=== PATIENT | female | born 1935 | race Caucasian/White ===

== ENCOUNTER → 2021-04-23 15:33 | Outpatient (BNVA) | payer MEDICARE, SELFPAY | PROVIDERS: Family Provider Family Medicine; PCP Family Medicine; Visit Provider Emergency Medicine | DX: R53.83 Other fatigue (principal); Z86.39 Personal history of other endocrine, nutritional and metabolic disease; I50.9 Heart failure, unspecified | CPT/HCPCS: 80053; 81000; 82652; 83880; 84443; 85025 ==

== ENCOUNTER → 2022-02-04 12:34 | Outpatient (BNVA) | payer MEDICARE, SELFPAY | PROVIDERS: Family Provider Family Medicine; PCP Family Medicine; Visit Provider Emergency Medicine | DX: M81.0 Age-related osteoporosis without current pathological fracture (principal); M54.50 Low back pain, unspecified; Z98.890 Other specified postprocedural states; Z87.81 Personal history of (healed) traumatic fracture | CPT/HCPCS: 72100 ==

== ENCOUNTER 2022-02-18 15:34 | Outpatient (CLI) | payer MEDICARE, SELFPAY ==
--- NOTE | 2022-02-18 16:45 | MR_ITS ---
WS: [id number] MRI LUMBAR SPINE NONCONTRAST HISTORY: M54.50 - Low back pain, unspecified COMPARISON: 05/28/2016 TECHNIQUE: Sagittal and axial multisequence imaging is submitted. Marked increase in thoracic kyphosis and mild increase in cervical lordosis. Multiple thoracic spine compression fractures including T6, T7, T8 and T12. Mild thoracolumbar scoliosis. Prior vertebroplasties at T12, L1, L2 and L4. New marrow edema througho ut the L3 vertebral body with minimal loss of height by approximately 10% is new. No additional acute compression fracture. No retropulsion of the L3 vertebral body. Disc spaces are desiccated and narrowed throughout. Conus terminates normally at L1-2 disc level. T12-L1: Mild asymmetric disc bulge with a shallow LEFT paracentral disc protrusion, mild facet and li gamentum flavum hypertrophy. Very slight retropulsion of the posterior superior endplate of L1 simila r to the prior study. L1-L2: Mild annular disc bulge slight retrolisthesis of the posterior superior endplate of L2. Mild e ncroachment upon the ventral thecal sac and subarticular recesses. No high-grade stenosis. L2-L3: Mild annular disc bulge with a central disc protrusion. Mild facet and ligamentum flavum hyper trophy with mild RIGHT foraminal narrowing. L3-L4: Mild annular disc bulge with marked ligamentum flavum and facet arthritis. Mild encroachment i nto the thecal sac and subarticular recesses. Only mild foraminal narrowing. L4-L5: Mild annular disc bulging with mild ligamentum flavum hypertrophy and facet arthritis. Mild RI GHT foraminal stenosis. L5-S1: Mild annular disc bulge. No stenosis. Bilateral renal cysts. Cholelithiasis. MR/MR lumbar spine wo con* [id number] IMPRESSION: 1. New acute minimal, 10% compression fracture L3. No retropulsion. 2. Multiple prior vertebroplasties including T12, L1, L2 and L4. 3. Minimal retropulsion of the posterior superior endplate of L1 and L2 withou t stenosis. 4. Marked facet joint arthritis and ligamentum flavum hypertrophy with osteope vianney. 5. Shallow LEFT paracentral disc protrusion at T12-L1 contacts the LEFT latera l thecal sac without significant stenosis.
== END 2022-02-18 15:35 | disposition home or self-care (01) ==
PROVIDERS: PCP Family Medicine; Visit Provider Family Medicine
DX: M54.50 Low back pain, unspecified (principal); Z87.81 Personal history of (healed) traumatic fracture; Z98.890 Other specified postprocedural states; M47.819 Spondylosis without myelopathy or radiculopathy, site unspecified; M85.80 Other specified disorders of bone density and structure, unspecified site
CPT/HCPCS: 72148

== ENCOUNTER → 2022-02-24 08:39 | Outpatient (BNVA) | payer MEDICARE, SELFPAY | PROVIDERS: PCP Family Medicine; Visit Provider Anesthesiology Pain Medicine | DX: M47.816 Spondylosis without myelopathy or radiculopathy, lumbar region (principal); M51.16 Intervertebral disc disorders with radiculopathy, lumbar region; Z98.890 Other specified postprocedural states; Z79.891 Long term (current) use of opiate analgesic | CPT/HCPCS: 99205 ==

== ENCOUNTER 2022-03-12 05:18 | Day surgery (SDC) | payer MEDICARE, SELFPAY ==
[2022-03-11 12:06] VITALS: BMI 21.9
[2022-03-12] VITALS (10 sets, daily range): BP systolic 101–160; BP diastolic 57–74; PULSE 72–83; RESP 16–24; TEMP 36.1–36.6; O2SAT 91–100
--- NOTE | 2022-03-12 | SCC_ITS ---
Procedure done: Kyphoplasty L L3 104.7 seconds of fluoroscopic guidance, for a cumulative dose of 57.77 mGy, was provided to Dr. Hooker by the radiology department. C-arm images of the lumbar spine were saved for the patient's permanent record. [facility]
[2022-03-12] MEDS: sodium chloride 0.9% 1,000 ML 30 ML IV (06:18)
--- NOTE | 2022-03-12 06:39 | SC_ITS ---
WS: [id number] C-arm fluoroscopy for kyphoplasty, 03/12/2022 Clinical Data: intra-op Comparison: None. Findings: A lumbar kyphoplasty is performed. SC/C-arm FL for Kyphoplasty Impression: Lumbar kyphoplasty.
--- NOTE | 2022-03-12 06:55 | W.PM.OPSUD ---
Surgery/Procedure H&P Update DATE OF PROCEDURE: March 12, 2022 DATE H&P PERFORMED: 03/12/22 CHANGES TO PREVIOUS DOCUMENTATION: None PREOP DIAGNOSIS: L3 compression fracture PRIMARY INDICATION FOR PROCEDURE: pain, fracture PLANNED PROCEDURE: Operation Date: 03/12/22 07:00 Proposed Procedures p Kyphoplasty [id number],S32.030A(Not Applicable) - Conor Hooker MD ADDITIONAL INFORMATION: Choice, general/mac
[2022-03-12] MEDS: ceFAZolin 1,000 MG in sodium chloride 0.9% (plus) 50 ML 100 MG IV (06:59)
[2022-03-12] MEDS: iohexol 300 mg/mL 100 mL Btl 30 ML IV (07:35)
--- NOTE | 2022-03-12 13:07 | P.OP_ITS ---
Operative Report Date of procedure: March 12, 2022 Pre-op diagnosis: Preop Diagnosis L3 compression fracture Post-op diagnosis: L3 compression fracture Procedure: Pre-op diagnosis: Preop Diagnosis ? compression fracture? Post-op diagnosis: Compression fracture of L3 vertebral body Post-op findings: Compression fracture of L3 vertebral body Procedure done: Kyphoplasty L L3 Pathology: L3 bone biopsy sent Surgeon: Conor Hooker MD Estimated blood loss: 25 IV fluids: Per anesthesia Brief History: History of compression fractures Procedure: PREOPERATIVE DIAGNOSIS:??Compression fracture of L3 vertebral bodies POSTOPERATIVE DIAGNOSIS: Same PROCEDURE: 1 .?Kyphoplasty L3 2.? Fluoroscopic Guidance of the above SURGEON:? Conor Hooker M.D. ANESTHESIA:? Local Anesthesia PROCEDURE IN DETAIL:? Informed consent was obtained, explaining risks, benefits, and alternatives of the procedure to the patient.?? Operative site was marked in the holding area.? The patient was then taken to the procedure room and placed in the prone position on the procedure table.? The back and buttocks were prepped with ? ? ChloraPrep solution and a sterile drape was applied.? A time-out was performed to verify the correct patient, procedure, and location. Using fluoroscopy, the spine was examined.? The ( L3 ) ?level was verified in AP and lateral views.? I planned a bilateral trans pedicular approach.? The right side approach was marked with a skin marker.? A small stab incision was made with a #15 blade.? The introducer cannula was advanced to dock with the right pedicle in an AP view.?? It was advanced through the pedicle using a mallet in both AP and lateral views, taking care not to traverse the medial aspect of the pedicle in the AP view until the tip was into the vertebral body.? ??The cannula was advanced to the posterior third of the body in a lateral view.? Following this a biopsy probe was advanced to the anterior 1/3 of the vertebral body and withdrawn under fluoro guidance. ?The manual drill was used to then create space into which deploy the balloon.? Balloon was then placed and inflated.?? Position in AP and lateral views was optimal. Next the left side approach was identified and marked with a skin marker.? A small stab incision was made with a #15 blade.? The introducer cannula was advanced to dock with the pedicle in an AP view.?? It was advanced through the pedicle using a mallet in both AP and lateral views, taking care not to traverse the medial aspect of the pedicle in the AP view until the tip was into the verte bral body.? ??The cannula was advanced to the posterior third of the body in a lateral view.?? The manual drill was used to then create space into which deploy the balloon.? Balloon was then placed and inflated.?? Position in AP and lateral views was optimal. Balloons were removed and I placed barium impregnated PMMA cement under direct fluoroscopic visualization ruling out extravasation or vascular uptake.? There was good interdigitization and filling of the vertebral? body. The cannulas were removed making sure not to withdraw any cement. 3-0 nylon was used to close the minimal incision and sterile dressing was applied. The patient tolerated the procedure well with no apparent complications. ? IMPRESSION: successful?Kyphoplasty L3
--- NOTE | 2022-03-12 14:42 | ANE.PACU2 ---
Inpatient post-anesthesia follow up: Airway intact: Yes Vital signs: Temperature 97.2 F Pulse Rate 81 Respiratory Rate 18 Blood Pressure 101/57 Pulse Oximetry 95 Oxygen Delivery Me thod Room Air Oxygen Flow Rate 8 Fraction of Inspir ed Oxygen Hydration adequate: Yes Nausea and vomiting: No Pain level: 3 Mental status: Baseline
== END 2022-03-12 10:15 | disposition home or self-care (01) ==
PROVIDERS: PCP Family Medicine; Visit Provider Anesthesiology Pain Medicine
PROC: (CPT 22514; principal; 2022-03-12 07:00)
DX: S32.030A Wedge compression fracture of third lumbar vertebra, initial encounter for closed fracture (principal); X58.XXXA Exposure to other specified factors, initial encounter; K21.9 Gastro-esophageal reflux disease without esophagitis; M19.90 Unspecified osteoarthritis, unspecified site; M81.0 Age-related osteoporosis without current pathological fracture
CPT/HCPCS: 22514; 76000; 88307; 88311; J0690; J1100; J2001; J2370; J2405; J2704; J3010; J3490; J7030; Q9967

== ENCOUNTER → 2022-03-24 09:22 | Outpatient (BNVA) | payer MEDICARE, SELFPAY | PROVIDERS: PCP Family Medicine; Visit Provider Anesthesiology Pain Medicine | DX: M54.41 Lumbago with sciatica, right side (principal); Z79.891 Long term (current) use of opiate analgesic | CPT/HCPCS: 99212 ==

== ENCOUNTER → 2022-04-13 09:52 | Outpatient (BNVA) | payer MEDICARE, SELFPAY | PROVIDERS: PCP Family Medicine; Visit Provider Anesthesiology Pain Medicine | DX: M54.16 Radiculopathy, lumbar region (principal); M54.41 Lumbago with sciatica, right side | CPT/HCPCS: 72110; 99214 ==

== ENCOUNTER → 2022-04-29 09:50 | Outpatient (BNVA) | payer MEDICARE, SELFPAY | PROVIDERS: PCP Family Medicine; Visit Provider Anesthesiology Pain Medicine | DX: M54.41 Lumbago with sciatica, right side (principal) | CPT/HCPCS: 99213; 99214 ==

== ENCOUNTER 2022-06-01 13:45 | Outpatient (CLI) | payer MEDICARE, SELFPAY ==
--- NOTE | 2022-06-01 14:30 | MR_ITS ---
WS: [id number] MRI LUMBAR SPINE NONCONTRAST HISTORY: Osteoporosis. Fractures. Low back pain radiating down LEFT leg. COMPARISON: 02/18/2022 TECHNIQUE: Sagittal and axial multisequence imaging is submitted. Marked increase in thoracic kyphosis centered at T6-7. Mild anterior wedging of T6, T7, T8. Numerous prior kyphoplasty' s are identified beginning at T12-L4. New compression fracture at L5 by 2 5%. There is marrow edema in the L5 vertebral body. The remaining fractures have not changed. Disc spaces are narrowed and desiccated throughout. Conus terminates normally at L1-2 disc level. T12-L1: Mild disc bulging with a LEFT paracentral disc protrusion. L1-L2: Mild disc bulging centrally. No stenosis. L2-L3: Mild disc bulge with a central disc protrusion. Mild bilateral foraminal narrowing. L3-L4: Mild disc bulge. Mild facet arthritis. L4-L5: Mild disc bulging and facet arthritis. L5-S1: Mild disc bulging. No stenosis. LEFT renal cyst 10 mm. MR/MR lumbar spine wo con* [id number] IMPRESSION: 1. New L5 compression fracture, 25% without retropulsion. 2. Multiple prior kyphoplasty' s from T12 through T4. 3. Mild anterior wedging of T6 through T8.
== END 2022-06-01 13:46 | disposition home or self-care (01) ==
LOC: RAD 13:45
PROVIDERS: PCP Family Medicine; Visit Provider Anesthesiology Pain Medicine
DX: Z13.1 Encounter for screening for diabetes mellitus (principal); M81.0 Age-related osteoporosis without current pathological fracture; M54.16 Radiculopathy, lumbar region; S32.059A Unspecified fracture of fifth lumbar vertebra, initial encounter for closed fracture; X58.XXXA Exposure to other specified factors, initial encounter; M89.49 Other hypertrophic osteoarthropathy, multiple sites
CPT/HCPCS: 72148; 80048

== ENCOUNTER → 2022-06-02 08:53 | Outpatient (BNVA) | payer MEDICARE, SELFPAY | PROVIDERS: PCP Family Medicine; Visit Provider Anesthesiology Pain Medicine | DX: M54.41 Lumbago with sciatica, right side (principal); S32.050A Wedge compression fracture of fifth lumbar vertebra, initial encounter for closed fracture; X58.XXXA Exposure to other specified factors, initial encounter | CPT/HCPCS: 99214 ==

== ENCOUNTER → 2022-09-15 10:36 | Outpatient (BNVA) | payer MEDICARE, SELFPAY | PROVIDERS: PCP Family Medicine; Visit Provider Family Medicine | DX: R60.0 Localized edema (principal); I10 Essential (primary) hypertension | CPT/HCPCS: 80053; 83880 ==

== ENCOUNTER 2022-12-24 06:00 | Outpatient (RCR) | payer MEDICARE, SELFPAY | END 2022-12-27 23:59 | disposition home or self-care (01) | LOC: MPT 06:00 | PROVIDERS: PCP Family Medicine; Visit Provider Family Medicine | DX: R26.9 Unspecified abnormalities of gait and mobility (principal); M54.50 Low back pain, unspecified | CPT/HCPCS: 97162 ==

== ENCOUNTER 2022-12-28 06:00 | Outpatient (RCR) | payer MEDICARE, SELFPAY | END 2023-01-27 23:59 | disposition home or self-care (01) | LOC: MPT 06:00 | PROVIDERS: PCP Family Medicine; Visit Provider Family Medicine | DX: M54.50 Low back pain, unspecified (principal); R26.89 Other abnormalities of gait and mobility | CPT/HCPCS: 97110; 97112; 97140 ==

== ENCOUNTER 2023-01-28 06:00 | Outpatient (RCR) | payer MEDICARE, SELFPAY | END 2023-02-26 23:59 | disposition home or self-care (01) | LOC: MPT 06:00 | PROVIDERS: PCP Family Medicine; Visit Provider Family Medicine | DX: M54.59 Other low back pain (principal); R26.81 Unsteadiness on feet | CPT/HCPCS: 97110; 97112; 97140 ==

== ENCOUNTER 2023-02-27 06:00 | Outpatient (RCR) | payer MEDICARE, SELFPAY | END 2023-03-29 23:59 | disposition home or self-care (01) | LOC: MPT 06:00 | PROVIDERS: PCP Family Medicine; Visit Provider Family Medicine | DX: R26.9 Unspecified abnormalities of gait and mobility (principal); M54.50 Low back pain, unspecified | CPT/HCPCS: 97110; 97112 ==

== ENCOUNTER → 2023-03-23 14:54 | Outpatient (BNVA) | payer MEDICARE, SELFPAY | PROVIDERS: PCP Family Medicine; Visit Provider Nurse Practitioner Family | DX: M25.562 Pain in left knee (principal); M25.462 Effusion, left knee | CPT/HCPCS: 73562 ==

== ENCOUNTER → 2023-08-13 08:50 | Outpatient (BNVA) | payer MEDICARE, SELFPAY | PROVIDERS: PCP Family Medicine; Visit Provider Emergency Medicine | DX: M54.6 Pain in thoracic spine (principal) | CPT/HCPCS: 72070 ==

== ENCOUNTER 2023-08-14 11:46 | Emergency (ER) | payer MEDICARE, SELFPAY ==
--- NOTE | 2023-08-14 11:50 | CTR_ITS ---
PROCEDURE INFORMATION: Exam: CT Thoracic Spine Without Contrast Exam date and time: 08/14/2023 12:02 PM Age: 87 years old Clinical indication: Pain in thoracic spine TECHNIQUE: Imaging protocol: Computed tomography of the thoracic spine without contrast. Radiation optimization: All CT scans at this facility use at least one of these dose optimization techniques: automated exposure control; mA and/or kV adjustment per patient size (includes targeted exams where dose is matched to clinical indication); or iterative reconstruction. REPORTING DATA: Count of CT and Cardiac NM exams in prior 12 months: This patient has received 0 known CTs and 0 known cardiac nuclear medicine studies in the 12 months prior to the current study. COMPARISON: CR XR thoracic spine 2V [id number] 08/13/2023 9:00 AM RADIATION DOSE METRICS: Total DLP (mGy-cm): 307.36 FINDINGS: Bones/joints: No acute fracture or subluxation is evident. Anterior wedge compression deformities of the T5 through T8 vertebral bodies are noted with no focal cortical discontinuity identified to suggest acuity. Diffuse osteopenia. T12 compression fracture, and L1 compression fracture partially imaged, status post prior vertebroplasty. Retropulsion of bony material at T12 is noted. Diffuse osteopenia. Soft tissues: There is no paraspinous soft tissue swelling evident. Lungs: Calcified 9 mm nodule in the right upper lobe. Lungs, where imaged demonstrates scattered scarring and/or atelectasis. Additionally, there is a 7 mm ground-glass opacity in the left upper lobe (series 3, image 41). Coronary arteries: Atherosclerosis of major vasculature including coronaries. CT/CT thoracic spin wo con* [id number] IMPRESSION: 1. Left upper lobe 7 mm ground-glass opacity. Per current Fleischner recommendations,Recommend CT Chest at 6-12 months to confirm persistence of the nodule, then CT Chest at 3 years and 5 years. (Reference: Ros) 2. No acute thoracic spine fracture or subluxation identified. Compression fracture deformity of T5 demonstrates chronic features. 3. Osteopenia. 4. Atherosclerosis including coronary. REFERENCES: Ros Harding et al. Guidelines for Management of Incidental Pulmonary Nodules Detected on CT Images: From the Fleischner Society 2017. Radiology. 2017;284(1):228-243.
[2023-08-14 11:51] VITALS: BP 159/67; PULSE 75; RESP 14; TEMP 36.4; O2SAT 97; BMI 20.2
--- NOTE | 2023-08-14 11:51 | ED_ITS ---
HPI - Back Pain/Injury General: Chief Complaint: Back Pain/Injury Stated Complaint: BACK PAIN Time Seen by Provider: 08/14/23 11:47 Source: patient and EMS Mode of arrival: EMS Limitations: no limitations History of Present Illness: 87-year-old female states she been havin g thoracic back pain over the last 3 to 4 days she had an x-ray done yesterday that showed a possible thoracic wedge fracture. States she takes ibuprofen she been having worsening pain today states she actually had less pain since she has been in the ambulance her pain currently is a 2 out of 10 denies difficulty walking denies any urinary incontinence. 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 GERD (gastroesophageal reflux disease) Osteoarthritis Surgical History History of kyphoplasty H/O hemorrhoidectomy H/O cervical spine surgery Family History Mother Diabetes Stroke Brother Cancer Father Heart disease Social History Smoking and tobacco/nicotine status: never used tobacco/nicotine Second hand smoke exposure: No Alcohol intake: never Substance/Drug Use: never Do you think of yourself as: Straight/Heterosexual Current gender identity: Female Female Reproductive History: Spontaneous abortions: No Physical Exam Const: COMMON NORMALS: no acute distress, patient oriented x3 and healthy appearing HENMT: COMMON NORMALS: normocephalic and atraumatic HEAD & SCALP: normocephalic and atraumatic Neck/C-Spine: COMMON NORMALS: full ROM and supple Chest: COMMONS NORMALS: normal inspection of the chest Resp: COMMON NORMALS: normal respiratory effort Cardio: COMMON NORMALS: regular rate, regular rhythm and No murmurs present (Cardio) RATE: regular rate RHYTHM: regular rhythm Back/Pelvis: OTHER: Tenderness over thoracic spine Extremity: COMMON NORMALS: normal to inspection and full ROM Neuro: COMMON NORMALS: patient oriented x3, moves all extremities and no focal motor deficits Psych: COMMON NORMALS: mental status grossly normal, Normal thought process present and cooperative THOUGHT PROCESS: Normal thought process present Skin: COMMON NORMALS: no rashes or lesions noted and no wounds GENERAL SKIN EXAM: no rashes or lesions noted Course Vital Signs: Vital signs: Vital Signs Temperature 97.6 F 08/14/23 11:51 Pulse Rate 75 08/14/23 11:51 Respiratory Rate 14 08/14/23 11:51 Blood Pressure 159/67 08/14/23 11:51 Pulse Oximetry 97 08/14/23 11:51 Oxygen Delivery Me thod Room Air 08/14/23 11:51 MDM - Back Pain/Injury Medical Decision Making Patient presents here with back pain CT of her thoracic spine showed no acute fractures her pain is resolved here she feels much improved I did inform her of the findings concerning in her chest did recommend follow-up with her PCP and likely an outpatient chest CT through her PCP she is return if worsening she understands agrees to plan. Medical Records I reviewed the patient's medical records. Labs I reviewed the patient's lab results. Radiology Impressions Thoracic Spine CT 08/14/23 11:50 IMPRESSION: 1. Left upper lobe 7 mm ground-glass opacity. Per current Fleischner recommendations,Recommend CT Chest at 6-12 months to confirm persistence of the nodule, then CT Chest at 3 years and 5 years. (Reference: Ros) 2. No acute thoracic spine fracture or subluxation identified. Compression fracture deformity of T5 demonstrates chronic features. 3. Osteopenia. 4. Atherosclerosis including coronary. REFERENCES: Ros Harding et al. Guidelines for Management of Incidental Pulmonary Nodules Detected on CT Images: From the Fleischner Society 2017. Radiology. 2017;284(1):228-243. Chest X-Ray 08/14/23 12:41 IMPRESSION: No acute cardiopulmonary abnormality identified. The ground-glass opacity noted by thoracic spine CT will require follow-up by CT as it is not visualized by chest x-ray. Linear/oval densities overlying the left mid lung likely soft tissue calcification or density external to the patient. All radiology interpretation(s) finalized by discharge Discharge Plan Discharge Patient Disposition: Home Clinical Impression: Back pain, thoracic Qualifiers: Chronicity: unspecified Back pain laterality: unspecified Qualified Code(s): M54.6 - Pain in thoracic spine Condition: Stable Prescriptions: No Action loratadine [Allergy Relief (loratadine)] 10 mg tablet 10 mg PO QDAY PRN (Reason: allergies) ibuprofen 200 mg tablet 200 mg PO Q6H PRN (Reason: Pain) tramadol 50 mg tablet 50 mg PO BID PRN (Reason: pain) 7 Days Qty: 14 0RF tizanidine 2 mg tablet 2 mg PO Q8H PRN (Reason: muscle spasticity) Qty: 30 2RF fluticasone propionate [Flonase Allergy Relief] 50 mcg/actuation spray,suspension 2 spray intranasal DAILY Qty: 16 5RF albuterol sulfate [Ventolin HFA] 90 mcg/actuation HFA aerosol inhaler 1 puff INHALATION QID PRN (Reason: shortness of breath or wheezing) Qty: 18 3RF clobetasol 0.05 % ointment 1 applic topical .COMPLEX PRN (Reason: Itching) Rx Instructions: 1 applic topical; apply to lip 3x weekly chlorhexidine gluconate 0.12 % mouthwash See Rx Instructions .ROUTE .COMPLEX Rx Instructions: RINSE WITH ONE CAP FULL FOR THIRTY SECONDS AND SPIT OUT. USE TWICE DAILY Antifungal (clotrimazole) 1 % cream 1 applic topical BID PRN (Reason: FLARES) Discharge Orders: Discharge ED (Routine); Ordered 08/14/23 Ordered By: Salud Tiwari Referrals: Deya Torres MD [Primary Care Provider] - 1-3 days Discharge Diet: Advance as tolerated Discharge Activity: Resume usual activity Patient Instructions: Back Pain (ED) Coding Level of Care Code ED [employer] Analyst for Rohit Browne
--- NOTE | 2023-08-14 12:41 | XRR_ITS ---
PROCEDURE INFORMATION: Exam: XR Chest Exam date and time: 08/14/2023 12:48 PM Age: 87 years old Clinical indication: Mass, lump, or swelling in the chest; Prior surgery; Surgery date: 6+ months; Surgery type: Kyphos TECHNIQUE: Imaging protocol: Radiologic exam of the chest. Views: 1 view. COMPARISON: CT thoracic spin wo con* [id number] 08/14/2023 12:02 PM FINDINGS: Lungs: Calcified nodule again noted in the right upper lobe. There is no acute pneumonia or edema evident. Linear densities overlie the left mid lung, not fully characterized but favored external to the patient. Pleural spaces: No pleural effusion identified. Heart/Mediastinum: The heart is not enlarged. The mediastinum is not enlarged. The heart and mediastinum are not enlarged. Vasculature: Thoracic aorta is mildly tortuous and elongated. Diaphragm: Small posterior diaphragmatic eventration or Bochdalek hernias noted. Bones/joints: Multilevel thoracolumbar kyphoplasties. XR/XR chest 1V portable [id number] IMPRESSION: No acute cardiopulmonary abnormality identified. The ground-glass opacity noted by thoracic spine CT will require follow-up by CT as it is not visualized by chest x-ray. Linear/oval densities overlying the left mid lung likely soft tissue calcification or density external to the patient.
== END 2023-08-14 13:33 | disposition home or self-care (01) ==
PROVIDERS: Emergency Provider Emergency Medicine; PCP Family Medicine
DX: M54.6 Pain in thoracic spine (principal); M85.88 Other specified disorders of bone density and structure, other site; I25.10 Atherosclerotic heart disease of native coronary artery without angina pectoris
CPT/HCPCS: 71045; 72128; 99284

== ENCOUNTER → 2023-10-07 15:39 | Outpatient (BNVA) | payer MEDICARE, SELFPAY | PROVIDERS: PCP Family Medicine; Visit Provider Emergency Medicine | DX: R05.9 Cough, unspecified (principal) | CPT/HCPCS: 71046 ==

== ENCOUNTER 2023-11-24 06:00 | Outpatient (RCR) | payer MEDICARE, SELFPAY | END 2023-11-28 23:59 | disposition home or self-care (01) | LOC: MPT 06:00 | PROVIDERS: PCP Family Medicine; Visit Provider Family Medicine | DX: M54.50 Low back pain, unspecified (principal); G89.29 Other chronic pain | CPT/HCPCS: 97162 ==

== ENCOUNTER 2023-11-29 06:00 | Outpatient (RCR) | payer MEDICARE, SELFPAY | END 2023-12-28 23:59 | disposition home or self-care (01) | LOC: MPT 06:00 | PROVIDERS: PCP Family Medicine; Visit Provider Family Medicine | DX: M54.50 Low back pain, unspecified (principal); G89.29 Other chronic pain | CPT/HCPCS: 97110; G0283 ==

== ENCOUNTER → 2024-04-10 15:36 | Outpatient (BNVA) | payer MEDICARE, SELFPAY | PROVIDERS: PCP Family Medicine; Referring Provider Nurse Practitioner; Visit Provider Nurse Practitioner | DX: M85.89 Other specified disorders of bone density and structure, multiple sites (principal) | CPT/HCPCS: 73523 ==

== ENCOUNTER → 2024-04-20 10:04 | Outpatient (BNVA) | payer MEDICARE, SELFPAY | PROVIDERS: PCP Family Medicine; Visit Provider Family Medicine | DX: R82.90 Unspecified abnormal findings in urine (principal) | CPT/HCPCS: 81000 ==

== ENCOUNTER → 2024-07-26 16:29 | Outpatient (BNVA) | payer MEDICARE, SELFPAY | PROVIDERS: PCP Family Medicine; Visit Provider Emergency Medicine | DX: R30.0 Dysuria (principal); N39.0 Urinary tract infection, site not specified | CPT/HCPCS: 81000; 87086 ==

== ENCOUNTER 2024-12-27 14:21 | Outpatient (CLI) | payer MEDICARE, SELFPAY ==
--- NOTE | 2024-12-27 14:29 | XR_ITS ---
WS: [email or web address] Right foot, 3 views, 12/27/2024 Clinical Data: M79.671 - Pain in right foot Comparison: None. Findings: No fractures or dislocations are seen. No bone destruction or erosion is noted. There is a small bunion over the head of the right first metatarsal. There is a plantar spur. XR/XR foot RT min 3V* [id number] Impression: Small bunion at head of right first metatarsal.
--- NOTE | 2024-12-27 14:29 | XR_ITS ---
WS: [email or web address] Right ankle, 3 views, 12/27/2024 Clinical Data: M79.671 - Pain in right foot Comparison: None. Findings: No fractures or dislocations are seen. The ankle mortise is normal. The talus and calcaneus are unremarkable. There is soft tissue swelling over the medial and lateral malleolus. There is a plantar spur. XR/XR ankle RT min 3V* [id number] Impression: 1. Negative for right ankle fracture. 2. Soft tissue swelling over medial and lateral malleolus.
--- NOTE | 2024-12-27 15:15 | USCV_ITS ---
Abril Sanchez Age: 89 Gender: F : 1935 Exam Date: 12/27/2024 15:01 Ordering Phys: Deya Torres MD Technologist: [employer] [place] [facility] [place]: [place] lower extrmity pain HISTORY: right lower extremity pain PROCEDURES: Venous duplex imaging was performed in only the right lower extremity. The following venous structures were evaluated: common femoral vein, profunda vein, proximal portion of the greater saphenous vein, superficial femoral vein, and the popliteal vein. In addition, the posterior tibial and peroneal trunk were evaluated. FINDINGS: Normal 2-D Doppler and augmentation and compressibility throughout the lower extremity venous structures. Additional imaging through the proximal calf veins also reveals no thrombus. Limited evaluation of the greater saphenous vein is patent with no thrombus. CONCLUSIONS No DVT right lower extremity. Dr. Freya Taalmantes DO (Electronically Signed) Final Date: 27 December 2024 15:46 S
== END 2024-12-27 14:22 | disposition home or self-care (01) ==
LOC: RAD 14:21
PROVIDERS: PCP Family Medicine; Visit Provider Family Medicine
DX: M21.611 Bunion of right foot (principal); M79.661 Pain in right lower leg; M79.89 Other specified soft tissue disorders; M77.8 Other enthesopathies, not elsewhere classified
CPT/HCPCS: 73610; 73630; 93971

== ENCOUNTER → 2025-01-15 11:18 | Outpatient (BNVA) | payer MEDICARE, SELFPAY | PROVIDERS: PCP Family Medicine; Visit Provider Family Medicine | DX: M10.9 Gout, unspecified (principal); M79.89 Other specified soft tissue disorders; M79.604 Pain in right leg; M79.671 Pain in right foot | CPT/HCPCS: 84550 ==

== ENCOUNTER 2025-01-17 09:15 | Outpatient (CLI) | payer MEDICARE, SELFPAY ==
--- NOTE | 2025-01-17 09:21 | XRR_ITS ---
PROCEDURE INFORMATION: Exam: XR Thoracic Spine Exam date and time: 01/17/2025 9:26 AM Age: 89 years old Clinical indication: Pain in thoracic spine; Prior surgery; Surgery date: 6+ months; Surgery type: Kyphoplasty, cervical spine surgery; Pain in upper back and posterior left shoulder x1 months, no specific injury; Additional info: M54.9 - dorsalgia, unspecified TECHNIQUE: Imaging protocol: Radiologic exam of the thoracic spine. Views: 3 views. COMPARISON: CT thoracic spin wo con* [id number] 08/14/2023 12:02 PM FINDINGS: Bones/joints: Post kyphoplasty changes are seen in the T12, L1, L2, L3 and L4 vertebral bodies. Chronic compression deformities involving the T5, T6, T7 and T8 vertebral bodies are seen. No definite acute fracture. Soft tissues: Unremarkable. Vasculature: Calcified atherosclerotic changes are seen in the thoracic aorta. XR/XR thoracic spine 3V* [id number] IMPRESSION: 1. Chronic compression deformities involving the T5, T6, T7 and T8 vertebral bodies. 2. Additional findings as described.
--- NOTE | 2025-01-17 09:21 | XRR_ITS ---
PROCEDURE INFORMATION: Exam: XR Left Shoulder Exam date and time: 01/17/2025 9:26 AM Age: 89 years old Clinical indication: Pain in upper back and posterior left shoulder x1 months, no specific injury; Additional info: M89.8x1 - other specified disorders of bone, shoulder TECHNIQUE: Imaging protocol: Radiologic exam of the left shoulder. Views: 2 or more views. COMPARISON: CR XR chest 2V* [id number] 10/07/2023 3:53 PM FINDINGS: Bones/joints: Diffuse osteopenia. Up to mild AC joint DJD with preservation of the remaining left shoulder joint spaces. No acute fracture or dislocation Soft tissues: Normal. XR/XR shoulder LT min 2V* [id number] IMPRESSION: See above
== END 2025-01-17 09:16 | disposition home or self-care (01) ==
PROVIDERS: PCP Family Medicine; Visit Provider Family Medicine
DX: M89.8X1 Other specified disorders of bone, shoulder (principal); M62.830 Muscle spasm of back; M48.54XD Collapsed vertebra, not elsewhere classified, thoracic region, subsequent encounter for fracture with routine healing; M85.812 Other specified disorders of bone density and structure, left shoulder; Z98.890 Other specified postprocedural states; I70.0 Atherosclerosis of aorta
CPT/HCPCS: 72072; 73030

== ENCOUNTER 2025-01-28 05:00 | Outpatient (RCR) | payer MEDICARE, SELFPAY | END 2025-02-26 23:59 | disposition home or self-care (01) | LOC: MPT 05:00 | PROVIDERS: PCP Family Medicine; Visit Provider Podiatrist Foot & Ankle Surgery | DX: M72.2 Plantar fascial fibromatosis (principal) | CPT/HCPCS: 97110; 97140; 97162 ==

== ENCOUNTER → 2025-02-05 14:55 | Outpatient (BNVA) | payer MEDICARE, SELFPAY | PROVIDERS: PCP Family Medicine; Visit Provider Nurse Practitioner | DX: R60.9 Edema, unspecified (principal); R06.00 Dyspnea, unspecified | CPT/HCPCS: 83880 ==

== ENCOUNTER → 2025-02-27 08:47 | Outpatient (BNVA) | payer MEDICARE, SELFPAY | PROVIDERS: PCP Family Medicine; Visit Provider Family Medicine | DX: R82.90 Unspecified abnormal findings in urine (principal) | CPT/HCPCS: 81000 ==

== ENCOUNTER 2025-04-01 15:53 | Emergency (ER) | payer MEDICARE, SELFPAY ==
[2025-04-01 15:54] VITALS: BP 119/80; PULSE 71; RESP 16; TEMP 36.9; O2SAT 93; BMI 18.1
--- NOTE | 2025-04-01 16:03 | XRR_ITS ---
PROCEDURE INFORMATION: Exam: XR Right Hip Exam date and time: 04/01/2025 4:39 PM Age: 89 years old Clinical indication: Hip pain; Right hip; Additional info: RT hip/pelvic pain after bending injury TECHNIQUE: Imaging protocol: Radiologic exam of the right hip. Views: 1 view hip with pelvis when performed. COMPARISON: CR XR hip BI m 5V wo/w pel* [id number] 04/10/2024 3:46 PM FINDINGS: Limitations: Slight medial rotation of the right femur on the frontal views Bones/joints: Osseous demineralization. Normal alignment. No evidence of acute fracture or dislocation. Soft tissues: The soft tissues are within normal limits. XR/XR hip RT 2-3V wo/w pel* [id number] IMPRESSION: No evidence of acute fracture or dislocation.
--- NOTE | 2025-04-01 16:04 | ED_ITS ---
HPI - Back Pain/Injury General: Chief Complaint: Back Pain/Injury Stated Complaint: BACK PAIN Time Seen by Provider: 04/01/25 15:54 Source: patient Mode of arrival: EMS Limitations: no limitations History of Present Illness: Patient is an 89-year-old female who presents the emergency department by ambulance due to a fall 3 days ago and subsequent right lower back pain. 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 States she has been ambulatory since but pain has steadily worsened. Reporting the pain is currently a 7/, she has applied Voltaren and taken [id number] pain medications. No bowel or bladder incontinence, no saddle anesthesia, no paralysis or weakness distally, no other concerning back symptoms. She does report a history of osteoporosis and has had multiple kyphoplasty procedures. MD elicited complaint: back pain Pertinent past history: recent trauma Onset (ago): day(s) (3) Timing: constant Severity: moderate Pain scale (0-10): 7 Location: right lower back Radiation: none Exacerbating factors: movement and walking Context: trauma Associated symptoms: Deny abdominal pain, difficulty walking, fecal incontinence, fever(s) or syncope Related Data Home Medications ?Medication ?Instructions ?Recorded ?Confirmed naproxen sodium 220 mg tablet 220 mg PO BID PRN Fever Or Pain 04/01/25 04/01/25 Previous Rx's ?Medication ?Instructions ?Recorded fluticasone propionate 50 2 spray intranasal DAILY all ergy 05/27/23 mcg/actuation nasal symptoms #16 grams spray,suspension (Flonase Allergy Relief) furosemide 20 mg tablet See Rx Instructions .Route 0 02/26/25 .COMPLEX #30 tabs Allergies Allergy/AdvReac Type Severity Reaction Status Date / Time amoxicillin (From Augmentin) Allergy ADR-Vomitin Verified 03/26/25 09:33 g clavulanic acid (From Allergy ADR-Vomitin Verified 03/26/25 09:33 Augmentin) g Review of Systems General: Reports: 10 or more systems reviewed and unremarkable except in HPI and below Const: Reports: other (denies trauma); Denies: fever(s), change in weight or night sweats Card: Denies: chest pain, lightheadedness or syncope Resp: Denies: dyspnea GI: Denies: abdominal pain or fecal incontinence : Denies: urinary incontinence Musc: Reports: back pain and joint pain (Right hip); Denies: neck pain or extremity pain Skin/Breast: Denies: rash or skin pain Neuro: Denies: headache(s), numbness in extremities, weakness in extremities, sensory changes, lack of coordination, difficulty walking, frequent falls or involuntary movements PFS ED PFSH: Medical History History of compression fracture of spine History of thyroid nodule Osteoporosis 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 GERD (gastroesophageal reflux disease) Osteoarthritis Surgical History History of kyphoplasty H/O hemorrhoidectomy H/O cervical spine surgery Family History Mother Diabetes Stroke Brother Cancer Father Heart disease Social History Smoking and tobacco/nicotine status: never used tobacco/nicotine Second hand smoke exposure: No Alcohol intake: never Substance/Drug Use: never Do you think of yourself as: Straight/Heterosexual Current gender identity: Female Female Reproductive History: Spontaneous abortions: No Physical Exam Const: COMMON NORMALS: no acute distress, patient oriented x3, no limitations and alert NUTRITIONAL APPEARANCE: thin Resp: COMMON NORMALS: normal respiratory effort, No retractions, No use of accessory muscles and clear to auscultation bilaterally AUSCULTATION: clear to auscultation bilaterally Cardio: COMMON NORMALS: regular rate, regular rhythm, S1 normal heart sound present and S2 normal heart sound present RATE: regular rate RHYTHM: regular rhythm HEART SOUNDS: S1 normal heart sound present and S2 normal heart sound present Back/Pelvis: COMMON NORMALS: straight leg raise negative bilaterally OTHER: Normal visual examination. Tender to palpation right lower back. No spinous process tenderness. Full active range of motion. Extremity: COMMON NORMALS: normal to inspection and full ROM NARRATIVE EXTREMITY EXAM: Negative tenderness to palpation to the right hip. No shortening or internal/external rotation. Negative logroll. Distal neurovascular exam is normal. Normal knee and ankle examination. Neuro: COMMON NORMALS: patient oriented x3, moves all extremities, no focal motor deficits, no sensory deficits noted, deep tendon reflexes 2+ bilaterally and gait normal SENSORIUM/ORIENTATION: Yes alert OTHER: L3, L4, L5, and S1 nerve sensations intact. Normal knee jerk and ankle jerk reflexes. Skin: COMMON NORMALS: no rashes or lesions noted GENERAL SKIN EXAM: no rashes or lesions noted Course Vital Signs: Vital signs: Vital Signs Temperature 98.4 F 04/01/25 15:54 Pulse Rate 76 04/01/25 18:45 Respiratory Rate 16 04/01/25 15:54 Blood Pressure 164/70 04/01/25 18:45 Pulse Oximetry 96 04/01/25 18:45 Oxygen Delivery Me thod Room Air 04/01/25 17:08 MDM - Back Pain/Injury Medical Decision Making This patient presented after a fall couple days ago, steadily worsening right lower back pain. Tender to palpation on exam to the right lower back, no obvious signs of trauma or deformity. Normal hip and pelvis examination. No red flag symptoms here. X-ray was negative for any acute findings. Initially denied pain meds, but later asked for something so she was given [place] which did improve her pain a bit. On recheck states she is feeling better well enough to go home, she was noted to be ambulatory here in the ED. Will send a couple of [place] pill for her to break in half and take prior to bed only for breakthrough pain, and she will follow-up with regular provider next week for general reevaluation of her condition. Return precautions given. Labs Radiology Impressions Hip/Pelvis X-Ray 04/01/25 16:03 IMPRESSION: No evidence of acute fracture or dislocation. All radiology interpretation(s) finalized by discharge Discharge Plan Discharge Patient Disposition: Home Clinical Impression: Fall Qualifiers: Encounter type: initial encounter Qualified Code(s): W19.XXXA - Unspecified fall, initial encounter Acute right-sided low back pain Qualifiers: Sciatica presence: without sciatica Qualified Code(s): M54.50 - Low back pain, unspecified Condition: Stable Prescriptions: No Action fluticasone propionate [Flonase Allergy Relief] 50 mcg/actuation spray,suspension 2 spray intranasal DAILY Qty: 16 5RF furosemide 20 mg tablet See Rx Instructions .ROUTE .COMPLEX Qty: 30 1RF Dose Instruction: TAKE 1 TABLET BY MOUTH ONCE DAILY EVERY MORNING NEEDED FOR swelling Rx Instructions: TAKE 1 TABLET BY MOUTH ONCE DAILY EVERY MORNING NEEDED FOR swelling naproxen sodium 220 mg Tablet 220 mg PO BID PRN (Reason: Fever Or Pain) Discharge Orders: Discharge ED (Routine); Ordered 04/01/25 Ordered By: Patric Rico Referrals: Deya Torres MD [Primary Care Provider, [facility]] Patient Instructions: Opioid Safety, Pain Management, Patient Portal & Valente In structions Activity Restrictions/Additional Instructions: Low Back Pain Discharge Diagnosis: Acute right lower back pain after a fall; X-ray negative for fracture. Discharge Instructions: - Activity and Mobility: - Encourage ambulation and resumption of normal activities as tolerated. Strict bed rest should be avoided, as it is associated with worse outcomes, especially in older adults. - Assess and address fall risk at home. Consider referral to physical therapy for gait and balance assessment if mobility is impaired or if there is concern for recurrent falls. - Pain Management: - Nonpharmacologic measures are first-line. Recommend use of a heating pad to the lower back as tolerated (limited but supportive evidence). - Acetaminophen may be considered for mild pain, but NSAIDs should be used with caution in the elderly due to increased risk of gastrointestinal bleeding and renal impairment. - [place] (hydrocodone/acetaminophen) was prescribed for breakthrough pain, with instructions to cut tablets in half and take only before bed. Opioids should be used at the lowest effective dose for the shortest possible duration, given the increased risk of sedation, falls, and other adverse effects in geriatric patients. Monitor for side effects such as constipation, confusion, or excessive sedation. - Avoid muscle relaxants and benzodiazepines, as these are associated with increased risk of adverse events in older adults. - Red Flag Symptoms: - Instruct to seek immediate medical attention for any of the following: new or worsening weakness, numbness, loss of bowel or bladder control, saddle anesthesia, fever, or inability to ambulate. - Fall Prevention and Home Safety: - Review home environment for hazards (loose rugs, poor lighting, lack of grab bars). Consider home health evaluation if indicated. - Assess ability to perform activities of daily living (ADLs). If deficits are present, arrange for additional support or therapy services. - Follow-Up: - Schedule follow-up with primary care provider within 2?3 days for reassessment of pain, function, and medication needs. If pain persists beyond 2 months or there is concern for chronicity, consider referral for supervised exercise or behavioral therapy. - Patient Education: - Reassure regarding the favorable prognosis of acute nonspecific low back pain in the absence of red flags or imaging abnormalities. - Educate on the importance of remaining active and the expected natural course of recovery. Medication Instructions: - [place] (hydrocodone/acetaminophen): Take ? tablet by mouth before bed as needed for pain. Do not exceed prescribed amount. Monitor for side effects. - Acetaminophen: May take as needed for pain, not to exceed 3,000 mg per 24 hours (adjust for hepatic impairment or low body weight). - Avoid NSAIDs unless specifically instructed, due to increased risk in elderly. Additional Notes: - Provide written instructions to patient and caregivers. - Ensure understanding of medication regimen and fall precautions. - Document functional status and any need for durable medical equipment or home health services. References: - The [place] [employer], The [place] [employer], The [place] [employer], and recent reviews in The [place] [employer] and [employer] [employer]. Print Language: Armenian Coding Level of Care Code ED Graduating Machine Operator for Rohit Browne
--- OUTSIDE RECORDS SUMMARY | 2025-04-01 16:21 | XMS_ITS | Encounter Summary ---
Author Organization [facility] Address [address] [place] [address] Care Team Providers Care Laboratory Director Name Role Phone Yumi Alexander DO Primary Care Provider +1- [phone] Encounter Details Date Type Department Care Team (Latest Contact Info) Description 11/04/2006 Outpatient Historical [facility] Breast [place] [facility] [address] [place] [address] [place] [phone] Yaneli Flores MD [address] [place] [phone] Other Screening Mammogram (Primary Dx) Social History Tobacco Use Types Packs/Day Years Used Date Smoking Tobacco: Never Assessed Comments Unknown Sex and Gender Information Value Date Recorded Sex Assigned at Not on file 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
--- OUTSIDE RECORDS SUMMARY | 2025-04-01 16:21 | XMS_ITS | Encounter Summary ---
Author Organization [facility] Address [address] [place] [address] Care Team Providers Care Production Control Scheduler Name Role Phone Yumi Alexander DO Primary Care Provider +1- [phone] Encounter Details Date Type Department Care Team (Latest Contact Info) Description 12/24/2006 Outpatient Historical [facility] Medicine [address] [phone] Yaneli Flores MD [address] [place] [phone] Unspecified Osteoporosis (Primary Dx); Pathologic Fracture of Vertebrae Social History Tobacco Use Types Packs/Day Years Used Date Smoking Tobacco: Never Assessed Comments Unknown Sex and Gender Information Value Date Recorded Sex Assigned at Not on file 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
--- OUTSIDE RECORDS SUMMARY | 2025-04-01 16:21 | XMS_ITS | Encounter Summary ---
Author Organization [facility] Address [address] [place] [address] Care Team Providers Care Coil Tester Name Role Phone Yumi Alexander DO Primary Care Provider +1- [phone] Encounter Details Date Type Department Care Team (Latest Contact Info) Description 11/04/2005 Outpatient Historical [facility] Breast [place] [facility] [place] [address] [place] [phone] Yaenli Flores MD [address] [place] [phone] Other Screening Mammogram (Primary Dx) Social History Tobacco Use Types Packs/Day Years Used Date Smoking Tobacco: Never Assessed Comments Unknown Sex and Gender Information Value Date Recorded Sex Assigned at Not on file 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
--- OUTSIDE RECORDS SUMMARY | 2025-04-01 16:21 | XMS_ITS | Encounter Summary ---
Author Organization [facility] Address [address] [place] [address] Care Team Providers Care Degreasing Solution Reclaimer Name Role Phone Yumi Alexander DO Primary Care Provider +1- [phone] Encounter Details Date Type Department Care Team (Latest Contact Info) Description 09/03/2006 Outpatient Historical [facility] Medicine [address] [phone] Yaneli Flores MD [address] [place] [phone] Dermatophytosis of Nail (Primary Dx) Social History Tobacco Use Types Packs/Day Years Used Date Smoking Tobacco: Never Assessed Comments Unknown Sex and Gender Information Value Date Recorded Sex Assigned at Not on file 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
--- OUTSIDE RECORDS SUMMARY | 2025-04-01 16:21 | XMS_ITS | Encounter Summary ---
Author Organization [facility] Address [address] [place] [address] Care Team Providers Care Medical Receptionist Name Role Phone Yumi Alexander DO Primary Care Provider +1- [phone] Encounter Details Date Type Department Care Team (Latest Contact Info) Description 08/03/2007 Outpatient Historical [address] [phone] Yaneli Flores MD [address] [place] [phone] Routine Gynecological Examination Social History Tobacco Use Types Packs/Day Years Used Date Smoking Tobacco: Never Assessed Comments Unknown Sex and Gender Information Value Date Recorded Sex Assigned at Not on file 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
--- OUTSIDE RECORDS SUMMARY | 2025-04-01 16:21 | XMS_ITS | Encounter Summary ---
Author Organization [facility] Address [address] Attn: Epic Prelude ADT [place] [address] Care Team Providers Care Ehr Trainer Name Role Phone Yumi Alexander Primary Care Provider +1- [phone] Encounter Details Date Type Department Care Team (Late st Contact Info) Description 09/21/2006 Outpatient Historical Leif Abraham MD NO ADDRESS ON FILE Social History Tobacco Use Types Packs/Day Years Used Date Smoking Tobacco: Never Assessed Comments Unknown Sex and Gender Information Value Date Recorded Sex Assigned at Not on file 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 Gender Identity Not on file Sexual Orientation Not on file documented as of this encounter Plan of Treatment Not on file documented as of this encounter Procedures Procedure Name Priority Date/Time Associated Diagnosis Comments LIPID PANEL Routine 09/21/2006 9:15 AM ADULT NURSE 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 documented in this encounter Results * (ABNORMAL) LIPID PANEL (09/21/2006 9:15 AM ADULT NURSE 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) CALCULATED TOTAL CHOLESTEROL TO HDL RATIO 2.76(L) 3.27 - 4.44 INTERFACE SYSTEM CHOLESTEROL 199 75 - 200 mg/dL INTERFACE SYSTEM GLUCOSE 68(L) 70 - 110 mg/dL INTERFACE SYSTEM HDL 72(H) 40 - 60 mg/dL INTERFACE SYSTEM CALCULATED LDL CHOLESTEROL 106 0 - 130 mg/dL INTERFACE SYSTEM TRIGLYCERIDE 107 0 - 200 mg/dL INTERFACE SYSTEM 09/21/2006 9:15 AM ADULT NURSE 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 Leif Abraham MD CHEMISTRY ORDERABLES Edited INTERFACE SYSTEM Refer to clinic/hospital department documented in this encounter Visit Diagnoses Not on filedocumented in this encounter Care Teams Ehr Trainer Relationship Specialty Start Date End Date Yumi Alexander DO PCP - General Family Practice 10/05/17 documented as of this encounter
--- OUTSIDE RECORDS SUMMARY | 2025-04-01 16:21 | XMS_ITS | Encounter Summary ---
Author Organization [facility] Address [address] [place] [address] Care Team Providers Care Figure Refinisher And Repairer Name Role Phone Yumi Alexander DO Primary Care Provider +1- [phone] Encounter Details Date Type Department Care Team (Latest Contact Info) Description 11/04/2005 Outpatient Historical [facility] Breast [place] [facility] [place] [address] [place] [phone] Nicole Watt MD NO ADDRESS ON FILE Other Screening Mammogram (Primary Dx) Social History Tobacco Use Types Packs/Day Years Used Date Smoking Tobacco: Never Assessed Comments Unknown Sex and Gender Information Value Date Recorded Sex Assigned at Not on file 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
--- OUTSIDE RECORDS SUMMARY | 2025-04-01 16:21 | XMS_ITS | Encounter Summary ---
Author Organization [facility] Address [address] [place] [address] Care Team Providers Care Public Address System Mechanic Name Role Phone Yumi Alexander DO Primary Care Provider +1- [phone] Encounter Details Date Type Department Care Team (Late st Contact Info) Description 11/23/2007 Outpatient Historical [facility] [place] [address] 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
--- OUTSIDE RECORDS SUMMARY | 2025-04-01 16:21 | XMS_ITS | Encounter Summary ---
Author Organization [facility] Address [address] [place] [address] Care Team Providers Care Respiratory Care Program Director Name Role Phone Yumi Alexander Primary Care Provider +1- [phone] Encounter Details Date Type Department Care Team (Latest Contact Info) Description 02/16/2008 Outpatient Historical [facility] Imaging Services-Reg[facility] Crow [place] [address] [place] [phone] Sd Constantino MD [address] [place] [phone] Abn Find-Body Struct NEC Social History Tobacco Use Types Packs/Day Years Used Date Smoking Tobacco: Never Assessed Comments Unknown Sex and Gender Information Value Date Recorded Sex Assigned at Not on file 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 There is no adenopathy in the axilla. There is a lymph node anterior to the miguel angel noted on image 41 with a short axis measurement of 1.4 cm but there is a small amount fat in the center of this lymph node. There is a right hilar lymph node on image 38 with a short axis measurement 1.1 cm. There is no pleural effusion and no pericardial effusion. The adrenal glands are unremarkable. The upper poles of the kidneys and spleen are appropriate in appearance. The liver is homogeneous in density. In the right upper lobe on image 47, there is a lobulated soft tissue density pulmonary nodule measuring 1.0 x 0.7 cm. There is some adjacent groundglass density. Just lateral to this nodule is a 4 mm soft tissue nodule. A subtle groundglass density nodule in the left upper lobe on image 46 is identified measuring 0.9 cm in diameter. A subtle nodule in the medial aspect of the right lung image 43 measures 6 mm in size. A 3 mm nodule right lung image 41 is also identified. Degenerative changes are noted in the spine. No bony destructive lesion is identified. There is abundant colonic stool in the upper abdomen. Impression: 1. Several soft tissue density pulmonary nodules are noted. 2. Abnormal lymph nodes are also noted in the mediastinum. In the absence of surgical consultation of biopsy, a follow-up CT in 3 months time is recommended to confirm stability of the nodules. Dictated By: Taryn Escamilla M.D. Electronically Signed By: Taryn Escamilla M.D. Date Signed: 02/23/08 [facility] Procedure Note Taryn Escamilla - 03/24/2008 CT of the chest was performed after injection of 75 mL Optiray-240contrast. There is no adenopathy in the axilla. There is a lymph node anterior tothe miguel angel noted on image 41 with a short axis measurement of 1.4 cm but there is a small amount fat in thecenter of this lymph node. There is a right hilar lymph node on image 38 with a short axismeasurement 1.1 cm. There is no pleural effusion and no pericardial effusion. The adrenal glands are unremarkable.The upper poles of the kidneys and spleen are appropriate in appearance. The liver is homogeneous indensity. In the right upper lobe on image 47, there is a lobulated soft tissuedensity pulmonary nodule measuring 1.0 x 0.7 cm. There is some adjacent groundglass density. Just lateral tothis nodule is a 4 mm soft tissue nodule. A subtle groundglass density nodule in the left upper lobeon image 46 is identified measuring 0.9 cm in diameter. A subtle nodule in the medial aspect of theright lung image 43 measures 6 mm in size. A 3 mm nodule right lung image 41 is also identified. Degenerative changes are noted in the spine. No bony destructive lesion isidentified. There is abundant colonic stool in the upper abdomen. Impression: 1. Several soft tissue density pulmonary nodules are noted. 2. Abnormal lymph nodes are also noted in the mediastinum. In the absenceof surgical consultation of biopsy, a follow-up CT in 3 months time is recommended to confirmstability of the nodules. Dictated By: Taryn Escamilla M.D. Electronically Signed By: Taryn Escamilla M.D. Date Signed: 02/23/08 [facility] Sd Constantino MD CT ORDERABLES Final Result * POC CREATININE (02/23/2008 12:30 PM CDT) CREATININE POC 0.8 0.7 - 1.2 mg/dL [facility] Capillary blood specimen (specimen) 02/23/2008 12:30 PM CDT 02/23/2008 7:49 PM CDT Sd Constantino MD POINT OF CARE TESTING Final Result [facility] CLIA# [id number] [address] [place] [id number] documented in this encounter Visit Diagnoses Diagnosis Other nonspecific (abnormal) findings on radiological and other examinations of body structure documented in this encounter Care Teams Respiratory Care Program Director Relationship Specialty Start Date End Date Yumi Alexander DO PCP - General Family Practice 10/05/17 documented as of this encounter
--- OUTSIDE RECORDS SUMMARY | 2025-04-01 16:21 | XMS_ITS | Encounter Summary ---
Author Organization [facility] Address [address] [place] [address] Care Team Providers Care Hogshead Mat Inspector Name Role Phone Yumi Alexander DO Primary Care Provider +1- [phone] Encounter Details Date Type Department Care Team (Latest Contact Info) Description 11/06/2005 Outpatient Historical [facility] Medicine [place] [address] [phone] Chantal Ahmadi, 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
--- OUTSIDE RECORDS SUMMARY | 2025-04-01 16:21 | XMS_ITS | Encounter Summary ---
Author Organization [facility] Address [address] [place] [address] Care Team Providers Care Expressive Art Therapist Name Role Phone Yumi Alexander DO Primary Care Provider +1- [phone] Encounter Details Date Type Department Care Team (Latest Contact Info) Description 11/04/2006 Outpatient Historical [facility] Breast [place] Reg[facility] [place] [address] [place] [phone] Nicole Watt MD NO ADDRESS ON FILE Other Screening Mammogram (Primary Dx) Social History Tobacco Use Types Packs/Day Years Used Date Smoking Tobacco: Never Assessed Comments Unknown Sex and Gender Information Value Date Recorded Sex Assigned at Not on file 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
--- OUTSIDE RECORDS SUMMARY | 2025-04-01 16:21 | XMS_ITS | Encounter Summary ---
Author Organization [facility] Address [address] [place] [address] Care Team Providers Care Attendance Clerk Name Role Phone Yumi Alexander DO Primary Care Provider +1- [phone] Encounter Details Date Type Department Care Team (Late st Contact Info) Description 11/30/2007 Outpatient Historical [facility] Regis Crow [place] [address] [place] [phone] Social History Tobacco Use Types Packs/Day Years Used Date Smoking Tobacco: Never Assessed Comments Unknown Sex and Gender Information Value Date Recorded Sex Assigned at Not on file 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
--- OUTSIDE RECORDS SUMMARY | 2025-04-01 16:22 | XMS_ITS | Encounter Summary ---
Author Organization [facility] Address [address] [place] [address] Care Team Providers Care Political Consultant Name Role Phone Yumi Alexander DO Primary Care Provider +1- [phone] Encounter Details Date Type Department Care Team (Latest Contact Info) Description 04/17/2004 Outpatient Historical [facility] Ear, Nose and Throat [address] [place] 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
--- OUTSIDE RECORDS SUMMARY | 2025-04-01 16:22 | XMS_ITS | Encounter Summary ---
Author Organization [facility] Address [address] [place] [address] Care Team Providers Care Transitional Kindergarten Teacher Name Role Phone Yumi Alexander DO Primary Care Provider +1- [phone] Encounter Details Date Type Department Care Team (Latest Contact Info) Description 12/15/2002 Outpatient Historical [address] [phone] Shanda Duong MD [address] [place] [address] SKIN DISORDER NOS (Primary Dx); PALPITATIONS Social History Tobacco Use Types Packs/Day Years Used Date Smoking Tobacco: Never Assessed Comments Unknown Sex and Gender Information Value Date Recorded Sex Assigned at Not on file 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
--- OUTSIDE RECORDS SUMMARY | 2025-04-01 16:22 | XMS_ITS | Encounter Summary ---
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
--- OUTSIDE RECORDS SUMMARY | 2025-04-01 16:22 | XMS_ITS | Encounter Summary ---
Author Organization [facility] Address [address] [place] [address] Care Team Providers Care Metal Shaping Machine Operator Name Role Phone Yumi Alexander DO Primary Care Provider +1- [phone] Encounter Details Date Type Department Care Team (Latest Contact Info) Description 04/14/2004 Outpatient Historical [address] [phone] Yaneli Flores MD [address] [place] [phone] OTALGIA NOS (Primary Dx); HEARING LOSS NOS Social History Tobacco Use Types Packs/Day Years Used Date Smoking Tobacco: Never Assessed Comments Unknown Sex and Gender Information Value Date Recorded Sex Assigned at Not on file 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
--- OUTSIDE RECORDS SUMMARY | 2025-04-01 16:22 | XMS_ITS | Encounter Summary ---
Author Organization [facility] Address [address] [place] [address] Care Team Providers Care Project Geophysicist Name Role Phone Yumi Alexander Primary Care Provider +1- [phone] Encounter Details Date Type Department Care Team (Late st Contact Info) Description 12/04/2009 Ancillary Orders [address] [phone] Yaneli Flores MD [address] [place] [phone] Other Screening Mammogram Social History Tobacco Use Types Packs/Day Years Used Date Smoking Tobacco: Never Alcohol Use Standard Drinks/Week Comments No 0 (1 standard drink = 0.6 oz pur e alcohol) Comments No Sex and Gender Information Value Date Recorded Sex Assigned at Not on file 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 This examination was reviewed with the aid of a computer-aided detection system(CAD). The breast tissue density is average. Scattered benign type nodularity. A few scattered benign type calcifications bilaterally. No significant new findings since the prior mammogram(s). Procedure Note Jovani Pollock MD - 01/15/2010 Bilateral Mammogram Reason for Exam: Screening Comparison: Comparison is made with the prior exam(s) dated 2005+4.30. Findings: Bilateral CC and MLO views were obtained. This examination was reviewed with the aid of a computer-aided detectionsystem(CAD). The breast tissue density is average. Scattered benign type nodularity. A few scattered benign typecalcifications bilaterally. No significant new findings since the prior mammogram(s). us Yaneli Flores MD MAMMO ORDERABLES Final Result documented in this encounter Visit Diagnoses Diagnosis Other screening mammogram Other screening mammogram documented in this encounter Care Teams Project Geophysicist Relationship Specialty Start Date End Date Yumi Alexander DO PCP - General Family Practice 10/05/17 documented as of this encounter
--- OUTSIDE RECORDS SUMMARY | 2025-04-01 16:22 | XMS_ITS | Encounter Summary ---
Author Organization [facility] Address [address] [place] [address] Care Team Providers Care Cook Helper Dessert Name Role Phone Yumi Alexander DO Primary Care Provider +1- [phone] Encounter Details Date Type Department Care Team (Latest Contact Info) Description 01/11/1998 Outpatient Historical [facility] Int [facility] [address] [place] [phone] Maria Qiu MD [address] [place] [address] Routine medical exam (Primary Dx) Social History Tobacco Use Types Packs/Day Years Used Date Smoking Tobacco: Never Assessed Comments Unknown Sex and Gender Information Value Date Recorded Sex Assigned at Not on file 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
--- OUTSIDE RECORDS SUMMARY | 2025-04-01 16:22 | XMS_ITS | Encounter Summary ---
Author Organization [facility] Address [address] [facility] Attn: Epic Prelude ADT [place] [address] Care Team Providers Care Cement Gun Operator Name Role Phone Yumi Alexander DO Primary Care Provider +1- [phone] Encounter Details Date Type Department Care Team (Late st Contact Info) Description 09/20/2001 Outpatient Historical Yaneli Flores MD [address] [place] [address] Social History Tobacco Use Types Packs/Day Years Used Date Smoking Tobacco: Never Assessed Comments Unknown Sex and Gender Information Value Date Recorded Sex Assigned at Not on file 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
--- OUTSIDE RECORDS SUMMARY | 2025-04-01 16:22 | XMS_ITS | Encounter Summary ---
Author Organization [facility] Address [address] [place] [address] Care Team Providers Care Correctional Nurse Name Role Phone Yumi Alexander DO Primary Care Provider +1- [phone] Encounter Details Date Type Department Care Team (Latest Contact Info) Description 01/07/2004 Outpatient Historical [address] [phone] Shanda Duong MD [address] [place] [address] OPEN WOUND OF FINGER (Primary Dx) Social History Tobacco Use Types Packs/Day Years Used Date Smoking Tobacco: Never Assessed Comments Unknown Sex and Gender Information Value Date Recorded Sex Assigned at Not on file 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
--- OUTSIDE RECORDS SUMMARY | 2025-04-01 16:22 | XMS_ITS | Encounter Summary ---
Author Organization [facility] Address [address] [place] [address] Care Team Providers Care Loan Examiner Name Role Phone Yumi Alexander DO Primary Care Provider +1- [phone] Encounter Details Date Type Department Care Team (Latest Contact Info) Description 09/19/2001 Outpatient Historical [facility] Medicine [address] [phone] Yaneli Flores MD [address] [place] [phone] PROLAPSE OF VAGINAL WALL (Primary Dx) Social History Tobacco Use Types Packs/Day Years Used Date Smoking Tobacco: Never Assessed Comments Unknown Sex and Gender Information Value Date Recorded Sex Assigned at Not on file 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
--- OUTSIDE RECORDS SUMMARY | 2025-04-01 16:22 | XMS_ITS | Encounter Summary ---
Author Organization [facility] Address [address] [place] [address] Care Team Providers Care Frame Builder Name Role Phone Yumi Alexander DO Primary Care Provider +1- [phone] Encounter Details Date Type Department Care Team (Latest Contact Info) Description 04/04/2004 Outpatient Historical [address] [phone] Yaneli Flores MD [address] [place] [phone] OTITIS MEDIA NOS (Primary Dx); ACUTE FRONTAL SINUSITIS Social History Tobacco Use Types Packs/Day Years Used Date Smoking Tobacco: Never Assessed Comments Unknown Sex and Gender Information Value Date Recorded Sex Assigned at Not on file 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
--- OUTSIDE RECORDS SUMMARY | 2025-04-01 16:22 | XMS_ITS | Encounter Summary ---
Author Organization [facility] Address [address] [place] [address] Care Team Providers Care Psychological Assistant Name Role Phone Yumi Alexander DO Primary Care Provider +1- [phone] Encounter Details Date Type Department Care Team (Latest Contact Info) Description 12/23/1999 Outpatient Historical [address] [phone] Yaneli Flores MD [address] [place] [phone] Osteoarthrosis, unspecified whether generalized or localized, other specified sites (Primary Dx); Gynecologic examination Social History Tobacco Use Types Packs/Day Years Used Date Smoking Tobacco: Never Assessed Comments Unknown Sex and Gender Information Value Date Recorded Sex Assigned at Not on file 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
--- OUTSIDE RECORDS SUMMARY | 2025-04-01 16:22 | XMS_ITS | Encounter Summary ---
Author Organization [facility] Address [address] [place] [address] Care Team Providers Care Film Sorter Name Role Phone Yumi Alexander DO Primary Care Provider +1- [phone] Encounter Details Date Type Department Care Team (Latest Contact Info) Description 11/05/2004 Outpatient Historical [address] [phone] Sd Constantino MD [address] [place] [phone] SPRAIN NOS (Primary Dx) Social History Tobacco Use Types Packs/Day Years Used Date Smoking Tobacco: Never Assessed Comments Unknown Sex and Gender Information Value Date Recorded Sex Assigned at Not on file 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
--- OUTSIDE RECORDS SUMMARY | 2025-04-01 16:22 | XMS_ITS | Encounter Summary ---
Author Organization [facility] Address [address] [facility] Attn: [place] [address] Care Team Providers Care Thermal Surfacing Machine Operator Name Role Phone Yumi Alexander DO Primary Care Provider +1- [phone] Encounter Details Date Type Department Care Team (Late st Contact Info) Description 04/20/2002 Outpatient Historical Tyler Rey MD [address] [place] [phone] Social History Tobacco Use Types Packs/Day Years Used Date Smoking Tobacco: Never Assessed Comments Unknown Sex and Gender Information Value Date Recorded Sex Assigned at Not on file 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
--- OUTSIDE RECORDS SUMMARY | 2025-04-01 16:22 | XMS_ITS | Encounter Summary ---
Author Organization [facility] Address [address] [place] [address] Care Team Providers Care Director Of Volunteer Services Name Role Phone Yumi Alexander DO Primary Care Provider +1- [phone] Encounter Details Date Type Department Care Team (Latest Contact Info) Description 07/12/2001 Outpatient Historical [facility] Breast [place] [address] [place] [address] [place] [phone] Nicole Watt MD NO ADDRESS ON FILE SCREENING MAMM-MAILG NEOPL-OTHER (Primary Dx) Social History Tobacco Use Types Packs/Day Years Used Date Smoking Tobacco: Never Assessed Comments Unknown Sex and Gender Information Value Date Recorded Sex Assigned at Not on file 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
--- OUTSIDE RECORDS SUMMARY | 2025-04-01 16:22 | XMS_ITS | Encounter Summary ---
Author Organization [facility] Address [address] [place] [address] Care Team Providers Care Base Loader Name Role Phone Yumi Alexander Primary Care Provider +1- [phone] Encounter Details Date Type Department Care Team (Late st Contact Info) Description 11/07/2008 Ancillary Orders [facility] [address] [facility] [address] [address] [place] [phone] Yaneli Flores MD [address] [place] [phone] Screening Mammogram Social History Tobacco Use Types Packs/Day Years Used Date Smoking Tobacco: Never Alcohol Use Standard Drinks/Week Comments No 0 (1 standard drink = 0.6 oz pur e alcohol) Comments No Sex and Gender Information Value Date Recorded Sex Assigned at Not on file 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 Findings: Bilateral CC and MLO views were obtained. This examination was reviewed with the aid of a computer-aided detection system(CAD). The breast tissue density is average. No significant new findings since the prior mammogram(s). Procedure Note Nicole Watt MD - 12/28/2008 Bilateral Mammogram Reason for Exam: Screening Comparison: Comparison is made with the prior exam(s) dated 11.04.06,11.04.05. Findings: Bilateral CC and MLO views were obtained. This examination was reviewed with the aid of a computer-aided detectionsystem(CAD). The breast tissue density is average. No significant new findings since the prior mammogram(s). us Yaneli Flores MD MAMMO ORDERABLES Final Result documented in this encounter Visit Diagnoses Diagnosis Screening mammogram Other screening mammogram Screening mammogram Other screening mammogram documented in this encounter Care Teams Base Loader Relationship Specialty Start Date End Date Yumi Alexander DO PCP - General Family Practice 10/05/17 documented as of this encounter
--- OUTSIDE RECORDS SUMMARY | 2025-04-01 16:22 | XMS_ITS | Encounter Summary ---
Author Organization [facility] Address [address] [place] [address] Care Team Providers Care Tape Librarian Name Role Phone Yumi Alexander DO Primary Care Provider +1- [phone] Encounter Details Date Type Department Care Team (Late st Contact Info) Description 02/09/2001 Outpatient Historical [facility] OvensMaria MD [address] [place] [address] Unspecified urinary incontinence (Primary Dx) Social History Tobacco Use Types Packs/Day Years Used Date Smoking Tobacco: Never Assessed Comments Unknown Sex and Gender Information Value Date Recorded Sex Assigned at Not on file 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
--- OUTSIDE RECORDS SUMMARY | 2025-04-01 16:22 | XMS_ITS | Encounter Summary ---
Author Organization [facility] Address [address] [place] [address] Care Team Providers Care Hair Spinner Name Role Phone Yumi Alexander DO Primary Care Provider +1- [phone] Encounter Details Date Type Department Care Team (Latest Contact Info) Description 04/06/2002 Outpatient Historical [address] [phone] Yaneli Flores MD [address] [place] [phone] HEMORRHOIDS NOS (Primary Dx); PROLAPSE OF VAGINAL WALL Social History Tobacco Use Types Packs/Day Years Used Date Smoking Tobacco: Never Assessed Comments Unknown Sex and Gender Information Value Date Recorded Sex Assigned at Not on file 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
--- OUTSIDE RECORDS SUMMARY | 2025-04-01 16:22 | XMS_ITS | Encounter Summary ---
Author Organization [facility] Address [address] [place] [address] Care Team Providers Care Stippler Name Role Phone Yumi Alexander Primary Care Provider +1- [phone] Encounter Details Date Type Department Care Team (Latest Contact Info) Description 06/29/2008 Outpatient Historical [facility] [address] [place] [phone] Toni Morris, DPM [address] [phone] Pain in Soft Tissues of Limb Social History Tobacco Use Types Packs/Day Years Used Date Smoking Tobacco: Never Alcohol Use Standard Drinks/Week Comments No 0 (1 standard drink = 0.6 oz pur e alcohol) Comments No Sex and Gender Information Value Date Recorded Sex Assigned at Not on file 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:37 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 Gender Identity Not on file Sexual Orientation Not on file documented as of this encounter Plan of Treatment Not on file documented as of this encounter Procedures Procedure Name Priority Date/Time Associated Diagnosis Comments NM BONE SCAN LIMITED AREA Routine 06/29/2008 2:00 PM CDT documented in this encounter Results * NM BONE SCAN LIMITED AREA (06/29/2008 2:00 PM CDT) Anatomical Region Laterality Modality Other 06/29/2008 2:00 PM CDT Narrative 06/29/2008 3:06 PM CDT Radionuclide Bone Imaging, Limited Examination: Radiopharmaceutical: Tc-99m HDP ([id number]) Dose: 19.8 mCi Reason for Consultation: Right heel and midfoot pain: Possible right heel stress fracture High-resolution osseous phase imaging over the distal lower extremities demonstrates focal accumulation of tracer in the right calcaneus tuberosity medial process. There is mild bilateral first metatarsophalangeal joint increased. No focal abnormality is observed in the right midfoot. Impression: Abnormal examination demonstrating findings consistent with plantar fasciitis of the right heel. There are no findings highly suggestive of an occult/stress fracture. Mild arthritic changes are present in both first metatarsal-phalangeal joints. These findings were verbally conveyed to the attending physician. - Dictated By: Lexx Gary M.D. Electronically Signed By: Lexx Gary M.D. Date Signed: 06/29/08 Procedure Note Lexx Gary - 06/29/2008 Radionuclide Bone Imaging, Limited Examination: Radiopharmaceutical: Tc-99m HDP([id number]) Dose: 19.8 mCi Reason for Consultation: Right heel and midfoot pain: Possible right heelstress fracture High-resolution osseous phase imaging over the distal lower extremitiesdemonstrates focal accumulation of tracer in the right calcaneus tuberosity medial process. There is mildbilateral first metatarsophalangeal joint increased. No focal abnormality is observed inthe right midfoot. Impression: Abnormal examination demonstrating findings consistent with plantarfasciitis of the right heel. There are no findings highly suggestive of an occult/stress fracture. Mildarthritic changes are present in both first metatarsal-phalangeal joints. These findings were verbally conveyed to the attending physician. - Dictated By: Lexx Gary M.D. Electronically Signed By: Lexx Gary M.D. Date Signed: 06/29/08 Toni Morris DPM DC ORDERABLES Final Result documented in this encounter Visit Diagnoses Diagnosis Pain in limb documented in this encounter Care Teams Stippler Relationship Specialty Start Date End Date Yumi Alexander DO PCP - General Family Practice 10/05/17 documented as of this encounter
--- OUTSIDE RECORDS SUMMARY | 2025-04-01 16:22 | XMS_ITS | Encounter Summary ---
Author Organization [facility] Address [address] [place] [address] Care Team Providers Care Quill Layer Name Role Phone Yumi Alexander DO Primary Care Provider +1- [phone] Encounter Details Date Type Department Care Team (Latest Contact Info) Description 08/12/2004 Outpatient Historical [facility] Breast [place] [address] [place] [address] [place] [phone] Yaneli Flores MD [address] [place] [phone] SCREENING MAMM-MAILG NEOPL-OTHER (Primary Dx) Social History Tobacco Use Types Packs/Day Years Used Date Smoking Tobacco: Never Assessed Comments Unknown Sex and Gender Information Value Date Recorded Sex Assigned at Not on file 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
--- OUTSIDE RECORDS SUMMARY | 2025-04-01 16:22 | XMS_ITS | Encounter Summary ---
Author Organization [facility] Address [address] [place] [address] Care Team Providers Care Optometric Coordinator Name Role Phone Yumi Alexander DO Primary Care Provider +1- [phone] Encounter Details Date Type Department Care Team (Latest Contact Info) Description 04/28/1999 Outpatient Historical [facility] Breast [place] [address] [place] [address] [place] [phone] Nicole Watt MD NO ADDRESS ON FILE Other screening mammogram (Primary Dx) Social History Tobacco Use Types Packs/Day Years Used Date Smoking Tobacco: Never Assessed Comments Unknown Sex and Gender Information Value Date Recorded Sex Assigned at Not on file 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
--- OUTSIDE RECORDS SUMMARY | 2025-04-01 16:22 | XMS_ITS | Encounter Summary ---
Author Organization [facility] Address [address] [place] [address] Care Team Providers Care Mechanical System Technician Name Role Phone Yumi Alexander DO Primary Care Provider +1- [phone] Encounter Details Date Type Department Care Team (Latest Contact Info) Description 02/09/2001 Outpatient [facility] [address] [place] [phone] Maria Qiu MD [address] [place] [address] Genital prolapse NEC (Primary Dx); Screening for malignant neoplasm of the cervix Social History Tobacco Use Types Packs/Day Years Used Date Smoking Tobacco: Never Assessed Comments Unknown Sex and Gender Information Value Date Recorded Sex Assigned at Not on file 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
--- OUTSIDE RECORDS SUMMARY | 2025-04-01 16:22 | XMS_ITS | Encounter Summary ---
Author Organization [facility] Address [address] [place] [address] Care Team Providers Care Pan Devulcanizer Name Role Phone Yumi Alexander DO Primary Care Provider +1- [phone] Encounter Details Date Type Department Care Team (Latest Contact Info) Description 12/04/2004 Outpatient Historical [facility] Medicine [address] [phone] aYneli Flores MD [address] [place] [phone] DERMATOPHYTOSIS OF NAIL (Primary Dx) Social History Tobacco Use Types Packs/Day Years Used Date Smoking Tobacco: Never Assessed Comments Unknown Sex and Gender Information Value Date Recorded Sex Assigned at Not on file 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
--- OUTSIDE RECORDS SUMMARY | 2025-04-01 16:22 | XMS_ITS | Encounter Summary ---
Author Organization [email or web address] [facility] Address [address] [place] [address] Care Team Providers Care Pulmonologist Intensivist Name Role Phone Yumi Alexander DO Primary Care Provider +1- [phone] Encounter Details Date Type Department Care Team (Latest Contact Info) Description 12/15/2002 Outpatient Historical [employer] [address] [place] [phone] Shanda Duong MD [address] [address] SEBORRHEIC KERATOSIS INFLAMED (Primary Dx) Social History Tobacco Use Types Packs/Day Years Used Date Smoking Tobacco: Never Assessed Comments Unknown Sex and Gender Information Value Date Recorded Sex Assigned at Not on file 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
--- OUTSIDE RECORDS SUMMARY | 2025-04-01 16:22 | XMS_ITS | Encounter Summary ---
Author Organization [facility] Address [address] [place] [address] Care Team Providers Care Gear Grinding Machine Operator Name Role Phone Yumi Alexander DO Primary Care Provider +1- [phone] Encounter Details Date Type Department Care Team (Latest Contact Info) Description 08/08/2002 Outpatient Historical [facility] Breast [place] [address] [place] [address] [place] [phone] Nicole Watt MD NO ADDRESS ON FILE SCREENING MAMM-MAILG NEOPL-OTHER (Primary Dx) Social History Tobacco Use Types Packs/Day Years Used Date Smoking Tobacco: Never Assessed Comments Unknown Sex and Gender Information Value Date Recorded Sex Assigned at Not on file 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:37 AM 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
--- OUTSIDE RECORDS SUMMARY | 2025-04-01 16:22 | XMS_ITS | Encounter Summary ---
Author Organization [facility] Address [address] [place] [address] Care Team Providers Care Taker Down Name Role Phone Yumi Alexander DO Primary Care Provider +1- [phone] Encounter Details Date Type Department Care Team (Latest Contact Info) Description 08/08/2001 Outpatient Historical [address] [phone] Patric Srinivasan MD [address] [place] [address] NONINFEC GASTROENTERIT NEC (Primary Dx); STOMACH FUNCTION DIS NEC; ESOPHAGEAL REFLUX Social History Tobacco Use Types Packs/Day Years Used Date Smoking Tobacco: Never Assessed Comments Unknown Sex and Gender Information Value Date Recorded Sex Assigned at Not on file 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
--- OUTSIDE RECORDS SUMMARY | 2025-04-01 16:22 | XMS_ITS | Encounter Summary ---
Author Organization [facility] Address [address] [place] [address] Care Team Providers Care Blocker Metal Base Name Role Phone Yumi Alexander DO Primary Care Provider +1- [phone] Encounter Details Date Type Department Care Team (Late st Contact Info) Description 04/17/2004 Outpatient Historical [facility] Ear, Nose and Throat 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
--- OUTSIDE RECORDS SUMMARY | 2025-04-01 16:22 | XMS_ITS | Encounter Summary ---
Author Organization [facility] Address [address] [place] [address] Care Team Providers Care Instructor Of Spanish Name Role Phone Yumi Alexander DO Primary Care Provider +1- [phone] Encounter Details Date Type Department Care Team (Latest Contact Info) Description 08/11/2004 Outpatient Historical 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
--- OUTSIDE RECORDS SUMMARY | 2025-04-01 16:22 | XMS_ITS | Encounter Summary ---
Author Organization [facility] Address [address] [place] [address] Care Team Providers Care Accounts Payable Technician Name Role Phone Yumi Alexander DO Primary Care Provider +1- [phone] Encounter Details Date Type Department Care Team (Latest Contact Info) Description 12/31/2006 Outpatient Historical [facility] [address] [phone] Yaneli Flores MD [address] [place] [phone] Unspecified Backache (Primary Dx) Social History Tobacco Use Types Packs/Day Years Used Date Smoking Tobacco: Never Assessed Comments Unknown Sex and Gender Information Value Date Recorded Sex Assigned at Not on file 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
--- OUTSIDE RECORDS SUMMARY | 2025-04-01 16:22 | XMS_ITS | Encounter Summary ---
Author Organization [facility] Address [address] [place] [address] Care Team Providers Care Breakfast Server Name Role Phone Yumi Alexander DO Primary Care Provider +1- [phone] Encounter Details Date Type Department Care Team (Latest Contact Info) Description 06/30/2000 Outpatient Historical [facility] [place] [address] [place] [phone] Nicole Watt MD NO ADDRESS ON FILE Other screening mammogram (Primary Dx) Social History Tobacco Use Types Packs/Day Years Used Date Smoking Tobacco: Never Assessed Comments Unknown Sex and Gender Information Value Date Recorded Sex Assigned at Not on file 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
--- OUTSIDE RECORDS SUMMARY | 2025-04-01 16:22 | XMS_ITS | Encounter Summary ---
Author Organization [facility] Address [address] [place] [address] Care Team Providers Care Internal Controls Manager Name Role Phone Yumi Alexander Primary Care Provider +1- [phone] Encounter Details Date Type Department Care Team (Latest Contact Info) Description 06/19/2008 Outpatient [facility] [address] [place] [phone] Leif Trinidad MD NO ADDRESS ON FILE Other Diseases of Lung, not Elsewhere Classified Social History Tobacco Use Types Packs/Day Years Used Date Smoking Tobacco: Never Alcohol Use Standard Drinks/Week Comments No 0 (1 standard drink = 0.6 oz pur e alcohol) Comments No Sex and Gender Information Value Date Recorded Sex Assigned at Not on file 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 Gender Identity Not on file Sexual Orientation Not on file documented as of this encounter Plan of Treatment Not on file documented as of this encounter Procedures Procedure Name Priority Date/Time Associated Diagnosis Comments CT CHEST W CONTRAST Routine 06/29/2008 8 :53 AM CDT POC CREATININE Routine 06/29/2008 8:48 AM CDT documented in this encounter Results * CT CHEST W CONTRAST (06/29/2008 8:53 AM CDT) Anatomical Region Laterality Modality Chest Other 06/29/2008 8:53 AM CDT Narrative 06/29/2008 9:44 AM CDT Exam: CT Chest with Contrast Date/Time of Exam: Jun 29, 2008 8:53:46 AM History: Nodule 578.89. Axial tomograms obtained through the chest with Optiray 240 intravenous contrast, 75 mL. Comparison to prior chest CT of 02/23/2008. Stable in morphology and size is a 1 cm pulmonary nodule within right upper lung with smaller satellite nodules. Stable tiny pulmonary nodule within posterior margin of left mid lung, image 40. Stable 9 mm nodular ground glass opacity within left upper lung, image 48. No apparent new suspicious appearing pulmonary lesion. Stable are borderline enlarged lymph nodes within right paratracheal space, precarinal space, and right hilar region. No apparent axillary or left hilar lymphadenopathy by size criteria. Visualized central tracheobronchial tree unremarkable. No pleural effusion or pericardial thickening. Limited images of upper abdomen with abundant amount of retained stool. Degenerative change of spine. Impression: Stable are multiple pulmonary lesions/nodules with specific attention to 1 cm pulmonary nodule within right upper lung. Continued followup in 6 months is recommended as clinically warranted. Stable nonspecific borderline mediastinal and right hilar lymphadenopathy. - Dictated By: Amy Morrow M.D. Electronically Signed By: Amy Morrow M.D. Date Signed: 06/29/08 SDM Procedure Note Amy Morrow MD - 06/29/2008 Exam: CT Chest with Contrast Date/Time of Exam: Jun 29, 2008 8:53:46 AM History: Nodule 578.89. Axial tomograms obtained through the chest with Optiray 240 intravenouscontrast, 75 mL. Comparison to prior chest CT of 02/23/2008. Stable in morphology and size is a 1 cm pulmonary nodule within rightupper lung with smaller satellite nodules. Stable tiny pulmonary nodule within posterior margin of left midlung, image 40. Stable 9 mm nodular ground glass opacity within left upper lung, image 48. No apparentnew suspicious appearing pulmonary lesion. Stable are borderline enlarged lymph nodes within rightparatracheal space, precarinal space, and right hilar region. No apparent axillary or left hilarlymphadenopathy by size criteria. Visualized central tracheobronchial tree unremarkable. No pleural effusionor pericardial thickening. Limited images of upper abdomen with abundant amount of retained stool.Degenerative change of spine. Impression: Stable are multiple pulmonary lesions/nodules with specificattention to 1 cm pulmonary nodule within right upper lung. Continued followup in 6 months isrecommended as clinically warranted. Stable nonspecific borderline mediastinal and right hilarlymphadenopathy. - Dictated By: Amy Morrow M.D. Electronically Signed By: Amy Morrow M.D. Date Signed: 06/29/08 SDM us Leif Trinidad MD CT ORDERABLES Final Result * POC CREATININE (06/29/2008 8:48 AM CDT) CREATININE POC 0.8 0.7 - 1.2 mg/dL [facility] Capillary blood specimen (specimen) 06/29/2008 8:48 AM CDT 06/29/2008 4:26 PM CDT us Leif Trinidad MD POINT OF CARE TESTING Final Re sult INTERFACE SYSTEM Refer to clinic/hospital department [facility] CLIA# [id number] [address] [place] [address] documented in this encounter Visit Diagnoses Diagnosis Other diseases of lung, not elsewhere classified documented in this encounter Care Teams Internal Controls Manager Relationship Specialty Start Date End Date Yumi Alexander DO PCP - General Family Practice 10/05/17 documented as of this encounter
--- OUTSIDE RECORDS SUMMARY | 2025-04-01 16:22 | XMS_ITS | Encounter Summary ---
Author Organization [facility] Address [address] [place] [address] Care Team Providers Care Audio Production Instructor Name Role Phone Yumi Alexander DO Primary Care Provider +1- [phone] Encounter Details Date Type Department Care Team (Latest Contact Info) Description 01/05/2005 Outpatient Historical [address] [phone] Sd Constantino MD [address] [place] [phone] ACUTE FRONTAL SINUSITIS (Primary Dx) Social History Tobacco Use Types Packs/Day Years Used Date Smoking Tobacco: Never Assessed Comments Unknown Sex and Gender Information Value Date Recorded Sex Assigned at Not on file 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
--- OUTSIDE RECORDS SUMMARY | 2025-04-01 16:22 | XMS_ITS | Encounter Summary ---
Author Organization [facility] Address [address] [place] [address] Care Team Providers Care Pot Feeder Name Role Phone Yumi Alexander DO Primary Care Provider +1- [phone] Encounter Details Date Type Department Care Team (Latest Contact Info) Description 06/20/2001 Outpatient Historical [address] [phone] Patric Srinivasan MD [address] [place] [address] Acute pharyngitis (Primary Dx) Social History Tobacco Use Types Packs/Day Years Used Date Smoking Tobacco: Never Assessed Comments Unknown Sex and Gender Information Value Date Recorded Sex Assigned at Not on file 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
--- OUTSIDE RECORDS SUMMARY | 2025-04-01 16:22 | XMS_ITS | Encounter Summary ---
Author Organization [facility] Address [address] [place] [address] Care Team Providers Care Managing Attorney Name Role Phone Yumi Alexander DO Primary Care Provider +1- [phone] Encounter Details Date Type Department Care Team (Latest Contact Info) Description 08/08/2002 Outpatient Historical [facility] [address] [place] [address] [place] [phone] Yaneli Flores MD [address] [place] [phone] SCREENING MAMM-MAILG NEOPL-OTHER (Primary Dx) Social History Tobacco Use Types Packs/Day Years Used Date Smoking Tobacco: Never Assessed Comments Unknown Sex and Gender Information Value Date Recorded Sex Assigned at Not on file 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
--- OUTSIDE RECORDS SUMMARY | 2025-04-01 16:22 | XMS_ITS | Encounter Summary ---
Author Organization [facility] Address [address] [place] [address] Care Team Providers Care Carpet Binder Name Role Phone Yumi Alexander DO Primary Care Provider +1- [phone] Encounter Details Date Type Department Care Team (Late st Contact Info) Description 02/09/2003 Outpatient Historical [facility] OBGYN-[address] [address] Jazzy Pugh MD [address] [place] [phone] UTERVAGINAL PROLAPSE NOS (Primary Dx) Social History Tobacco Use Types Packs/Day Years Used Date Smoking Tobacco: Never Assessed Comments Unknown Sex and Gender Information Value Date Recorded Sex Assigned at Not on file 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
--- OUTSIDE RECORDS SUMMARY | 2025-04-01 16:22 | XMS_ITS | Encounter Summary ---
Author Organization [facility] Address [address] [place] [address] Care Team Providers Care Humanities Coordinator Name Role Phone Yumi Alexander DO Primary Care Provider +1- [phone] Encounter Details Date Type Department Care Team (Latest Contact Info) Description 10/22/2003 Outpatient Historical [facility] Medicine [address] [phone] Sd Constantino MD [address] [place] [phone] CELLULITIS OF FACE (Primary Dx) Social History Tobacco Use Types Packs/Day Years Used Date Smoking Tobacco: Never Assessed Comments Unknown Sex and Gender Information Value Date Recorded Sex Assigned at Not on file 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
--- OUTSIDE RECORDS SUMMARY | 2025-04-01 16:22 | XMS_ITS | Encounter Summary ---
Author Organization [facility] Address [address] [place] [address] Care Team Providers Care Certified Welding Inspector Name Role Phone Yumi Alexander DO Primary Care Provider +1- [phone] Encounter Details Date Type Department Care Team (Latest Contact Info) Description 05/05/2000 Outpatient Historical [facility] Josep Shine MD [address] [place] [address] Closed fracture of metacarpal bone(s), site unspecified (Primary Dx) Social History Tobacco Use Types Packs/Day Years Used Date Smoking Tobacco: Never Assessed Comments Unknown Sex and Gender Information Value Date Recorded Sex Assigned at Not on file 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
--- OUTSIDE RECORDS SUMMARY | 2025-04-01 16:22 | XMS_ITS | Encounter Summary ---
Author Organization [facility] Address [address] [place] [address] Care Team Providers Care Billing Collections Specialist Name Role Phone Yumi Alexander DO Primary Care Provider +1- [phone] Encounter Details Date Type Department Care Team (Latest Contact Info) Description 10/03/2001 Outpatient Historical [facility] SAS DEVELOPER ANALYST 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
--- OUTSIDE RECORDS SUMMARY | 2025-04-01 16:22 | XMS_ITS | Encounter Summary ---
Author Organization [facility] Address [address] [facility] Attn: Epic Prelude ADT [place] [address] Care Team Providers Care Special Projects Manager Name Role Phone Yumi Alexander DO Primary Care Provider +1- [phone] Encounter Details Date Type Department Care Team (Late st Contact Info) Description 07/12/2001 Outpatient Historical Yaneli Flores MD [address] [place] [address] Social History Tobacco Use Types Packs/Day Years Used Date Smoking Tobacco: Never Assessed Comments Unknown Sex and Gender Information Value Date Recorded Sex Assigned at Not on file 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
--- OUTSIDE RECORDS SUMMARY | 2025-04-01 16:22 | XMS_ITS | Encounter Summary ---
Author Organization [facility] Address [address] [place] [address] Care Team Providers Care Pilates Coordinator Name Role Phone Yumi Alexander DO Primary Care Provider +1- [phone] Encounter Details Date Type Department Care Team (Latest Contact Info) Description 01/09/1999 Outpatient Historical [address] [phone] Yaneli Flores MD [address] [place] [phone] Gynecologic examination (Primary Dx) Social History Tobacco Use Types Packs/Day Years Used Date Smoking Tobacco: Never Assessed Comments Unknown Sex and Gender Information Value Date Recorded Sex Assigned at Not on file 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
--- OUTSIDE RECORDS SUMMARY | 2025-04-01 16:22 | XMS_ITS | Encounter Summary ---
Author Organization [facility] Address [address] [place] [address] Care Team Providers Care Track Repair Laborer Name Role Phone Yumi Alexander DO Primary Care Provider +1- [phone] Encounter Details Date Type Department Care Team (Latest Contact Info) Description 12/01/2002 Outpatient Historical [address] [phone] Shanda Duong MD [address] [place] [address] SCREENING MAL NEOP-CERVIX (Primary Dx) Social History Tobacco Use Types Packs/Day Years Used Date Smoking Tobacco: Never Assessed Comments Unknown Sex and Gender Information Value Date Recorded Sex Assigned at Not on file 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
--- OUTSIDE RECORDS SUMMARY | 2025-04-01 16:22 | XMS_ITS | Encounter Summary ---
Author Organization [facility] Address [address] [place] [address] Care Team Providers Care Hoisting Engineer Pile Driving Name Role Phone Yumi Alexander DO Primary Care Provider +1- [phone] Encounter Details Date Type Department Care Team (Latest Contact Info) Description 12/22/2002 Outpatient Historical [address] [phone] Yaneli Flores MD [address] [place] [address] ATTEN-SURG DRESSNG/SUTUR (Primary Dx); Inflamed seborr keratos Social History Tobacco Use Types Packs/Day Years Used Date Smoking Tobacco: Never Assessed Comments Unknown Sex and Gender Information Value Date Recorded Sex Assigned at Not on file 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
--- OUTSIDE RECORDS SUMMARY | 2025-04-01 16:22 | XMS_ITS | Encounter Summary ---
Author Organization [facility] Address [address] [place] [address] Care Team Providers Care Insurance Sales Associate Name Role Phone Yumi Alexander DO Primary Care Provider +1- [phone] Encounter Details Date Type Department Care Team (Latest Contact Info) Description 08/12/2004 Outpatient Historical [facility] [place] [address] [place] [phone] Nicole Watt MD NO ADDRESS ON FILE SCREENING MAMM-MAILG NEOPL-OTHER (Primary Dx) Social History Tobacco Use Types Packs/Day Years Used Date Smoking Tobacco: Never Assessed Comments Unknown Sex and Gender Information Value Date Recorded Sex Assigned at Not on file 

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
--- OUTSIDE RECORDS SUMMARY | 2025-04-01 16:22 | XMS_ITS | Encounter Summary ---
Author Organization [facility] Address [address] [place] [address] Care Team Providers Care Hedis Review Nurse Name Role Phone Yumi Alexander DO Primary Care Provider +1- [phone] Encounter Details Date Type Department Care Team (Late st Contact Info) Description 11/06/2008 Ancillary Orders [facility] Procedures [address] 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 Gender Identity Not on file Sexual Orientation Not on file documented as of this encounter Plan of Treatment Scheduled Orders Name Type Priority Associated Diagnoses Orde r Schedule XR FLUORO NEEDLE GUIDANCE Imaging Routine Disorder of Sacrum 1 Occurrences starting 11/06/2008 until 11/06/2009 documented as of this encounter Results * XR FLUORO NEEDLE GUIDANCE (11/06/2008 3:41 PM CDT) us Jairo Rangel MD DIAGNOSTIC IMAGING ORDERABLES Final Result documented in this encounter Visit Diagnoses Diagnosis Disorder of sacrum Disorders of sacrum documented in this encounter Care Teams Hedis Review Nurse Relationship Specialty Start Date End Date Yumi Alexander DO PCP - General Family Practice 10/05/17 documented as of this encounter
--- OUTSIDE RECORDS SUMMARY | 2025-04-01 16:22 | XMS_ITS | Encounter Summary ---
Author Organization [facility] Address [address] [place] [address] Care Team Providers Care Medical Appointment Scheduler Name Role Phone Yumi Alexander DO Primary Care Provider +1- [phone] Encounter Details Date Type Department Care Team (Latest Contact Info) Description 08/10/2003 Outpatient Historical [facility] Breast Joy Regis Crow [place] [address] [place] [phone] Yaneli Flores MD [address] [place] [phone] SCREENING MAMM-MAILG NEOPL-OTHER (Primary Dx) Social History Tobacco Use Types Packs/Day Years Used Date Smoking Tobacco: Never Assessed Comments Unknown Sex and Gender Information Value Date Recorded Sex Assigned at Not on file 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
--- OUTSIDE RECORDS SUMMARY | 2025-04-01 16:22 | XMS_ITS | Encounter Summary ---
Author Organization [facility] Address [address] [place] [address] Care Team Providers Care Saw Edge Fuser Circular Name Role Phone Yumi Alexander DO Primary Care Provider +1- [phone] Encounter Details Date Type Department Care Team (Late st Contact Info) Description 01/03/2007 Outpatient Historical [facility] Imaging Services-[facility] Gregory [address] [place] [phone] Social History Tobacco Use Types Packs/Day Years Used Date Smoking Tobacco: Never Assessed Comments Unknown Sex and Gender Information Value Date Recorded Sex Assigned at Not on file 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
--- OUTSIDE RECORDS SUMMARY | 2025-04-01 16:22 | XMS_ITS | Encounter Summary ---
Author Organization [facility] Address [address] [place] [address] Care Team Providers Care Blind Cleaner Name Role Phone Yumi Alexander DO Primary Care Provider +1- [phone] Encounter Details Date Type Department Care Team (Latest Contact Info) Description 02/09/2001 Outpatient Historical [facility] Imaging Services-Stacy Tristin [place] [address] [place] [phone] Maria Qiu MD [address] [place] [address] Unspecified symptom associated with female genital organs (Primary Dx) Social History Tobacco Use Types Packs/Day Years Used Date Smoking Tobacco: Never Assessed Comments Unknown Sex and Gender Information Value Date Recorded Sex Assigned at Not on file 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:37 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
--- OUTSIDE RECORDS SUMMARY | 2025-04-01 16:22 | XMS_ITS | Encounter Summary ---
Author Organization [facility] Address [address] [place] [address] Care Team Providers Care Gravure Printing Machinist Name Role Phone Yumi Alexander DO Primary Care Provider +1- [phone] Encounter Details Date Type Department Care Team (Latest Contact Info) Description 12/01/2002 Outpatient Historical [address] [phone] Shanda Duong MD [address] [place] [address] PROLAPSE OF VAGINAL WALL (Primary Dx); URGE INCONTINENCE Social History Tobacco Use Types Packs/Day Years Used Date Smoking Tobacco: Never Assessed Comments Unknown Sex and Gender Information Value Date Recorded Sex Assigned at Not on file 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:37 AM APPRAISAL SPECIALIST Gender Identity Not on file Sexual Orientation Not on file documented as of this encounter Plan of Treatment Not on file documented as of this encounter Visit Diagnoses Diagnosis Prolapse of vaginal shane without mention of uterine prolapse- Primary Urge incontinence documented in this encounter Care Teams Gravure Printing Machinist Relationship Specialty Start Date End Date Yumi Alexander DO PCP - General Family Practice 10/05/17 documented as of this encounter
--- OUTSIDE RECORDS SUMMARY | 2025-04-01 16:22 | XMS_ITS | Encounter Summary ---
Author Organization [facility] Address [address] [place] [address] Care Team Providers Care Reversal Print Inspector Name Role Phone Yumi Alexander DO Primary Care Provider +1- [phone] Encounter Details Date Type Department Care Team (Latest Contact Info) Description 05/14/2000 Outpatient Historical [address] [phone] Patric Srinivasan MD [address] [place] [address] Swelling of limb (Primary Dx); Closed fracture of metacarpal bone(s), site unspecified Social History Tobacco Use Types Packs/Day Years Used Date Smoking Tobacco: Never Assessed Comments Unknown Sex and Gender Information Value Date Recorded Sex Assigned at Not on file 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:37 AM PATIENT CARRIER Gender Identity Not on file Sexual Orientation Not on file documented as of this encounter Plan of Treatment Not on file documented as of this encounter Visit Diagnoses Diagnosis Swelling of limb- Primary Closed fracture of metacarpal bone(s), site unspecified documented in this encounter Care Teams Reversal Print Inspector Relationship Specialty Start Date End Date Yumi Alexander DO PCP - General Family Practice 10/05/17 documented as of this encounter
--- OUTSIDE RECORDS SUMMARY | 2025-04-01 16:22 | XMS_ITS | Encounter Summary ---
Author Organization [facility] Address [address] [place] [address] Care Team Providers Care Drier And Evaporator Operator Name Role Phone Yumi Alexander DO Primary Care Provider +1- [phone] Encounter Details Date Type Department Care Team (Latest Contact Info) Description 08/20/2004 Outpatient Historical [address] [phone] Sd Constantino MD [address] [place] [phone] Pain in limb (Primary Dx) Social History Tobacco Use Types Packs/Day Years Used Date Smoking Tobacco: Never Assessed Comments Unknown Sex and Gender Information Value Date Recorded Sex Assigned at Not on file 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:37 AM ENVIRONMENTAL SERVICES MANAGER Gender Identity Not on file Sexual Orientation Not on file documented as of this encounter Plan of Treatment Not on file documented as of this encounter Visit Diagnoses Diagnosis Pain in limb- Primary Pain in soft tissues of limb documented in this encounter Care Teams Drier And Evaporator Operator Relationship Specialty Start Date End Date Yumi Alexander DO PCP - General Family Practice 10/05/17 documented as of this encounter
--- OUTSIDE RECORDS SUMMARY | 2025-04-01 16:22 | XMS_ITS | Encounter Summary ---
Author Organization [facility] Address [address] [place] [address] Care Team Providers Care Reverberatory Furnace Supervisor Name Role Phone Yumi Alexander DO Primary Care Provider +1- [phone] Encounter Details Date Type Department Care Team (Latest Contact Info) Description 10/29/2003 Outpatient Historical [address] [phone] Shanda Duong MD [address] [place] [address] CELLULITIS NOS (Primary Dx); ALLERGY, UNSPECIFIED; ESOPHAGEAL REFLUX; COUGH Social History Tobacco Use Types Packs/Day Years Used Date Smoking Tobacco: Never Assessed Comments Unknown Sex and Gender Information Value Date Recorded Sex Assigned at Not on file 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:37 AM VP CARDIOVASCULAR Gender Identity Not on file Sexual Orientation Not on file documented as of this encounter Plan of Treatment Not on file documented as of this encounter Visit Diagnoses Diagnosis Cellulitis and abscess of unspecified site- Primary Allergy, unspecified not elsewhere classified Esophageal reflux Cough documented in this encounter Care Teams Reverberatory Furnace Supervisor Relationship Specialty Start Date End Date Yumi Alexander DO PCP - General Family Practice 10/05/17 documented as of this encounter
--- OUTSIDE RECORDS SUMMARY | 2025-04-01 16:22 | XMS_ITS | Encounter Summary ---
Author Organization [facility] Address [address] [place] [address] Care Team Providers Care Vulnerability Researcher Name Role Phone Yumi Alexander DO Primary Care Provider +1- [phone] Encounter Details Date Type Department Care Team (Late st Contact Info) Description 08/02/2007 Outpatient Historical [facility] Medicine [address] [phone] Yaneli Flores MD [address] [place] [phone] Social History Tobacco Use Types Packs/Day Years Used Date Smoking Tobacco: Never Assessed Comments Unknown Sex and Gender Information Value Date Recorded Sex Assigned at Not on file 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
--- OUTSIDE RECORDS SUMMARY | 2025-04-01 16:22 | XMS_ITS | Encounter Summary ---
Author Organization [facility] Address [address] [place] [address] Care Team Providers Care Nutrition Consultant Name Role Phone Yumi Alexander DO Primary Care Provider +1- [phone] Encounter Details Date Type Department Care Team (Latest Contact Info) Description 08/29/2003 Outpatient Historical [address] [phone] Sd Constantino MD [address] [place] [phone] ACUTE FRONTAL SINUSITIS (Primary Dx) Social History Tobacco Use Types Packs/Day Years Used Date Smoking Tobacco: Never Assessed Comments Unknown Sex and Gender Information Value Date Recorded Sex Assigned at Not on file 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:37 AM MANAGER OF PHARMACY Gender Identity Not on file Sexual Orientation Not on file documented as of this encounter Plan of Treatment Not on file documented as of this encounter Visit Diagnoses Diagnosis Acute frontal sinusitis- Primary documented in this encounter Care Teams Nutrition Consultant Relationship Specialty Start Date End Date Yumi Alexander DO PCP - General Family Practice 10/05/17 documented as of this encounter
--- OUTSIDE RECORDS SUMMARY | 2025-04-01 16:22 | XMS_ITS | Encounter Summary ---
Author Organization [facility] Address [address] [place] [address] Care Team Providers Care Vault Worker Name Role Phone Yumi Alexander DO Primary Care Provider +1- [phone] Encounter Details Date Type Department Care Team (Latest Contact Info) Description 06/30/2000 Outpatient Historical [facility] Josep Shine MD [address] [place] [address] Closed fracture of metacarpal bone(s), site unspecified (Primary Dx) Social History Tobacco Use Types Packs/Day Years Used Date Smoking Tobacco: Never Assessed Comments Unknown Sex and Gender Information Value Date Recorded Sex Assigned at Not on file 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:37 AM NAPPER TENDER Gender Identity Not on file Sexual Orientation Not on file documented as of this encounter Plan of Treatment Not on file documented as of this encounter Visit Diagnoses Diagnosis Closed fracture of metacarpal bone(s), site unspecified- Primary documented in this encounter Care Teams Vault Worker Relationship Specialty Start Date End Date Yumi Alexander DO PCP - General Family Practice 10/05/17 documented as of this encounter
--- OUTSIDE RECORDS SUMMARY | 2025-04-01 16:22 | XMS_ITS | Encounter Summary ---
Author Organization [facility] Address [address] [place] [address] Care Team Providers Care Bacon Skinner Name Role Phone Yumi Alexander DO Primary Care Provider +1- [phone] Encounter Details Date Type Department Care Team (Latest Contact Info) Description 09/15/2000 Outpatient Historical [facility] Josep Shine MD [address] [place] [address] Closed fracture of shaft of metacarpal bone(s) (Primary Dx) Social History Tobacco Use Types Packs/Day Years Used Date Smoking Tobacco: Never Assessed Comments Unknown Sex and Gender Information Value Date Recorded Sex Assigned at Not on file 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:37 AM COMBINATION WELDER Gender Identity Not on file Sexual Orientation Not on file documented as of this encounter Plan of Treatment Not on file documented as of this encounter Visit Diagnoses Diagnosis Closed fracture of shaft of metacarpal bone(s)- Primary documented in this encounter Care Teams Bacon Skinner Relationship Specialty Start Date End Date Yumi Alexander DO PCP - General Family Practice 10/05/17 documented as of this encounter
--- OUTSIDE RECORDS SUMMARY | 2025-04-01 16:22 | XMS_ITS | Encounter Summary ---
Author Organization [facility] Address [address] [facility] Attn: Epic Prelude ADT [place] [address] Care Team Providers Care Cavity Pump Operator Name Role Phone Yumi Alexander DO Primary Care Provider +1- [phone] Encounter Details Date Type Department Care Team (Late st Contact Info) Description 04/30/2000 Inpatient Historical Cuauhtemoc Martins MD NO ADDRESS ON FILE Social History Tobacco Use Types Packs/Day Years Used Date Smoking Tobacco: Never Assessed Comments Unknown Sex and Gender Information Value Date Recorded Sex Assigned at Not on file 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:37 AM NEUROUROLOGIST Gender Identity Not on file Sexual Orientation Not on file documented as of this encounter Plan of Treatment Not on file documented as of this encounter Visit Diagnoses Not on filedocumented in this encounter Care Teams Cavity Pump Operator Relationship Specialty Start Date End Date Yumi Alexander DO PCP - General Family Practice 10/05/17 documented as of this encounter
--- OUTSIDE RECORDS SUMMARY | 2025-04-01 16:22 | XMS_ITS | Encounter Summary ---
Author Organization [facility] Address [address] [place] [address] Care Team Providers Care Coffee Maker Name Role Phone Yumi Alexander DO Primary Care Provider +1- [phone] Encounter Details Date Type Department Care Team (Late st Contact Info) Description 08/10/2003 Outpatient Historical [facility] Regis Crow [place] [address] [place] [phone] Coby Villa MD NO ADDRESS ON FILE SCREENING MAMM-MAILG NEOPL-OTHER (Primary Dx) Social History Tobacco Use Types Packs/Day Years Used Date Smoking Tobacco: Never Assessed Comments Unknown Sex and Gender Information Value Date Recorded Sex Assigned at Not on file 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:37 AM 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
--- OUTSIDE RECORDS SUMMARY | 2025-04-01 16:22 | XMS_ITS | Encounter Summary ---
Author Organization [facility] Address [address] [facility] Attn: Epic Prelude ADT [place] [address] Care Team Providers Care Medical Communication Specialist Name Role Phone Yumi Alexander DO Primary Care Provider +1- [phone] Encounter Details Date Type Department Care Team (Late st Contact Info) Description 05/10/2000 Outpatient Historical Josep Shine MD [address] [place] [address] Social History Tobacco Use Types Packs/Day Years Used Date Smoking Tobacco: Never Assessed Comments Unknown Sex and Gender Information Value Date Recorded Sex Assigned at Not on file 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:37 AM 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
--- OUTSIDE RECORDS SUMMARY | 2025-04-01 16:22 | XMS_ITS | Encounter Summary ---
Author Organization [facility] Address [address] [place] [address] Care Team Providers Care Cable Weaver Name Role Phone Yumi Alexander DO Primary Care Provider +1- [phone] Encounter Details Date Type Department Care Team (Latest Contact Info) Description 04/10/2004 Outpatient Historical [address] [phone] Yaneli Flores MD [address] [place] [phone] OTITIS MEDIA NOS (Primary Dx) Social History Tobacco Use Types Packs/Day Years Used Date Smoking Tobacco: Never Assessed Comments Unknown Sex and Gender Information Value Date Recorded Sex Assigned at Not on file 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:37 AM REFINERY PIPELINE OPERATOR Gender Identity Not on file Sexual Orientation Not on file documented as of this encounter Plan of Treatment Not on file documented as of this encounter Visit Diagnoses Diagnosis Unspecified otitis media- Primary documented in this encounter Care Teams Cable Weaver Relationship Specialty Start Date End Date Yumi Alexander DO PCP - General Family Practice 10/05/17 documented as of this encounter
--- OUTSIDE RECORDS SUMMARY | 2025-04-01 16:22 | XMS_ITS | Encounter Summary ---
Author Organization [facility] Address [address] [place] [address] Care Team Providers Care Quality Improvement Coordinator Name Role Phone Yumi Alexander DO Primary Care Provider +1- [phone] Encounter Details Date Type Department Care Team (Latest Contact Info) Description 10/17/2003 Outpatient Historical [address] [phone] Shanda Duong MD [address] [place] [address] NAUSEA ALONE (Primary Dx); HEARTBURN; ALLERGY, UNSPECIFIED Social History Tobacco Use Types Packs/Day Years Used Date Smoking Tobacco: Never Assessed Comments Unknown Sex and Gender Information Value Date Recorded Sex Assigned at Not on file 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:37 AM DRY CHAIN WORKER Gender Identity Not on file Sexual Orientation Not on file documented as of this encounter Plan of Treatment Not on file documented as of this encounter Visit Diagnoses Diagnosis Nausea alone- Primary Heartburn Allergy, unspecified not elsewhere classified documented in this encounter Care Teams Quality Improvement Coordinator Relationship Specialty Start Date End Date Yumi Alexander DO PCP - General Family Practice 10/05/17 documented as of this encounter
--- OUTSIDE RECORDS SUMMARY | 2025-04-01 16:22 | XMS_ITS | Encounter Summary ---
Author Organization [facility] Address [address] [place] [address] Care Team Providers Care Director Cost Name Role Phone Yumi Alexander Primary Care Provider +1- [phone] Encounter Details Date Type Department Care Team (Latest Contact Info) Description 05/23/2008 Outpatient Historical [facility] Medicine [address] [phone] Chantal Ahmadi, [facility] [address] [phone] Rash and Other Nonspecific Skin Eruption Social History Tobacco Use Types Packs/Day Years Used Date Smoking Tobacco: Never Alcohol Use Standard Drinks/Week Comments No 0 (1 standard drink = 0.6 oz pur e alcohol) Comments No Sex and Gender Information Value Date Recorded Sex Assigned at Not on file 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:37 AM TUBE SPLICER Gender Identity Not on file Sexual Orientation Not on file documented as of this encounter Plan of Treatment Not on file documented as of this encounter Procedures Procedure Name Priority Date/Time Associated Diagnosis Comments VZV CULTURE Routine 05/23/2008 4:00 PM CDT documented in this encounter Results * VZV CULTURE (05/23/2008 4:00 PM CDT) FLUORSCENT AB STAIN REPORT Fluorescent antibody stain negative for Varicella zoster virus INTERFACE SYSTEM FINAL REPORT Cytopathic effect observed consistent with Herpes simplex virus Confirmed by fluorescent antibody stain Herpes simplex virus, type II INTERFACE SYSTEM Specimen from wound (specimen) 05/23/2008 4:00 PM CDT 05/24/2008 1:57 PM CDT us Chantal Ahmadi ADVANCED MANUFACTURING TECHNICIAN MICROBIOLOGY - GENERAL ORDERA BLES Final Result INTERFACE SYSTEM Refer to clinic/hospital department documented in this encounter Visit Diagnoses Diagnosis Rash and other nonspecific skin eruption documented in this encounter Care Teams Director Cost Relationship Specialty Start Date End Date Yumi Alexander DO PCP - General Family Practice 10/05/17 documented as of this encounter
--- OUTSIDE RECORDS SUMMARY | 2025-04-01 16:22 | XMS_ITS | Encounter Summary ---
Author Organization [facility] Address [address] [place] [address] Care Team Providers Care System Analyst Name Role Phone Yumi Alexander DO Primary Care Provider +1- [phone] Encounter Details Date Type Department Care Team (Latest Contact Info) Description 04/20/2002 Outpatient [facility] [place] [address] [facility] [address] [place] [address] Tyler Rey MD [address] [place] [address] MELENA, BLOOD IN STOOL (Primary Dx); INT HEMORRHOID W/O COMPL Social History Tobacco Use Types Packs/Day Years Used Date Smoking Tobacco: Never Assessed Comments Unknown Sex and Gender Information Value Date Recorded Sex Assigned at Not on file 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:37 AM LAYOUT FORMER Gender Identity Not on file Sexual Orientation Not on file documented as of this encounter Plan of Treatment Not on file documented as of this encounter Visit Diagnoses Diagnosis Blood in stool- Primary Internal hemorrhoids without mention of complication documented in this encounter Care Teams System Analyst Relationship Specialty Start Date End Date Yumi Alexander DO PCP - General Family Practice 10/05/17 documented as of this encounter
--- OUTSIDE RECORDS SUMMARY | 2025-04-01 16:22 | XMS_ITS | Encounter Summary ---
Author Organization [facility] Address [address] [place] [address] Care Team Providers Care Cable Assembler Name Role Phone Yumi Alexander DO Primary Care Provider +1- [phone] Encounter Details Date Type Department Care Team (Latest Contact Info) Description 05/07/2000 Outpatient Historical [address] [phone] Yaneli Flores MD [address] [place] [address] Vomiting alone (Primary Dx); Observation following other accident Social History Tobacco Use Types Packs/Day Years Used Date Smoking Tobacco: Never Assessed Comments Unknown Sex and Gender Information Value Date Recorded Sex Assigned at Not on file 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:37 AM 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
--- OUTSIDE RECORDS SUMMARY | 2025-04-01 16:22 | XMS_ITS | Encounter Summary ---
Author Organization [facility] Address [address] [facility] Attn: Epic Prelude ADT [place] [address] Care Team Providers Care Addresser Name Role Phone Yumi Alexander DO Primary Care Provider +1- [phone] Encounter Details Date Type Department Care Team (Late st Contact Info) Description 05/05/2000 Outpatient Historical Josep Shine MD [address] [place] [address] Social History Tobacco Use Types Packs/Day Years Used Date Smoking Tobacco: Never Assessed Comments Unknown Sex and Gender Information Value Date Recorded Sex Assigned at Not on file 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:37 AM POULTRY BREEDER Gender Identity Not on file Sexual Orientation Not on file documented as of this encounter Plan of Treatment Not on file documented as of this encounter Visit Diagnoses Not on filedocumented in this encounter Care Teams Addresser Relationship Specialty Start Date End Date Yumi Alexander DO PCP - General Family Practice 10/05/17 documented as of this encounter
--- OUTSIDE RECORDS SUMMARY | 2025-04-01 16:22 | XMS_ITS | Encounter Summary ---
Author Organization [facility] Address [address] [place] [address] Care Team Providers Care Ground Nuclear Weapons Assembly Officer Name Role Phone Yumi Alexander DO Primary Care Provider +1- [phone] Encounter Details Date Type Department Care Team (Latest Contact Info) Description 03/06/2002 Outpatient Historical [facility] Medicine [address] [phone] Sd Constantino MD [address] [place] [phone] OPEN WOUND KNEE/LEG/ANKLE (Primary Dx) Social History Tobacco Use Types Packs/Day Years Used Date Smoking Tobacco: Never Assessed Comments Unknown Sex and Gender Information Value Date Recorded Sex Assigned at Not on file 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:37 AM ENTERER Gender Identity Not on file Sexual Orientation Not on file documented as of this encounter Plan of Treatment Not on file documented as of this encounter Visit Diagnoses Diagnosis Open wound of knee, leg (except thigh), and ankle, without mention of complication- Primary documented in this encounter Care Teams Ground Nuclear Weapons Assembly Officer Relationship Specialty Start Date End Date Yumi Alexander DO PCP - General Family Practice 10/05/17 documented as of this encounter
--- OUTSIDE RECORDS SUMMARY | 2025-04-01 16:22 | XMS_ITS | Encounter Summary ---
Author Organization [facility] Address [address] [place] [address] Care Team Providers Care Celebrity Manager Name Role Phone Yumi Alexander DO Primary Care Provider +1- [phone] Encounter Details Date Type Department Care Team (Latest Contact Info) Description 03/08/2002 Outpatient Historical [facility] Medicine [address] [phone] Sd Constantino MD [address] [place] [phone] OPEN WOUND KNEE/LEG/ANKLE (Primary Dx) Social History Tobacco Use Types Packs/Day Years Used Date Smoking Tobacco: Never Assessed Comments Unknown Sex and Gender Information Value Date Recorded Sex Assigned at Not on file 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:37 AM BAKER HEAD Gender Identity Not on file Sexual Orientation Not on file documented as of this encounter Plan of Treatment Not on file documented as of this encounter Visit Diagnoses Diagnosis Open wound of knee, leg (except thigh), and ankle, without mention of complication- Primary documented in this encounter Care Teams Celebrity Manager Relationship Specialty Start Date End Date Yumi Alexander DO PCP - General Family Practice 10/05/17 documented as of this encounter
--- OUTSIDE RECORDS SUMMARY | 2025-04-01 16:22 | XMS_ITS | Encounter Summary ---
Author Organization [facility] Address [address] [place] [address] Care Team Providers Care Unix Engineer Name Role Phone Yumi Alexander DO Primary Care Provider +1- [phone] Encounter Details Date Type Department Care Team (Latest Contact Info) Description 03/13/2002 Outpatient Historical [address] [phone] Sd Constantino MD [address] [place] [phone] CELLULITIS OF LEG (Primary Dx) Social History Tobacco Use Types Packs/Day Years Used Date Smoking Tobacco: Never Assessed Comments Unknown Sex and Gender Information Value Date Recorded Sex Assigned at Not on file 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
--- OUTSIDE RECORDS SUMMARY | 2025-04-01 16:22 | XMS_ITS | Encounter Summary ---
Author Organization [facility] Address [address] [place] [address] Care Team Providers Care Lye Machine Operator Name Role Phone Yumi Alexander DO Primary Care Provider +1- [phone] Encounter Details Date Type Department Care Team (Latest Contact Info) Description 04/25/1998 Outpatient Historical [facility] [place] [address] [place] [address] [place] [phone] Nicole Watt MD NO ADDRESS ON FILE Other screening mammogram (Primary Dx) Social History Tobacco Use Types Packs/Day Years Used Date Smoking Tobacco: Never Assessed Comments Unknown Sex and Gender Information Value Date Recorded Sex Assigned at Not on file 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
--- OUTSIDE RECORDS SUMMARY | 2025-04-01 16:23 | XMS_ITS | Encounter Summary ---
Author Organization [facility] Address [address] [place] [address] Care Team Providers Care Fairing Man Name Role Phone Yumi Alexander DO Primary Care Provider +1- [phone] Encounter Details Date Type Department Care Team (Late st Contact Info) Description 01/29/2011 Ancillary Orders [facility] [address] [place] [phone] Sd Constantino MD [address], [place] [phone] Other screening mammogram Social History Tobacco Use Types Packs/Day Years Used Date Smoking Tobacco: Never Alcohol Use Standard Drinks/Week Comments No 0 (1 standard drink = 0.6 oz pur e alcohol) Comments No Sex and Gender Information Value Date Recorded Sex Assigned at Not on file 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
--- OUTSIDE RECORDS SUMMARY | 2025-04-01 16:23 | XMS_ITS | Encounter Summary ---
Author Organization [facility] Address [address] [place] [address] Care Team Providers Care Candle Cutter Name Role Phone Yumi Alexander DO Primary Care Provider +1- [phone] Encounter Details Date Type Department Care Team (Latest Contact Info) Description 12/25/2010 Ancillary Orders [facility] Pre-Registration [place] CALL TO MAKE APPOINTMENT ONLY [address] [place] [phone] Chantal Ahmadi, RETORT LOAD EXPEDITER [address] [place] [phone] Other screening mammogram Social History Tobacco Use Types Packs/Day Years Used Date Smoking Tobacco: Never Alcohol Use Standard Drinks/Week Comments No 0 (1 standard drink = 0.6 oz pur e alcohol) Comments No Sex and Gender Information Value Date Recorded Sex Assigned at Not on file 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
--- OUTSIDE RECORDS SUMMARY | 2025-04-01 16:23 | XMS_ITS | Clinical Summary ---
Author Organization [facility] Address [address] [place] [address] Care Team Providers Care Aboriginal Education Worker Coordinator Name Role Phone Yumi Alexander Primary Care Provider +1- [phone] Allergies No known active allergies Medications Cholecalciferol , Vitamin D3, (VITAMIN D-3) 2,000 unit Oral Cap Take 2,000 mg by mouth daily. Active LORATADINE (CLARITIN ORAL) Take 1 Tablet by mouth 1 time daily as needed . Active MULTIVITAMINS WITH FLUORIDE (MULTI-VITAMIN ORAL) Take 1 Tab by mouth daily. otc Active ibuprofen (MOTRIN) 200 mg tablet Take 200 mg by mouth every 6 hours as needed. Active valACYclovir (VALTREX) 500 mg tabletIndicatio ns:Herpes simplex Take 1 Tablet (500 mg) by mouth 2 times daily Take bid for 3 days then continue with once daily therapy.. 33 Tablet PRN 6 Active OTHERIndication s:PLEASE SEND BOTH BOTTLES AT THE SAME TIME Prednisolone 1%, Gatifloxacin 0.5%, Ketorolac 0.5%. One drop 3 times a day in the operative eye for 24 days.. 3.5 mL 1 8 Active prednisoLONE acetate (PRED FORTE) 1 % suspensionIndic ations:Pseudoph flaquita of left eye Administer 1 Drop in left eye 3 times daily 1 drop in operative eye 3 times daily. 10 mL 8 Active naproxen (NAPROSYN) 250 mg tablet Take 250 mg by mouth 2 times daily with meals. Active magnesium oxide (MAG-OX) 400 mg tablet Take 400 mg by mouth daily. Active calcium as carbonate (CALCI-CHEW) 1,250 mg (500 mg elemental) Tablet, Chewable Take 1 Tablet by mouth daily. Active VIT C/E/ZN/COPPR/RADHA TEIN/ZEAXAN (PRESERVISION AREDS 2 ORAL) Take by mouth. A ctive GLUCOSAMINE/MSM /CHONDRT/C/HYAL (GLUCOSAMINE-CH ONDROITIN-MSM ORAL) Take by mouth. 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 10/15/2017 PVD (posterior vitreous detachment), both eyes 0 10/05/2017 Age-related macular degeneration, dry 10/05/2017 Combined forms of age-related cataract of right eye 10/05/2017 Dermatochalasis of both upper eyelids 10/05/2017 Colon cancer screening 02/15/2014 Mid back pain 05/11/2013 Myofascial pain 05/11/2013 Thoracic kyphosis 05/11/2013 Herpes simplex 11/08/2012 Peripheral edema 04/19/2012 Right leg pain 04/19/2012 Right ankle pain 04/19/2012 Noncompliance with treatment 02/19/2010 Alternative medicine 02/19/2010 Lung nodules 01/14/2010 Compression fracture of thoracic vertebra 2008 Pain in back 02/20/2009 Osteoporosis, post-menopausal 11/27/2008 Overview (11/27/2008): -4.7 Resolved Problems Problem Noted Date Diagnosed Date Resolved Date Senile cataract, unspecified 10/25/2013 11/08/2017 Fungal infection of nail 08/06/2009 Other bursitis disorders 05/04/2008 Plantar fasciitis 05/04/2008 05/18/2008 Heel spur 05/04/2008 05/18/2008 Immunizations Immunization Administration Dates Next Due (ADACEL/BOOSTRIX)(10 YR UP) TDAP VACCINE, 0.5ML, IM 01/26/2012 (TDVAX)(7 YRS UP) TETANUS AN D DIPHTHERIA TOXOIDS, ADSORBED (2 LF OF TETANUS TOXOID AND 2 LF OF DIPHTHERIA TOXOID), 0.5ML (PF), IM 03/06/2002 Varicella Zoster Immune Globulin IM Patient Supp lied 01/26/2012 Family History Medical History Relation Name Comments Cataract Brother Heart Disease Father Diabetes Mother Cataract Sister Breast Cancer Neg Hx Colon Cancer Neg Hx Ovarian Cancer Neg Hx Relation Name Status Comments Brother Father Mother Sister Social History Tobacco Use Types Packs/Day Years Used Date Smoking Tobacco: Never Smokeless Tobacco: Never Alcohol Use Standard Drinks/Week Comments No 0 (1 standard drink = 0.6 oz pur e alcohol) Comments No Sex and Gender Information Value Date Recorded Sex Assigned at Not on file 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 Gender Identity Not on file Sexual Orientation Not on file Occupation Industry Job Start Date Job End Date Not on file Not on file Not on file Not on file Last Filed Vital Signs Vital Sign Reading Time Taken Comments Blood Pressure 100/73 11/22/2017 12:51 PM CDT Pulse 81 11/22/2017 12:51 PM CDT Temperature 36.4 C (97.5 F) 11/22/2017 11:11 AM CDT Respiratory Rate 16 11/22/2017 11:11 AM CDT Oxygen Saturation 96% 11/22/2017 11:11 AM CDT Inhaled Oxygen Concentration - - Weight 49.9 kg (110 lb) 11/22/2017 12:51 PM CDT Height 149.9 cm (4' 11 ) 11/22/2017 12:51 PM CDT Body Mass Index 22.22 11/22/2017 12:51 PM CDT Plan of Treatment Health Maintenance Due Date Last Done Comments PNEUMOCOCCAL VACCINE 50+ YEA RS (1 of 1 - PCV) 12/04/1985 ZOSTER VACCINE (1 of 2) 12/04/1985 RSV VACCINE (60+ or ) (1 - 1-dose 75+ series) 12/04/2010 OSTEOPOROSIS SCREENING 06/28/2017 2 (Declined), 11/06/2008 DTAP/TDAP/TD VACCINES (2 - T d or Tdap) 01/25/2022 01/26/2012, 03/06/2002 INFLUENZA VACCINE (#1) 2025 Medical Devices Implanted Type Area Auto Mechanic Device Identifier Shelf Expiration Date Model / Serial / Lot Lens Io Tecnis 1pc 26.5 [id number] - [id number] Implanted:Qty: 1 on 11/08/2017 by Segun Boudreaux DO at [facility] Left: Eye [employer] 06/13/2021 [id number] / [id number] / N/A Lens Io Tecnis 1pc 25.5 [id number] - [id number] Implanted:Qty: 1 on 11/22/2017 by Segun Boudreaux DO at [facility] Right: Eye [employer] 05/12/2021 [id number] / [id number] / Procedures Procedure Name Priority Date/Time Associated Diagnosis Comments XR DEXA BONE DENSITY AXIAL 1 OR MORE SITES Routine 11/06/2008 12:53 PM CDT Compression Fracture of Thoracic Vertebra (CMS/HCC) from Last 3 Months or Most Recently Relevant to Health Maintenance Results * XR DEXA BONE DENSITY AXIAL 1 OR MORE SITES (11/06/2008 12:53 PM CDT) Anatomical Region Laterality Modality Nuclear Medicine 11/06/2008 12:3 8 PM CDT Impressions 11/06/2008 5:26 PM CDT Impression: 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 This puts her at significant increased risk for fragility fracture in both regions. The degree of bone mineral loss in both the lumbar spine and left hip represents a significant acceleration of bone mineral loss for the patient's age. This could be secondary to metabolic bone disease. Further diagnostic and therapeutic measures should be undertaken in an effort to prevent further bone mineral loss. Consideration should also be given go repeating this examination in approximately two years. jaw - uploaded from [employer] - Narrative 11/06/2008 5:26 PM CDT DEXA Evaluation of the Lumbar Spine and Left Proximal Femur: Reason for Consultation: Status post menopause. Evaluation of bone mineral density. The following absorptiometry data were obtained. The overall technical quality of the study is good. Serial measurement number one. L1 through L4 BMD (g/cm2): 0.616 Young adult %: 52 Adult T-score: -4.7 Left Femoral Neck BMD (g/cm2): 0.545 Young adult %: 53 Adult T-score: -3.5 Left Total Hip BMD (g/cm2): 0.613 Young adult %: 61 Adult T-score: -3.1 The patient demonstrates osteoporosis of the trabecular bone of her lumbar spine. She has at least 47% less mineral than the mean projected for a young normal, ages 20 to 40. She demonstrates osteoporosis of the neck and total hip regions of the left hip. Procedure Note Paulino Guzman MD - 11/06/2008 DEXA Evaluation of the Lumbar Spine and Left Proximal Femur: Reason for Consultation: Status post menopause. Evaluation of bonemineral density. The following absorptiometry data were obtained. The overall technicalquality of the study is good. Serial measurement number one. L1 through L4 BMD (g/cm2): 0.616 Young adult %: 52 Adult T-score: -4.7 Left Femoral Neck BMD (g/cm2): 0.545 Young adult %: 53 Adult T-score: -3.5 Left Total Hip BMD (g/cm2): 0.613 Young adult %: 61 Adult T-score: -3.1 The patient demonstrates osteoporosis of the trabecular bone of her lumbarspine. She has at least 47% less mineral than the mean projected for a young normal, ages 20 to 40.She demonstrates osteoporosis of the neck and total hip regions of the left hip. IMPRESSION Impression: The patient demonstrates osteoporosis of both the lumbar spine and lefthip. This puts her at significant increased risk for fragility fracture in both regions. The degree of bonemineral loss in both the lumbar spine and left hip represents a significant acceleration of bonemineral loss for the patient's age. This could be secondary to metabolic bone disease. Further diagnosticand therapeutic measures should be undertaken in an effort to prevent further bone mineral loss.Consideration should also be given go repeating this examination in approximately two years. jaw - uploaded from [employer] - us Reji Woody MD DIAGNOSTIC IMAGING ORDERABLES Fi nal Result from Last 3 Months or Most Recently Relevant to Health Maintenance Advance Directives For more information, please contact: [phone] Documents on File Type Date Recorded Patient Trust Administrator Expl anation Advance Directive POA 07/19/2014 11:06 AM Advance Directive POA * Full Code (Latest Code Status on File) Date Activated Date Inactivated Comments 11/22/2017 9:51 AM 11/22/2017 1:28 PM * Full Code Date Activated Date Inactivated Comments 11/08/2017 9:22 AM 11/08/2017 12:42 PM * Full Code Date Activated Date Inactivated Comments 02/15/2014 11:07 AM 02/15/2014 1:44 PM * Full Code Date Activated Date Inactivated Comments 02/15/2014 10:08 AM 02/15/2014 11:07 AM Care Teams Aboriginal Education Worker Coordinator Relationship Specialty Start Date End Date Yumi Alexander DO PCP - General Family Practice 10/05/17
--- OUTSIDE RECORDS SUMMARY | 2025-04-01 16:23 | XMS_ITS | Encounter Summary ---
Author Organization [facility] Address [address] [place] [address] Care Team Providers Care Feltmaker Name Role Phone Yumi Alexander DO Primary Care Provider +1- [phone] Encounter Details Date Type Department Care Team (Latest Contact Info) Description 08/04/2005 Outpatient Historical [address] [phone] Yaneli Flores MD [address] [place] [phone] GENITAL WARTS NOS (Primary Dx) Social History Tobacco Use Types Packs/Day Years Used Date Smoking Tobacco: Never Assessed Comments Unknown Sex and Gender Information Value Date Recorded Sex Assigned at Not on file 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
--- OUTSIDE RECORDS SUMMARY | 2025-04-01 16:23 | XMS_ITS | Clinical Summary ---
Author Organization [email or web address] Address [address] [facility] Attn: [place] [address] Care Team Providers Care Antique Clock Repairer Name Role Phone BenjaminYumi Primary Care Provider +1- [phone] Allergies No known active allergies Medications prednisoLONE acetate (PRED FORTE) 1 % suspension Administer 1 Drop in both eyes 3 times daily. 5 mL 1 Active albuterol sulfate 90 mcg/Actuation inhaler 1 PUFF(S) FOUR TIMES A DAY NEEDED FOR SHORTNESS OF BREATH/WHEEZING 1 Active calcium as carbonate (CALCI-CHEW) 1,250 mg (500 mg elemental) Tablet, Chewable Take 1 Tablet by mouth daily. Active Cholecalciferol , Vitamin D3, 50 mcg (2,000 unit) Capsule Take 2,000 mg by mouth daily. Active ibuprofen (MOTRIN) 200 mg tablet Take 200 mg by mouth every 6 hours as needed. Active magnesium oxide (MAG-OX) 400 mg (241.3 mg magnesium) tablet Take 400 mg by mouth daily. Active naproxen (NAPROSYN) 250 mg tablet Take 250 mg by mouth 2 times daily with meals. Active magnesium oxide (MAG-OX) 400 mg (241.3 mg magnesium) tablet Take 400 mg by mouth daily. 8 Active calcium as carbonate (CALCI-CHEW) 1,250 mg (500 mg elemental) Tablet, Chewable Take 1 Tablet by mouth daily. 8 Active vit C/E/Zn/coppr/wei tein/zeaxan (PRESERVISION AREDS 2 ORAL) Take by mouth. 8 Active prednisoLONE acetate (PRED FORTE) 1 % suspensionIndic ations:Pseudoph flaquita of left eye Administer 1 Drop in left eye 3 times daily 1 drop in operative eye 3 times daily. 10 mL 0 8 Active glucosamine/msm /chondrt/C/hyal (GLUCOSAMINE-CH ONDROITIN-MSM ORAL) Take by mouth. 8 Active OTHERIndication s:Combined forms of age-related cataract of both eyes Prednisolone 1%, Gatifloxacin 0.5%, Ketorolac 0.5%. One drop 3 times a day in the operative eye for 24 days.. 3.5 mL 1 8 Active naproxen (NAPROSYN) 250 mg tablet Take 250 mg by mouth 2 times daily with meals. 8 Active valACYclovir (VALTREX) 500 mg tabletIndicatio ns:Herpes simplex Take 1 Tablet (500 mg) by mouth 2 times daily Take bid for 3 days then continue with once daily therapy.. 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 10/15/2017 PVD (posterior vitreous detachment), both eyes 0 10/05/2017 Combined forms of age-related cataract of right eye 10/05/2017 Age-related macular degeneration, dry 10/05/2017 Dermatochalasis of both upper eyelids 10/05/2017 Colon cancer screening 02/15/2014 Mid back pain 05/11/2013 Myofascial pain 05/11/2013 Thoracic kyphosis 05/11/2013 Herpes simplex 11/08/2012 Right leg pain 04/19/2012 Peripheral edema 04/19/2012 Right ankle pain 04/19/2012 Noncompliance with treatment 02/19/2010 Alternative medicine 02/19/2010 Lung nodules 01/14/2010 Compression fracture of thoracic vertebra 2008 Pain in back 02/20/2009 Osteoporosis, post-menopausal 11/27/2008 Overview (12/26/2020): -4.7 Resolved Problems Problem Noted Date Diagnosed Date Resolved Date Senile cataract, unspecified 10/25/2013 11/08/2017 Fungal infection of nail 08/06/2009 Other bursitis disorders 05/04/2008 Heel spur 05/04/2008 05/18/2008 Plantar fasciitis 05/04/2008 05/18/2008 Immunizations Immunization Administration Dates Next Due (ADACEL/BOOSTRIX)(10 YR UP) TDAP VACCINE, 0.5ML, IM 01/26/2012 (PFIZER)(12 YR UP) COVID-19 VACCINE - EMERGENCY USE AUTHORIZATION, MRNA, [id number](PF) 30 MCG/0.3 ML IM SUSP 06/12/2021 (TDVAX)(7 YRS UP) TETANUS AN D DIPHTHERIA [...] = 0.6 oz pur e alcohol) Comments Unknown Sex and Gender Information Value Date Recorded Sex Assigned at Not on file Legal Sex Female 8:55 AM PAPER PRODUCTS PRINTER Gender Identity Not on file Sexual Orientation Not on file Last Filed Vital Signs Vital Sign Reading Time Taken Comments Blood Pressure 100/73 11/22/2017 12:51 PM CDT Pulse 81 11/22/2017 12:51 PM CDT Temperature 36.4 C (97.5 F) 11/22/2017 11:11 AM CDT Respiratory Rate 16 11/22/2017 11:11 AM CDT Oxygen Saturation - - Inhaled Oxygen Concentration - - Weight 49.9 [...] - 1-dose 75+ series) 12/04/2010 OSTEOPOROSIS SCREENING 11/06/2013 11/06/2008, 2008 DTAP/TDAP/TD VACCINES (2 - Td or Tdap) 01/25/2022, 03/06/2002 COVID-19 Vaccine (2 - season) 2024 INFLUENZA VACCINE (#1) 2025 Medical Devices Implanted Type Area Cnc Mill Programmer Device Identifier Shelf Expiration Date Model / Serial / Lot Lens Io Tecnis 1pc 26.5 [id number] - [id number] Implanted:Qty: 1 on 11/08/2017 by Segun Boudreaux DO Eye Left: Eye [employer] 06/13/2021 [id number] / [id number] / N/A Lens Io Tecnis 1pc 25.5 [id number] - [id number] Implanted:Qty: 1 on 11/22/2017 by Segun Boudreaux DO Eye Right: Eye [employer] 05/12/2021 [id number] / [id number] / Procedures Procedure Name Priority Date/Time Associated Diagnosis Comments XR DEXA BONE DENSITY AXIAL 1 OR MORE SITES Routine 11/06/2008 12:53 PM CDT Closed fracture of dorsal (thoracic) vertebra (CMS/HCC) from Last 3 Months or Most Recently Relevant to Health Maintenance Results * XR DEXA BONE DENSITY AXIAL 1 OR MORE SITES (11/06/2008 12:53 PM CDT) Anatomical Region Laterality Modality Other Impressions 11/06/2008 5:26 PM CDT Impression: The [...] approximately two years. jaw - uploaded from [facility] - Narrative 11/06/2008 5:26 PM CDT DEXA [...] hip. Procedure Note Paulino Guzman MD - 10/27/2022 DEXA Evaluation of the Lumbar Spine and [...] approximately two years. jaw - uploaded from [facility] - us Reji Woody MD DIAGNOSTIC IMAGING ORDERABLES Fi nal Result from Last 3 Months or Most Recently Relevant to Health Maintenance Insurance [facility] MEDICARE Care Teams Antique Clock Repairer Relationship Specialty Start Date End Date Yumi Alexander DO PCP - General Family Practice 10/05/17
--- OUTSIDE RECORDS SUMMARY | 2025-04-01 16:23 | XMS_ITS | Encounter Summary ---
Author Organization [facility] Address [address] [place] [address] Care Team Providers Care Hunting Sales Associate Name Role Phone Yumi Alexander DO Primary Care Provider +1- [phone] Encounter Details Date Type Department Care Team (Latest Contact Info) Description 05/20/2005 Outpatient Historical [address] [phone] Sd Constantino MD [address] [place] [phone] CONTUSION OF TOE (Primary Dx) Social History Tobacco Use Types Packs/Day Years Used Date Smoking Tobacco: Never Assessed Comments Unknown Sex and Gender Information Value Date Recorded Sex Assigned at Not on file 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:37 AM CONGRESSIONAL ASSISTANT Gender Identity Not on file Sexual Orientation Not on file documented as of this encounter Plan of Treatment Not on file documented as of this encounter Visit Diagnoses Diagnosis Contusion of toe- Primary documented in this encounter Care Teams Hunting Sales Associate Relationship Specialty Start Date End Date Yumi Alexander DO PCP - General Family Practice 10/05/17 documented as of this encounter
--- OUTSIDE RECORDS SUMMARY | 2025-04-01 16:23 | XMS_ITS | Encounter Summary ---
Author Organization [facility] Address [address] [place] [address] Care Team Providers Care Faucet Polisher Name Role Phone Yumi Alexander DO Primary Care Provider +1- [phone] Encounter Details Date Type Department Care Team (Latest Contact Info) Description 03/18/2005 Outpatient Historical [facility]- [facility] [place] [address] [place] [phone] Joey Still MD NO ADDRESS ON FILE DISEASES OF NAIL NEC (Primary Dx); Inflamed seborr keratos Social History Tobacco Use Types Packs/Day Years Used Date Smoking Tobacco: Never Assessed Comments Unknown Sex and Gender Information Value Date Recorded Sex Assigned at Not on file 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
--- OUTSIDE RECORDS SUMMARY | 2025-04-01 16:23 | XMS_ITS | Encounter Summary ---
Author Organization [facility] Address [address] [place] [address] Care Team Providers Care Manager Of Human Resources Name Role Phone Yumi Alexander DO Primary Care Provider +1- [phone] Encounter Details Date Type Department Care Team (Latest Contact Info) Description 05/27/[address] [facility] Podiatry-[facility] [place] [address] [place] [address] Toni Morris, DPM [address] [place] [address] CONTUSION OF TOE (Primary Dx); FX PHALANX, FOOT-CLOSED Social History Tobacco Use Types Packs/Day Years Used Date Smoking Tobacco: Never Assessed Comments Unknown Sex and Gender Information Value Date Recorded Sex Assigned at Not on file 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:37 AM DENTURE PACKER Gender Identity Not on file Sexual Orientation Not on file documented as of this encounter Plan of Treatment Not on file documented as of this encounter Visit Diagnoses Diagnosis Contusion of toe- Primary Closed fracture of one or more phalanges of foot documented in this encounter Care Teams Manager Of Human Resources Relationship Specialty Start Date End Date Yumi Alexander DO PCP - General Family Practice 10/05/17 documented as of this encounter
--- OUTSIDE RECORDS SUMMARY | 2025-04-01 16:23 | XMS_ITS | Encounter Summary ---
Author Organization [facility] Address [address] [place] [address] Care Team Providers Care Cruise Counselor Name Role Phone Yumi Alexander DO Primary Care Provider +1- [phone] Encounter Details Date Type Department Care Team (Latest Contact Info) Description 05/27/2005 Outpatient Historical 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
--- OUTSIDE RECORDS SUMMARY | 2025-04-01 16:23 | XMS_ITS | Encounter Summary ---
Author Organization [facility] Address [address] [place] [address] Care Team Providers Care Lithographic Press Operator Apprentice Name Role Phone Yumi Alexander DO Primary Care Provider +1- [phone] Encounter Details Date Type Department Care Team (Latest Contact Info) Description 08/27/2005 Outpatient Historical [address] [phone] Vero Li MD [facility] [place] [address] ACUTE FRONTAL SINUSITIS (Primary Dx); DERMATOPHYTOSIS OF NAIL Social History Tobacco Use Types Packs/Day Years Used Date Smoking Tobacco: Never Assessed Comments Unknown Sex and Gender Information Value Date Recorded Sex Assigned at Not on file 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:37 AM CONVOLUTE TUBE WINDER Gender Identity Not on file Sexual Orientation Not on file documented as of this encounter Plan of Treatment Not on file documented as of this encounter Visit Diagnoses Diagnosis Acute frontal sinusitis- Primary Dermatophytosis of nail documented in this encounter Care Teams Lithographic Press Operator Apprentice Relationship Specialty Start Date End Date Yumi Alexander DO PCP - General Family Practice 10/05/17 documented as of this encounter
--- OUTSIDE RECORDS SUMMARY | 2025-04-01 16:23 | XMS_ITS | Encounter Summary ---
Author Organization [facility] Address [address] [place] [address] Care Team Providers Care Knife Cutter Name Role Phone Yumi Alexander DO Primary Care Provider +1- [phone] Encounter Details Date Type Department Care Team (Late st Contact Info) Description 04/28/2005 Outpatient Historical [facility] Imaging Services-[facility] [place] [address] [place] [phone] Social History Tobacco Use Types Packs/Day Years Used Date Smoking Tobacco: Never Assessed Comments Unknown Sex and Gender Information Value Date Recorded Sex Assigned at Not on file 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:37 AM WAREHOUSE PACKER Gender Identity Not on file Sexual Orientation Not on file documented as of this encounter Plan of Treatment Not on file documented as of this encounter Visit Diagnoses Not on filedocumented in this encounter Care Teams Knife Cutter Relationship Specialty Start Date End Date Yumi Alexander DO PCP - General Family Practice 10/05/17 documented as of this encounter
--- OUTSIDE RECORDS SUMMARY | 2025-04-01 16:23 | XMS_ITS | Encounter Summary ---
Author Organization [facility] Address [address] [place] [address] Care Team Providers Care Biosolids Management Technician Name Role Phone Yumi Alexander DO Primary Care Provider +1- [phone] Encounter Details Date Type Department Care Team (Late st Contact Info) Description 04/23/2005 Outpatient Historical [facility] OBGYN-[address] [address] Jazzy Pugh MD [address] [place] [address] UTERVAGINAL PROLAPSE NOS (Primary Dx) Social History Tobacco Use Types Packs/Day Years Used Date Smoking Tobacco: Never Assessed Comments Unknown Sex and Gender Information Value Date Recorded Sex Assigned at Not on file 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
--- OUTSIDE RECORDS SUMMARY | 2025-04-01 16:23 | XMS_ITS | Encounter Summary ---
Author Organization [facility] Address [address] [place] [address] Care Team Providers Care Middle School Spanish Teacher Name Role Phone Yumi Alexander DO Primary Care Provider +1- [phone] Encounter Details Date Type Department Care Team (Latest Contact Info) Description 02/27/2005 Outpatient Historical [facility] Medicine [address] [phone] Yaneli Flores MD [address] [place] [phone] CYSTOCELE, MIDLINE (Primary Dx); DISEASES OF NAIL NEC; FORK LIFT TECHNICIAN MARITAL/PARTNR PROBLM NOS Social History Tobacco Use Types Packs/Day Years Used Date Smoking Tobacco: Never Assessed Comments Unknown Sex and Gender Information Value Date Recorded Sex Assigned at Not on file 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:37 AM CONCAVING MACHINE OPERATOR Gender Identity Not on file Sexual Orientation Not on file documented as of this encounter Plan of Treatment Not on file documented as of this encounter Visit Diagnoses Diagnosis Cystocele, midline- Primary Other specified disease of nail Counseling for marital and partner problems, unspecified documented in this encounter Care Teams Middle School Spanish Teacher Relationship Specialty Start Date End Date Yumi Alexander DO PCP - General Family Practice 10/05/17 documented as of this encounter
--- OUTSIDE RECORDS SUMMARY | 2025-04-01 16:23 | XMS_ITS | Encounter Summary ---
Author Organization [facility] Address [address] [place] [address] Care Team Providers Care Group Home Counselor Name Role Phone Benjamin Yumi Manisha VALENCIA Primary Care Provider +1- [phone] Reason for Referral * Outpatient Services (Routine) - Closed Specialty Diagnoses / Procedures Referred By Ally matias Referred To Contact Radiology Diagnoses Other screening mammogram Procedures MAMMO DIGITAL SCREEN BILAT Chantal Ahmadi FNP [address] [place] [address] Phone: tel: fax: [facility] [place] [address] [place] [address] Phone: tel: fax: Referral ID Status Reason Start Date Expiration Date Visits Re quested Visits Authorized [id number] Closed 01/29/2011 07/28/2011 1 1 Encounter Details Date Type Department Care Team (Late st Contact Info) Description 01/29/2011 Ancillary Orders [facility] [place] [address] [place] [address] Sd Constantino MD [address] [place] [phone] Other screening mammogram Social History Tobacco Use Types Packs/Day Years Used Date Smoking Tobacco: Never Alcohol Use Standard Drinks/Week Comments No 0 (1 standard drink = 0.6 oz pur e alcohol) Comments No Sex and Gender Information Value Date Recorded Sex Assigned at Not on file 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:37 AM DIRECT SALES REPRESENTATIVE Gender Identity Not on file Sexual Orientation Not on file documented as of this encounter Plan of Treatment Not on file documented as of this encounter Results * MAMMO DIGITAL SCREEN BILAT (01/29/2011 10:24 AM CDT) Anatomical Region Laterality Modality Breast Bilateral Mammography Narrative 01/30/2011 11:04 AM CDT Bilateral Mammogram Reason for Exam: Screening Comparison: Comparison is made with the prior exam(s) dated 11.04.06 Findings: Bilateral CC and MLO views were obtained. This examination was reviewed with the aid of a computer-aided detection system(CAD). The breast tissue density is average. No significant new findings since the prior mammogram(s). Procedure Note Nicole Watt MD - 01/30/2011 Bilateral Mammogram Reason for Exam: Screening Comparison: Comparison is made with the prior exam(s) dated 11.04.06 Findings: Bilateral CC and MLO views were obtained. This examination was reviewed with the aid of a computer-aided detectionsystem(CAD). The breast tissue density is average. No significant new findings since the prior mammogram(s). Chantal Ahmadi APPLICATIONS ENGINEER MAMMO ORDERABLES Final Result documented in this encounter Visit Diagnoses Diagnosis Other screening mammogram Other screening mammogram documented in this encounter Care Teams Group Home Counselor Relationship Specialty Start Date End Date Yumi Alexander DO PCP - General Family Practice 10/05/17 documented as of this encounter
--- OUTSIDE RECORDS SUMMARY | 2025-04-01 16:23 | XMS_ITS | Encounter Summary ---
Author Organization [facility] Address [address] [place] [address] Care Team Providers Care Stonemason Supervisor Name Role Phone Yumi Alexander DO Primary Care Provider +1- [phone] Encounter Details Date Type Department Care Team (Late st Contact Info) Description 03/13/2005 Outpatient Historical [facility] OBGYN-[address] [address] Jazzy Pugh MD [address] [place] [address] UTERVAGINAL PROLAPSE NOS (Primary Dx) Social History Tobacco Use Types Packs/Day Years Used Date Smoking Tobacco: Never Assessed Comments Unknown Sex and Gender Information Value Date Recorded Sex Assigned at Not on file 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:37 AM TARGET AIRCRAFT CONTROLLER Gender Identity Not on file Sexual Orientation Not on file documented as of this encounter Plan of Treatment Not on file documented as of this encounter Visit Diagnoses Diagnosis Uterovaginal prolapse, unspecified- Primary documented in this encounter Care Teams Stonemason Supervisor Relationship Specialty Start Date End Date Yumi Alexander DO PCP - General Family Practice 10/05/17 documented as of this encounter
--- OUTSIDE RECORDS SUMMARY | 2025-04-01 16:23 | XMS_ITS | Encounter Summary ---
Author Organization [facility] Address [address] [place] [address] Care Team Providers Care Vice President Tax Name Role Phone Yumi Alexander DO Primary Care Provider +1- [phone] Encounter Details Date Type Department Care Team (Latest Contact Info) Description 04/27/2005 Outpatient Historical [address] [phone] Sd Constantino MD [address] [place] [phone] CONTUSION OF FOOT (Primary Dx) Social History Tobacco Use Types Packs/Day Years Used Date Smoking Tobacco: Never Assessed Comments Unknown Sex and Gender Information Value Date Recorded Sex Assigned at Not on file 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:37 AM INSULATION CUPOLA CHARGER Gender Identity Not on file Sexual Orientation Not on file documented as of this encounter Plan of Treatment Not on file documented as of this encounter Visit Diagnoses Diagnosis Contusion of foot- Primary documented in this encounter Care Teams Vice President Tax Relationship Specialty Start Date End Date Yumi Alexander DO PCP - General Family Practice 10/05/17 documented as of this encounter
[2025-04-01 17:08] VITALS: BP 175/75; PULSE 77; O2SAT 96
[2025-04-01] MEDS: HYDROcodone-acetaminophen 5-325 mg Tablet 1 TAB PO (17:52)
[2025-04-01] MEDS: HYDROcodone-acetaminophen 7.5-325 mg Tablet 2 TAB PO (18:40)
[2025-04-01 18:45] VITALS: BP 164/70; PULSE 76; O2SAT 96
== END 2025-04-01 18:46 | disposition home or self-care (01) ==
PROVIDERS: Emergency Provider Physician Assistant; PCP Family Medicine
DX: M54.50 Low back pain, unspecified (principal); W19.XXXA Unspecified fall, initial encounter; M25.551 Pain in right hip
CPT/HCPCS: 73502; 99283; J9999

== ENCOUNTER 2025-04-03 14:59 | Emergency (ER) | payer MEDICARE, SELFPAY ==
[2025-04-03 15:00] VITALS: BP 177/92; PULSE 85; RESP 16; TEMP 36.8; O2SAT 95; BMI 18.1
--- OUTSIDE RECORDS SUMMARY | 2025-04-03 15:03 | XMS_ITS | Encounter Summary ---
Author Organization [facility] Address [address] [place] [address] Care Team Providers Care Fruit Or Nut Farmworker Name Role Phone Yumi Alexander DO Primary Care Provider +1- [phone] Encounter Details Date Type Department Care Team (Latest Contact Info) Description 07/12/2001 Outpatient Historical [facility] [place] [address] [place] [phone] Nicole Watt MD NO ADDRESS ON FILE SCREENING MAMM-MAILG NEOPL-OTHER (Primary Dx) Social History Tobacco Use Types Packs/Day Years Used Date Smoking Tobacco: Never Assessed Comments Unknown Sex and Gender Information Value Date Recorded Sex Assigned at Not on file 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:37 AM DOG BEAUTICIAN Gender Identity Not on file Sexual Orientation Not on file documented as of this encounter Plan of Treatment Not on file documented as of this encounter Visit Diagnoses Diagnosis Other screening mammogram- Primary documented in this encounter Care Teams Fruit Or Nut Farmworker Relationship Specialty Start Date End Date Yumi Alexander DO PCP - General Family Practice 10/05/17 documented as of this encounter
--- OUTSIDE RECORDS SUMMARY | 2025-04-03 15:03 | XMS_ITS | Encounter Summary ---
Author Organization [facility] Address [address] [place] [address] Care Team Providers Care Supervisor Die Casting Name Role Phone Yumi Alexander DO Primary Care Provider +1- [phone] Encounter Details Date Type Department Care Team (Late st Contact Info) Description 08/02/2007 Outpatient Historical [facility] Medicine [address] [phone] Yaneli Flores MD [address] [place] [phone] Social History Tobacco Use Types Packs/Day Years Used Date Smoking Tobacco: Never Assessed Comments Unknown Sex and Gender Information Value Date Recorded Sex Assigned at Not on file 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:37 AM PANELBOARD ASSEMBLER Gender Identity Not on file Sexual Orientation Not on file documented as of this encounter Plan of Treatment Not on file documented as of this encounter Visit Diagnoses Not on filedocumented in this encounter Care Teams Supervisor Die Casting Relationship Specialty Start Date End Date Yumi Alexander DO PCP - General Family Practice 10/05/17 documented as of this encounter
--- OUTSIDE RECORDS SUMMARY | 2025-04-03 15:03 | XMS_ITS | Encounter Summary ---
Author Organization [facility] Address [address] [place] [address] Care Team Providers Care Industrial Technology Education Teacher Name Role Phone Yumi Alexander DO Primary Care Provider +1- [phone] Encounter Details Date Type Department Care Team (Latest Contact Info) Description 06/20/2001 Outpatient Historical [address] [phone] Patric Srinivasan MD [address] [place] [address] Acute pharyngitis (Primary Dx) Social History Tobacco Use Types Packs/Day Years Used Date Smoking Tobacco: Never Assessed Comments Unknown Sex and Gender Information Value Date Recorded Sex Assigned at Not on file 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:37 AM PLATING TANK OPERATOR APPRENTICE Gender Identity Not on file Sexual Orientation Not on file documented as of this encounter Plan of Treatment Not on file documented as of this encounter Visit Diagnoses Diagnosis Acute pharyngitis- Primary documented in this encounter Care Teams Industrial Technology Education Teacher Relationship Specialty Start Date End Date Yumi Alexander DO PCP - General Family Practice 10/05/17 documented as of this encounter
--- OUTSIDE RECORDS SUMMARY | 2025-04-03 15:03 | XMS_ITS | Encounter Summary ---
Author Organization [facility] Address [address] [place] [address] Care Team Providers Care Diabetologist Name Role Phone Yumi Alexander DO Primary Care Provider +1- [phone] Encounter Details Date Type Department Care Team (Latest Contact Info) Description 08/08/2001 Outpatient Historical [address] [phone] Patric Srinivasan MD [address] [place] [address] NONINFEC GASTROENTERIT NEC (Primary Dx); STOMACH FUNCTION DIS NEC; ESOPHAGEAL REFLUX Social History Tobacco Use Types Packs/Day Years Used Date Smoking Tobacco: Never Assessed Comments Unknown Sex and Gender Information Value Date Recorded Sex Assigned at Not on file 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:37 AM STRIPPER OPAQUER Gender Identity Not on file Sexual Orientation Not on file documented as of this encounter Plan of Treatment Not on file documented as of this encounter Visit Diagnoses Diagnosis Other and unspecified noninfectious gastroenteritis and colitis(558.9)- Primary Other and unspecified noninfectious gastroenteritis and colitis Dyspepsia and other specified disorders of function of stomach Esophageal reflux documented in this encounter Care Teams Diabetologist Relationship Specialty Start Date End Date Yumi Alexander DO PCP - General Family Practice 10/05/17 documented as of this encounter
--- OUTSIDE RECORDS SUMMARY | 2025-04-03 15:03 | XMS_ITS | Encounter Summary ---
Author Organization [facility] Address [address] [place] [address] Care Team Providers Care Steam Table Attendant Name Role Phone Yumi Alexander DO Primary Care Provider +1- [phone] Encounter Details Date Type Department Care Team (Latest Contact Info) Description 11/04/2006 Outpatient Historical [facility] [address] [facility] [place] [address] [place] [phone] Nicole Watt MD NO ADDRESS ON FILE Other Screening Mammogram (Primary Dx) Social History Tobacco Use Types Packs/Day Years Used Date Smoking Tobacco: Never Assessed Comments Unknown Sex and Gender Information Value Date Recorded Sex Assigned at Not on file 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:37 AM EXPLOSIVES OPERATOR Gender Identity Not on file Sexual Orientation Not on file documented as of this encounter Plan of Treatment Not on file documented as of this encounter Visit Diagnoses Diagnosis Other screening mammogram- Primary documented in this encounter Care Teams Steam Table Attendant Relationship Specialty Start Date End Date Yumi Alexander DO PCP - General Family Practice 10/05/17 documented as of this encounter
--- OUTSIDE RECORDS SUMMARY | 2025-04-03 15:03 | XMS_ITS | Encounter Summary ---
Author Organization [facility] Address [address] [place] [address] Care Team Providers Care Catcher Plug Name Role Phone Yumi Alexander DO Primary Care Provider +1- [phone] Encounter Details Date Type Department Care Team (Latest Contact Info) Description 12/01/2002 Outpatient Historical [address] [phone] Shanda Duong MD [address] [place] [address] SCREENING MAL NEOP-CERVIX (Primary Dx) Social History Tobacco Use Types Packs/Day Years Used Date Smoking Tobacco: Never Assessed Comments Unknown Sex and Gender Information Value Date Recorded Sex Assigned at Not on file 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
--- OUTSIDE RECORDS SUMMARY | 2025-04-03 15:03 | XMS_ITS | Encounter Summary ---
Author Organization [facility] Address [address] [place] [address] Care Team Providers Care Director Patient Financial Services Name Role Phone Yumi Alexander DO Primary Care Provider +1- [phone] Encounter Details Date Type Department Care Team (Late st Contact Info) Description 01/03/2007 Outpatient Historical [facility] [place] [address] [place] [phone] Social History Tobacco Use Types Packs/Day Years Used Date Smoking Tobacco: Never Assessed Comments Unknown Sex and Gender Information Value Date Recorded Sex Assigned at Not on file 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:37 AM POLICY CANCELLATION CLERK Gender Identity Not on file Sexual Orientation Not on file documented as of this encounter Plan of Treatment Not on file documented as of this encounter Visit Diagnoses Not on filedocumented in this encounter Care Teams Director Patient Financial Services Relationship Specialty Start Date End Date Yumi Alexander DO PCP - General Family Practice 10/05/17 documented as of this encounter
--- OUTSIDE RECORDS SUMMARY | 2025-04-03 15:03 | XMS_ITS | Encounter Summary ---
Author Organization [facility] Address [address] [place] [address] Care Team Providers Care Utility Bill Complaints Investigator Name Role Phone Yumi Alexander DO Primary Care Provider +1- [phone] Encounter Details Date Type Department Care Team (Latest Contact Info) Description 01/09/1999 Outpatient Historical [address] [phone] Yaneli Folres MD [address] [place] [phone] Gynecologic examination (Primary Dx) Social History Tobacco Use Types Packs/Day Years Used Date Smoking Tobacco: Never Assessed Comments Unknown Sex and Gender Information Value Date Recorded Sex Assigned at Not on file 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:37 AM BEATING MACHINE OPERATOR Gender Identity Not on file Sexual Orientation Not on file documented as of this encounter Plan of Treatment Not on file documented as of this encounter Visit Diagnoses Diagnosis Gynecologic examination- Primary Gynecological examination documented in this encounter Care Teams Utility Bill Complaints Investigator Relationship Specialty Start Date End Date Yumi Alexander DO PCP - General Family Practice 10/05/17 documented as of this encounter
--- OUTSIDE RECORDS SUMMARY | 2025-04-03 15:03 | XMS_ITS | Encounter Summary ---
Author Organization [facility] Address [address] [place] [address] Care Team Providers Care Bondactor Machine Operator Name Role Phone Yumi Alexander DO Primary Care Provider +1- [phone] Encounter Details Date Type Department Care Team (Latest Contact Info) Description 01/11/1998 Outpatient Historical [facility] Int [facility] [address] [place] [phone] Maria Qiu MD [address] [place] [address] Routine medical exam (Primary Dx) Social History Tobacco Use Types Packs/Day Years Used Date Smoking Tobacco: Never Assessed Comments Unknown Sex and Gender Information Value Date Recorded Sex Assigned at Not on file 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:37 AM NEIGHBORHOOD COORDINATOR Gender Identity Not on file Sexual Orientation Not on file documented as of this encounter Plan of Treatment Not on file documented as of this encounter Visit Diagnoses Diagnosis Routine medical exam- Primary Routine general medical examination at a health care facility documented in this encounter Care Teams Bondactor Machine Operator Relationship Specialty Start Date End Date Yumi Alexander DO PCP - General Family Practice 10/05/17 documented as of this encounter
--- OUTSIDE RECORDS SUMMARY | 2025-04-03 15:03 | XMS_ITS | Encounter Summary ---
Author Organization [facility] Address [address] [place] [address] Care Team Providers Care Corn Detasseler Machine Operator Name Role Phone Yumi Alexander DO Primary Care Provider +1- [phone] Encounter Details Date Type Department Care Team (Latest Contact Info) Description 11/06/2005 Outpatient Historical [facility] Medicine [place] [address] [phone] Chantal Ahmadi, [facility] [address] [phone] Other Diseases of Trachea and Bronchus, not Elsewhere Classified (Primary Dx) Social History Tobacco Use Types Packs/Day Years Used Date Smoking Tobacco: Never Assessed Comments Unknown Sex and Gender Information Value Date Recorded Sex Assigned at Not on file 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:37 AM PRODUCT SUPPORT CONSULTANT Gender Identity Not on file Sexual Orientation Not on file documented as of this encounter Plan of Treatment Not on file documented as of this encounter Visit Diagnoses Diagnosis Other diseases of trachea and bronchus, not elsewhere classified- Primary documented in this encounter Care Teams Corn Detasseler Machine Operator Relationship Specialty Start Date End Date Yumi Alexander DO PCP - General Family Practice 10/05/17 documented as of this encounter
--- OUTSIDE RECORDS SUMMARY | 2025-04-03 15:03 | XMS_ITS | Encounter Summary ---
Author Organization [facility] Address [address] [place] [address] Care Team Providers Care Finger Grip Machine Operator Name Role Phone Yumi Alexander DO Primary Care Provider +1- [phone] Encounter Details Date Type Department Care Team (Latest Contact Info) Description 08/08/2002 Outpatient Historical [facility] Breast [place] [address] [place] [address] [place] [phone] Nicole Watt MD NO ADDRESS ON FILE SCREENING MAMM-MAILG NEOPL-OTHER (Primary Dx) Social History Tobacco Use Types Packs/Day Years Used Date Smoking Tobacco: Never Assessed Comments Unknown Sex and Gender Information Value Date Recorded Sex Assigned at Not on file 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:37 AM SYSTEM SUPPORT ADMINISTRATOR Gender Identity Not on file Sexual Orientation Not on file documented as of this encounter Plan of Treatment Not on file documented as of this encounter Visit Diagnoses Diagnosis Other screening mammogram- Primary documented in this encounter Care Teams Finger Grip Machine Operator Relationship Specialty Start Date End Date Yumi Alexander DO PCP - General Family Practice 10/05/17 documented as of this encounter
--- OUTSIDE RECORDS SUMMARY | 2025-04-03 15:03 | XMS_ITS | Encounter Summary ---
Author Organization [facility] Address [address] [place] [address] Care Team Providers Care Risk Control Analyst Name Role Phone Yumi Alexander Primary Care Provider +1- [phone] Encounter Details Date Type Department Care Team (Latest Contact Info) Description 05/23/2008 Outpatient Historical [facility] Medicine [address] [phone] Chantal Ahmadi, [facility] [address] [phone] Rash and Other Nonspecific Skin Eruption Social History Tobacco Use Types Packs/Day Years Used Date Smoking Tobacco: Never Alcohol Use Standard Drinks/Week Comments No 0 (1 standard drink = 0.6 oz pur e alcohol) Comments No Sex and Gender Information Value Date Recorded Sex Assigned at Not on file 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:37 AM NUTRITION ASSOCIATE Gender Identity Not on file Sexual Orientation [...] 05/24/2008 1:57 PM CDT us Chantal Ahmadi COMPOSING MACHINE OPERATOR MICROBIOLOGY - GENERAL ORDERA BLES Final Result INTERFACE SYSTEM Refer to clinic/hospital department documented in this encounter Visit Diagnoses Diagnosis Rash and other nonspecific skin eruption documented in this encounter Care Teams Risk Control Analyst Relationship Specialty Start Date End Date Yumi Alexander DO PCP - General Family Practice 10/05/17 documented as of this encounter
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
--- OUTSIDE RECORDS SUMMARY | 2025-04-03 15:03 | XMS_ITS | Encounter Summary ---
Author Organization [facility] Address [address] [place] [address] Care Team Providers Care Satellite Tv Technician Installer Name Role Phone Yumi Alexander Primary Care Provider +1- [phone] Encounter Details Date Type Department Care Team (Latest Contact Info) Description 06/19/2008 Outpatient Historical [facility] [address] [place] [phone] Leif Trinidad MD NO ADDRESS ON FILE Other Diseases of Lung, not Elsewhere Classified Social History Tobacco Use Types Packs/Day Years Used Date Smoking Tobacco: Never Alcohol Use Standard Drinks/Week Comments No 0 (1 standard drink = 0.6 oz pur e alcohol) Comments No Sex and Gender Information Value Date Recorded Sex Assigned at Not on file 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:37 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 Gender Identity Not on file Sexual Orientation [...] CREATININE POC 0.8 0.7 - 1.2 mg/dL [facility] Capillary blood specimen (specimen) 06/29/2008 8:48 AM CDT 06/29/2008 4:26 PM CDT us Leif Trinidad MD POINT OF CARE TESTING Final Re sult INTERFACE SYSTEM Refer to clinic/hospital department [facility] CLIA# [id number] [address] [place] [address] documented in this encounter Visit Diagnoses Diagnosis Other diseases of lung, not elsewhere classified documented in this encounter Care Teams Satellite Tv Technician Installer Relationship Specialty Start Date End Date Yumi Alexander DO PCP - General Family Practice 10/05/17 documented as of this encounter
--- OUTSIDE RECORDS SUMMARY | 2025-04-03 15:03 | XMS_ITS | Encounter Summary ---
Author Organization [facility] Address [address] [place] [address] Care Team Providers Care Analysis Evaluator Name Role Phone Yumi Alexander DO Primary Care Provider +1- [phone] Encounter Details Date Type Department Care Team (Latest Contact Info) Description 02/09/2001 Outpatient [facility] Int [facility] [address] [place] [phone] Maria Qiu MD [address] [place] [address] Genital prolapse NEC (Primary Dx); Screening for malignant neoplasm of the cervix Social History Tobacco Use Types Packs/Day Years Used Date Smoking Tobacco: Never Assessed Comments Unknown Sex and Gender Information Value Date Recorded Sex Assigned at Not on file 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:37 AM LEACH CELL OPERATOR Gender Identity Not on file Sexual Orientation Not on file documented as of this encounter Plan of Treatment Not on file documented as of this encounter Visit Diagnoses Diagnosis Genital prolapse NEC- Primary Other specified genital prolapse Screening for malignant neoplasm of the cervix documented in this encounter Care Teams Analysis Evaluator Relationship Specialty Start Date End Date Yumi Alexander DO PCP - General Family Practice 10/05/17 documented as of this encounter
--- OUTSIDE RECORDS SUMMARY | 2025-04-03 15:03 | XMS_ITS | Encounter Summary ---
Author Organization [facility] Address [address] [place] [address] Care Team Providers Care Icu Clerk Name Role Phone Yumi Alexander DO Primary Care Provider +1- [phone] Encounter Details Date Type Department Care Team (Late st Contact Info) Description 11/06/2008 Ancillary Orders [facility] Pain Management Procedures [address] [place] [phone] Jairo Rangel MD NO ADDRESS ON FILE Disorder of Sacrum Social History Tobacco Use Types Packs/Day Years Used Date Smoking Tobacco: Never Alcohol Use Standard Drinks/Week Comments No 0 (1 standard drink = 0.6 oz pur e alcohol) Comments No Sex and Gender Information Value Date Recorded Sex Assigned at Not on file 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:37 AM SUPPLY ASSISTANT Gender Identity Not on file Sexual [...] sacrum documented in this encounter Care Teams Icu Clerk Relationship Specialty Start Date End Date Yumi Alexander DO PCP - General Family Practice 10/05/17 documented as of this encounter
--- OUTSIDE RECORDS SUMMARY | 2025-04-03 15:03 | XMS_ITS | Encounter Summary ---
Author Organization [facility] Address [address] [place] [address] Care Team Providers Care First Officer Name Role Phone Yumi Alexander DO Primary Care Provider +1- [phone] Encounter Details Date Type Department Care Team (Latest Contact Info) Description 05/14/2000 Outpatient Historical [address] [phone] Patric Srinivasan MD [address] [place] [address] Swelling of limb (Primary Dx); Closed fracture of metacarpal bone(s), site unspecified Social History Tobacco Use Types Packs/Day Years Used Date Smoking Tobacco: Never Assessed Comments Unknown Sex and Gender Information Value Date Recorded Sex Assigned at Not on file 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:37 AM PHOTO MASK 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
--- OUTSIDE RECORDS SUMMARY | 2025-04-03 15:03 | XMS_ITS | Encounter Summary ---
Author Organization [facility] Address [address] [place] [address] Care Team Providers Care Wire Annealer Name Role Phone Yumi Alexander DO Primary Care Provider +1- [phone] Encounter Details Date Type Department Care Team (Latest Contact Info) Description 04/25/1998 Outpatient Historical [facility] Breast [place] [facility] [place] [address] [place] [phone] Nicole Watt MD NO ADDRESS ON FILE Other screening mammogram (Primary Dx) Social History Tobacco Use Types Packs/Day Years Used Date Smoking Tobacco: Never Assessed Comments Unknown Sex and Gender Information Value Date Recorded Sex Assigned at Not on file 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
--- OUTSIDE RECORDS SUMMARY | 2025-04-03 15:03 | XMS_ITS | Encounter Summary ---
Author Organization [facility] Address [address] [place] [address] Care Team Providers Care Director Of Occupational Health Name Role Phone Yumi Alexander DO Primary Care Provider +1- [phone] Encounter Details Date Type Department Care Team (Latest Contact Info) Description 09/15/2000 Outpatient Historical [facility] Josep Shine MD [address] [place] [address] Closed fracture of shaft of metacarpal bone(s) (Primary Dx) Social History Tobacco Use Types Packs/Day Years Used Date Smoking Tobacco: Never Assessed Comments Unknown Sex and Gender Information Value Date Recorded Sex Assigned at Not on file 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:37 AM RACQUET 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
--- OUTSIDE RECORDS SUMMARY | 2025-04-03 15:03 | XMS_ITS | Encounter Summary ---
Author Organization [facility] Address [address] [place] [address] Care Team Providers Care Partner Cco Name Role Phone Yumi Alexander DO Primary Care Provider +1- [phone] Encounter Details Date Type Department Care Team (Latest Contact Info) Description 12/23/1999 Outpatient Historical [address] [phone] Yaneli Flores MD [address] [place] [phone] Osteoarthrosis, unspecified whether generalized or localized, other specified sites (Primary Dx); Gynecologic examination Social History Tobacco Use Types Packs/Day Years Used Date Smoking Tobacco: Never Assessed Comments Unknown Sex and Gender Information Value Date Recorded Sex Assigned at Not on file 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
--- OUTSIDE RECORDS SUMMARY | 2025-04-03 15:03 | XMS_ITS | Encounter Summary ---
Author Organization [facility] Address [address] [place] [address] Care Team Providers Care Maintainer Plant Name Role Phone Yumi Alexander DO Primary Care Provider +1- [phone] Encounter Details Date Type Department Care Team (Latest Contact Info) Description 12/24/2006 Outpatient Historical [facility] Medicine [address] [phone] Yaneli Flores MD [address] [place] [phone] Unspecified Osteoporosis (Primary Dx); Pathologic Fracture of Vertebrae Social History Tobacco Use Types Packs/Day Years Used Date Smoking Tobacco: Never Assessed Comments Unknown Sex and Gender Information Value Date Recorded Sex Assigned at Not on file 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:37 AM OCCUPATIONAL HEALTH AND SAFETY OFFICER Gender Identity Not on file Sexual Orientation Not on file documented as of this encounter Plan of Treatment Not on file documented as of this encounter Visit Diagnoses Diagnosis Osteoporosis, unspecified- Primary Pathologic fracture of vertebrae documented in this encounter Care Teams Maintainer Plant Relationship Specialty Start Date End Date Yumi Alexander DO PCP - General Family Practice 10/05/17 documented as of this encounter
--- OUTSIDE RECORDS SUMMARY | 2025-04-03 15:03 | XMS_ITS | Encounter Summary ---
Author Organization 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
--- OUTSIDE RECORDS SUMMARY | 2025-04-03 15:03 | XMS_ITS | Encounter Summary ---
Author Organization [facility] Address [address] [place] [address] Care Team Providers Care Assembler Caterpillar Spider Name Role Phone Yumi Alexander Primary Care Provider +1- [phone] Encounter Details Date Type Department Care Team (Latest Contact Info) Description 06/29/2008 Outpatient Historical [facility] [address] [place] [phone] Toni Morris, DPM [address] [phone] Pain in Soft Tissues of Limb Social History Tobacco Use Types Packs/Day Years Used Date Smoking Tobacco: Never Alcohol Use Standard Drinks/Week Comments No 0 (1 standard drink = 0.6 oz pur e alcohol) Comments No Sex and Gender Information Value Date Recorded Sex Assigned at Not on file 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 Date Signed: 06/29/08 Toni Morris DPM MT ORDERABLES Final Result documented in this encounter Visit Diagnoses Diagnosis Pain in limb documented in this encounter Care Teams Assembler Caterpillar Spider Relationship Specialty Start Date End Date Yumi Alexander DO PCP - General Family Practice 10/05/17 documented as of this encounter
--- OUTSIDE RECORDS SUMMARY | 2025-04-03 15:03 | XMS_ITS | Encounter Summary ---
Author Organization [facility] Address [address] [place] [address] Care Team Providers Care Examining Officer Name Role Phone Yumi Alexander DO Primary Care Provider +1- [phone] Encounter Details Date Type Department Care Team (Latest Contact Info) Description 11/04/2005 Outpatient Historical [facility] Breast [place] Reg[address] [place] [address] [place] [phone] Nicole Watt MD NO ADDRESS ON FILE Other Screening Mammogram (Primary Dx) Social History Tobacco Use Types Packs/Day Years Used Date Smoking Tobacco: Never Assessed Comments Unknown Sex and Gender Information Value Date Recorded Sex Assigned at Not on file 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:37 AM MULT AU MATIC OPERATOR Gender Identity Not on file Sexual Orientation Not on file documented as of this encounter Plan of Treatment Not on file documented as of this encounter Visit Diagnoses Diagnosis Other screening mammogram- Primary documented in this encounter Care Teams Examining Officer Relationship Specialty Start Date End Date Yumi Alexander DO PCP - General Family Practice 10/05/17 documented as of this encounter
--- OUTSIDE RECORDS SUMMARY | 2025-04-03 15:03 | XMS_ITS | Encounter Summary ---
Author Organization [facility] Address [address] [place] [address] Care Team Providers Care Edge Bonder Name Role Phone Yumi Alexander DO Primary Care Provider +1- [phone] Encounter Details Date Type Department Care Team (Latest Contact Info) Description 04/20/2002 Outpatient [facility] [address] [facility] [address] [place] [address] Tyler Rey MD [address] [place] [address] MELENA, BLOOD IN STOOL (Primary Dx); INT HEMORRHOID W/O COMPL Social History Tobacco Use Types Packs/Day Years Used Date Smoking Tobacco: Never Assessed Comments Unknown Sex and Gender Information Value Date Recorded Sex Assigned at Not on file 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
--- OUTSIDE RECORDS SUMMARY | 2025-04-03 15:03 | XMS_ITS | Encounter Summary ---
Author Organization [facility] Address [address] [place] [address] Care Team Providers Care Shredded Filler Cutter Operator Name Role Phone Yumi Alexander DO Primary Care Provider +1- [phone] Encounter Details Date Type Department Care Team (Latest Contact Info) Description 03/06/2002 Outpatient Historical [facility] Medicine [address] [phone] Sd Constantino MD [address] [place] [phone] OPEN WOUND KNEE/LEG/ANKLE (Primary Dx) Social History Tobacco Use Types Packs/Day Years Used Date Smoking Tobacco: Never Assessed Comments Unknown Sex and Gender Information Value Date Recorded Sex Assigned at Not on file 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:37 AM SUPERVISING APPRAISER Gender Identity Not on file Sexual Orientation Not on file documented as of this encounter Plan of Treatment Not on file documented as of this encounter Visit Diagnoses Diagnosis Open wound of knee, leg (except thigh), and ankle, without mention of complication- Primary documented in this encounter Care Teams Shredded Filler Cutter Operator Relationship Specialty Start Date End Date Yumi Alexander DO PCP - General Family Practice 10/05/17 documented as of this encounter
--- OUTSIDE RECORDS SUMMARY | 2025-04-03 15:03 | XMS_ITS | Encounter Summary ---
Author Organization [facility] Address [address] [place] [address] Care Team Providers Care Combiner Name Role Phone Yumi Alexander DO Primary Care Provider +1- [phone] Encounter Details Date Type Department Care Team (Latest Contact Info) Description 06/30/2000 Outpatient Historical [facility] Josep Shine MD [address] [place] [address] Closed fracture of metacarpal bone(s), site unspecified (Primary Dx) Social History Tobacco Use Types Packs/Day Years Used Date Smoking Tobacco: Never Assessed Comments Unknown Sex and Gender Information Value Date Recorded Sex Assigned at Not on file 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
--- OUTSIDE RECORDS SUMMARY | 2025-04-03 15:03 | XMS_ITS | Encounter Summary ---
Author Organization [facility] Address [address] [place] [address] Care Team Providers Care Doctor Of Pharmacy Name Role Phone Yumi Alexander DO Primary Care Provider +1- [phone] Encounter Details Date Type Department Care Team (Latest Contact Info) Description 12/01/2002 Outpatient Historical [address] [phone] Shanda Duong MD [address] [place] [address] PROLAPSE OF VAGINAL WALL (Primary Dx); URGE INCONTINENCE Social History Tobacco Use Types Packs/Day Years Used Date Smoking Tobacco: Never Assessed Comments Unknown Sex and Gender Information Value Date Recorded Sex Assigned at Not on file 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:37 AM RING FACER Gender Identity Not on file Sexual Orientation Not on file documented as of this encounter Plan of Treatment Not on file documented as of this encounter Visit Diagnoses Diagnosis Prolapse of vaginal shane without mention of uterine prolapse- Primary Urge incontinence documented in this encounter Care Teams Doctor Of Pharmacy Relationship Specialty Start Date End Date Yumi Alexander DO PCP - General Family Practice 10/05/17 documented as of this encounter
--- OUTSIDE RECORDS SUMMARY | 2025-04-03 15:03 | XMS_ITS | Encounter Summary ---
Author Organization [facility] Address [address] [place] [address] Care Team Providers Care Apparel Fashion Designer Name Role Phone Yumi Alexander DO Primary Care Provider +1- [phone] Encounter Details Date Type Department Care Team (Latest Contact Info) Description 06/30/2000 Outpatient Historical [facility] [address] 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
--- OUTSIDE RECORDS SUMMARY | 2025-04-03 15:03 | XMS_ITS | Encounter Summary ---
Author Organization [facility] Address [address] [facility] Attn: Epic Prelude ADT [place] [address] Care Team Providers Care Welding Foreman Name Role Phone Yumi Alexander DO Primary Care Provider +1- [phone] Encounter Details Date Type Department Care Team (Late st Contact Info) Description 05/10/2000 Outpatient Historical Josep Shine MD [address] [place] [address] Social History Tobacco Use Types Packs/Day Years Used Date Smoking Tobacco: Never Assessed Comments Unknown Sex and Gender Information Value Date Recorded Sex Assigned at Not on file 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:37 AM DIE REAMER Gender Identity Not on file Sexual Orientation Not on file documented as of this encounter Plan of Treatment Not on file documented as of this encounter Visit Diagnoses Not on filedocumented in this encounter Care Teams Welding Foreman Relationship Specialty Start Date End Date Yumi Alexander DO PCP - General Family Practice 10/05/17 documented as of this encounter
--- OUTSIDE RECORDS SUMMARY | 2025-04-03 15:03 | XMS_ITS | Encounter Summary ---
Author Organization [facility] Address [address] [facility] Attn: Epic Prelude ADT [place] [address] Care Team Providers Care Quality Assurance Supervisor Final Name Role Phone Yumi Alexander DO Primary Care Provider +1- [phone] Encounter Details Date Type Department Care Team (Latest Contact Info) Description 05/07/2000 Emergency Joni Montesinos MD NO ADDRESS ON FILE Social History Tobacco Use Types Packs/Day Years Used Date Smoking Tobacco: Never Assessed Comments Unknown Sex and Gender Information Value Date Recorded Sex Assigned at Not on file 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:37 AM RN ENDOSCOPY Gender Identity Not on file Sexual Orientation Not on file documented as of this encounter Plan of Treatment Not on file documented as of this encounter Visit Diagnoses Not on filedocumented in this encounter Care Teams Quality Assurance Supervisor Final Relationship Specialty Start Date End Date Yumi Alexander DO PCP - General Family Practice 10/05/17 documented as of this encounter
--- OUTSIDE RECORDS SUMMARY | 2025-04-03 15:03 | XMS_ITS | Encounter Summary ---
Author Organization [facility] Address [address] [place] [address] Care Team Providers Care Fsr Name Role Phone Yumi Alexander DO Primary Care Provider +1- [phone] Encounter Details Date Type Department Care Team (Late st Contact Info) Description 02/09/2001 Outpatient Historical [facility] OvensMaria MD [address] [place] [address] Unspecified urinary incontinence (Primary Dx) Social History Tobacco Use Types Packs/Day Years Used Date Smoking Tobacco: Never Assessed Comments Unknown Sex and Gender Information Value Date Recorded Sex Assigned at Not on file 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:37 AM ART PSYCHOTHERAPIST OR THERAPIST Gender Identity Not on file Sexual Orientation Not on file documented as of this encounter Plan of Treatment Not on file documented as of this encounter Visit Diagnoses Diagnosis Unspecified urinary incontinence- Primary documented in this encounter Care Teams Fsr Relationship Specialty Start Date End Date Yumi Alexander DO PCP - General Family Practice 10/05/17 documented as of this encounter
--- OUTSIDE RECORDS SUMMARY | 2025-04-03 15:03 | XMS_ITS | Encounter Summary ---
Author Organization [facility] Address [address] [place] [address] Care Team Providers Care Administrative Medical Director Name Role Phone Yumi Alexander DO Primary Care Provider +1- [phone] Encounter Details Date Type Department Care Team (Latest Contact Info) Description 11/04/2005 Outpatient Historical [facility] [place] Regis Crow [place] [address] [place] [phone] Yaneli Flores MD [address] [place] [phone] Other Screening Mammogram (Primary Dx) Social History Tobacco Use Types Packs/Day Years Used Date Smoking Tobacco: Never Assessed Comments Unknown Sex and Gender Information Value Date Recorded Sex Assigned at Not on file 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:37 AM ELECTRICAL RESEARCH ENGINEER Gender Identity Not on file Sexual Orientation Not on file documented as of this encounter Plan of Treatment Not on file documented as of this encounter Visit Diagnoses Diagnosis Other screening mammogram- Primary documented in this encounter Care Teams Administrative Medical Director Relationship Specialty Start Date End Date Yumi Alexander DO PCP - General Family Practice 10/05/17 documented as of this encounter
--- OUTSIDE RECORDS SUMMARY | 2025-04-03 15:03 | XMS_ITS | Encounter Summary ---
Author Organization [facility] Address [address] [place] [address] Care Team Providers Care Pinking Sewing Machine Operator Name Role Phone Yumi Alexander DO Primary Care Provider +1- [phone] Encounter Details Date Type Department Care Team (Latest Contact Info) Description 05/07/2000 Outpatient Historical [address] [phone] Yaneli Flores MD [address] [place] [address] Vomiting alone (Primary Dx); Observation following other accident Social History Tobacco Use Types Packs/Day Years Used Date Smoking Tobacco: Never Assessed Comments Unknown Sex and Gender Information Value Date Recorded Sex Assigned at Not on file 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:37 AM SKIVER BLOCKERS Gender Identity Not on file Sexual Orientation Not on file documented as of this encounter Plan of Treatment Not on file documented as of this encounter Visit Diagnoses Diagnosis Vomiting alone- Primary Observation following other accident documented in this encounter Care Teams Pinking Sewing Machine Operator Relationship Specialty Start Date End Date Yumi Alexander DO PCP - General Family Practice 10/05/17 documented as of this encounter
--- OUTSIDE RECORDS SUMMARY | 2025-04-03 15:03 | XMS_ITS | Encounter Summary ---
Author Organization [facility] Address [address] [place] [address] Care Team Providers Care Machine Rug Cleaner Name Role Phone Yumi Alexander DO Primary Care Provider +1- [phone] Encounter Details Date Type Department Care Team (Latest Contact Info) Description 08/03/2007 Outpatient Historical [address] [phone] Yaneli Flores MD [address] [place] [phone] Routine Gynecological Examination Social History Tobacco Use Types Packs/Day Years Used Date Smoking Tobacco: Never Assessed Comments Unknown Sex and Gender Information Value Date Recorded Sex Assigned at Not on file 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:37 AM WHEEL PRESSER Gender Identity Not on file Sexual Orientation Not on file documented as of this encounter Plan of Treatment Not on file documented as of this encounter Visit Diagnoses Diagnosis Routine gynecological examination documented in this encounter Care Teams Machine Rug Cleaner Relationship Specialty Start Date End Date Yumi Alexander DO PCP - General Family Practice 10/05/17 documented as of this encounter
--- OUTSIDE RECORDS SUMMARY | 2025-04-03 15:03 | XMS_ITS | Encounter Summary ---
Author Organization [facility] Address [address] [place] [address] Care Team Providers Care Finished Stock Inspector Name Role Phone Yumi Alexander DO Primary Care Provider +1- [phone] Encounter Details Date Type Department Care Team (Latest Contact Info) Description 02/09/2001 Outpatient Historical [facility] Tristin [place] [address] [place] [phone] Maria Qiu MD [address] [place] [address] Unspecified symptom associated with female genital organs (Primary Dx) Social History Tobacco Use Types Packs/Day Years Used Date Smoking Tobacco: Never Assessed Comments Unknown Sex and Gender Information Value Date Recorded Sex Assigned at Not on file 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:37 AM SOCIAL WELFARE RESEARCH WORKER Gender Identity Not on file Sexual Orientation Not on file documented as of this encounter Plan of Treatment Not on file documented as of this encounter Visit Diagnoses Diagnosis Unspecified symptom associated with female genital organs- Primary documented in this encounter Care Teams Finished Stock Inspector Relationship Specialty Start Date End Date Yumi Alexander DO PCP - General Family Practice 10/05/17 documented as of this encounter
--- OUTSIDE RECORDS SUMMARY | 2025-04-03 15:03 | XMS_ITS | Encounter Summary ---
Author Organization [facility] Address [address] [place] [address] Care Team Providers Care Repairer Art Objects Name Role Phone Yumi Alexander DO Primary Care Provider +1- [phone] Encounter Details Date Type Department Care Team (Latest Contact Info) Description 10/03/2001 Outpatient Historical [facility] AUDIOVISUAL LIBRARIAN [address] [place] [address] Dilshad Hong MD NO ADDRESS ON FILE PROLAPSE OF VAGINAL WALL (Primary Dx); FEMALE CLIMACTERIC STATE Social History Tobacco Use Types Packs/Day Years Used Date Smoking Tobacco: Never Assessed Comments Unknown Sex and Gender Information Value Date Recorded Sex Assigned at Not on file 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:37 AM APARTMENT MAINTENANCE SUPERVISOR Gender Identity Not on file Sexual Orientation Not on file documented as of this encounter Plan of Treatment Not on file documented as of this encounter Visit Diagnoses Diagnosis Prolapse of vaginal shane without mention of uterine prolapse- Primary Symptomatic menopausal or female climacteric states documented in this encounter Care Teams Repairer Art Objects Relationship Specialty Start Date End Date Yumi Alexander DO PCP - General Family Practice 10/05/17 documented as of this encounter
--- OUTSIDE RECORDS SUMMARY | 2025-04-03 15:03 | XMS_ITS | Encounter Summary ---
Author Organization [facility] Address [address] [facility] Attn: Epic Prelude ADT [place] [address] Care Team Providers Care Hand Inserter Operator Name Role Phone Yumi Alexander DO Primary Care Provider +1- [phone] Encounter Details Date Type Department Care Team (Late st Contact Info) Description 07/12/2001 Outpatient Historical Yaneli Flores MD [address] [place] [address] Social History Tobacco Use Types Packs/Day Years Used Date Smoking Tobacco: Never Assessed Comments Unknown Sex and Gender Information Value Date Recorded Sex Assigned at Not on file 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:37 AM SLUDGE MILL OPERATOR Gender Identity Not on file Sexual Orientation Not on file documented as of this encounter Plan of Treatment Not on file documented as of this encounter Visit Diagnoses Not on filedocumented in this encounter Care Teams Hand Inserter Operator Relationship Specialty Start Date End Date Yumi Alexander DO PCP - General Family Practice 10/05/17 documented as of this encounter
--- OUTSIDE RECORDS SUMMARY | 2025-04-03 15:03 | XMS_ITS | Encounter Summary ---
Author Organization [facility] Address [address] [place] [address] Care Team Providers Care Engineering Teacher Name Role Phone Yumi Alexander DO Primary Care Provider +1- [phone] Encounter Details Date Type Department Care Team (Latest Contact Info) Description 09/03/2006 Outpatient Historical [facility] Medicine [address] [phone] Yaneli Flores MD [address] [place] [phone] Dermatophytosis of Nail (Primary Dx) Social History Tobacco Use Types Packs/Day Years Used Date Smoking Tobacco: Never Assessed Comments Unknown Sex and Gender Information Value Date Recorded Sex Assigned at Not on file 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:37 AM WELDING PANTOGRAPH MACHINE OPERATOR Gender Identity Not on file Sexual Orientation Not on file documented as of this encounter Plan of Treatment Not on file documented as of this encounter Visit Diagnoses Diagnosis Dermatophytosis of nail- Primary documented in this encounter Care Teams Engineering Teacher Relationship Specialty Start Date End Date Yumi Alexander DO PCP - General Family Practice 10/05/17 documented as of this encounter
--- OUTSIDE RECORDS SUMMARY | 2025-04-03 15:03 | XMS_ITS | Encounter Summary ---
Author Organization [facility] Address [address] [place] [address] Care Team Providers Care Helicopter Pilot Instructor Name Role Phone Yumi Alexander DO Primary Care Provider +1- [phone] Encounter Details Date Type Department Care Team (Latest Contact Info) Description 11/04/2006 Outpatient Historical [facility] [place] Regis Crow [place] [address] [place] [phone] Yaneli Flores MD [address] [place] [phone] Other Screening Mammogram (Primary Dx) Social History Tobacco Use Types Packs/Day Years Used Date Smoking Tobacco: Never Assessed Comments Unknown Sex and Gender Information Value Date Recorded Sex Assigned at Not on file 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:37 AM LUNCHROOM ATTENDANT Gender Identity Not on file Sexual Orientation Not on file documented as of this encounter Plan of Treatment Not on file documented as of this encounter Visit Diagnoses Diagnosis Other screening mammogram- Primary documented in this encounter Care Teams Helicopter Pilot Instructor Relationship Specialty Start Date End Date Yumi Alexander DO PCP - General Family Practice 10/05/17 documented as of this encounter
--- OUTSIDE RECORDS SUMMARY | 2025-04-03 15:03 | XMS_ITS | Encounter Summary ---
Author Organization [facility] Address [address] [place] [address] Care Team Providers Care Gps Field Data Collector Name Role Phone Yumi Alexander Primary Care Provider +1- [phone] Encounter Details Date Type Department Care Team (Late st Contact Info) Description 11/07/2008 Ancillary Orders [facility] [address] [facility] [address] [place] [phone] Yaneli Flores MD [address] [place] [phone] Screening Mammogram Social History Tobacco Use Types Packs/Day Years Used Date Smoking Tobacco: Never Alcohol Use Standard Drinks/Week Comments No 0 (1 standard drink = 0.6 oz pur e alcohol) Comments No Sex and Gender Information Value Date Recorded Sex Assigned at Not on file 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:37 AM CAVALRY SCOUT Gender Identity Not on file Sexual Orientation [...] mammogram documented in this encounter Care Teams Gps Field Data Collector Relationship Specialty Start Date End Date Yumi Alexander DO PCP - General Family Practice 10/05/17 documented as of this encounter
--- OUTSIDE RECORDS SUMMARY | 2025-04-03 15:03 | XMS_ITS | Encounter Summary ---
Author Organization [facility] Address [address] [facility] Attn: Epic Prelude ADT [place] [address] Care Team Providers Care Senior Application Software Engineer Name Role Phone Yumi Alexander DO Primary Care Provider +1- [phone] Encounter Details Date Type Department Care Team (Late st Contact Info) Description 04/30/2000 Inpatient Historical Cuauhtemoc Martins MD NO ADDRESS ON FILE Social History Tobacco Use Types Packs/Day Years Used Date Smoking Tobacco: Never Assessed Comments Unknown Sex and Gender Information Value Date Recorded Sex Assigned at Not on file 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:37 AM TUFTING MACHINE FIXER Gender Identity Not on file Sexual Orientation Not on file documented as of this encounter Plan of Treatment Not on file documented as of this encounter Visit Diagnoses Not on filedocumented in this encounter Care Teams Senior Application Software Engineer Relationship Specialty Start Date End Date Yumi Alexander DO PCP - General Family Practice 10/05/17 documented as of this encounter
--- OUTSIDE RECORDS SUMMARY | 2025-04-03 15:03 | XMS_ITS | Encounter Summary ---
Author Organization [facility] Address [address] [place] [address] Care Team Providers Care Director Of Product Development Name Role Phone Yumi Alexander DO Primary Care Provider +1- [phone] Encounter Details Date Type Department Care Team (Latest Contact Info) Description 04/28/1999 Outpatient Historical [facility] Breast [place] [address] [place] [address] [place] [phone] Nicole Watt MD NO ADDRESS ON FILE Other screening mammogram (Primary Dx) Social History Tobacco Use Types Packs/Day Years Used Date Smoking Tobacco: Never Assessed Comments Unknown Sex and Gender Information Value Date Recorded Sex Assigned at Not on file 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:37 AM STRAW BOSS Gender Identity Not on file Sexual Orientation Not on file documented as of this encounter Plan of Treatment Not on file documented as of this encounter Visit Diagnoses Diagnosis Other screening mammogram- Primary documented in this encounter Care Teams Director Of Product Development Relationship Specialty Start Date End Date Yumi Alexander DO PCP - General Family Practice 10/05/17 documented as of this encounter
--- OUTSIDE RECORDS SUMMARY | 2025-04-03 15:03 | XMS_ITS | Encounter Summary ---
Author Organization [facility] Address [address] [place] [address] Care Team Providers Care Academy Director Name Role Phone Yumi Alexander DO Primary Care Provider +1- [phone] Encounter Details Date Type Department Care Team (Late st Contact Info) Description 11/23/2007 Outpatient Historical [facility] Reg[facility] [address] [place] [address] [place] [address] Yaneli Flores MD [address] [place] [phone] Social History Tobacco Use Types Packs/Day Years Used Date Smoking Tobacco: Never Assessed Comments Unknown Sex and Gender Information Value Date Recorded Sex Assigned at Not on file 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:37 AM SMOKE CHASER Gender Identity Not on file Sexual Orientation Not on file documented as of this encounter Plan of Treatment Not on file documented as of this encounter Visit Diagnoses Not on filedocumented in this encounter Care Teams Academy Director Relationship Specialty Start Date End Date Yumi Alexander DO PCP - General Family Practice 10/05/17 documented as of this encounter
--- OUTSIDE RECORDS SUMMARY | 2025-04-03 15:03 | XMS_ITS | Encounter Summary ---
Author Organization [facility] Address [address] [place] [address] Care Team Providers Care Air Conditioning Unit Assembler Name Role Phone Yumi Alexander Primary Care Provider +1- [phone] Encounter Details Date Type Department Care Team (Latest Contact Info) Description 02/16/2008 Outpatient Historical [facility] Imaging Services-Reg[facility] [address] [place] [address] [place] [phone] Sd Constantino MD [address] [place] [phone] Abn Find-Body Struct NEC Social History Tobacco Use Types Packs/Day Years Used Date Smoking Tobacco: Never Assessed Comments Unknown Sex and Gender Information Value Date Recorded Sex Assigned at Not on file 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:37 AM DIE CAST DIE MAKER Gender Identity Not on file Sexual [...] By: Taryn Escamilla M.D. Date Signed: 02/23/08 [facility] Procedure Note Taryn Escamilla - 03/24/2008 CT [...] By: Taryn Escamilla M.D. Date Signed: 02/23/08 [facility] Sd Constantino MD CT ORDERABLES Final Result * POC CREATININE (02/23/2008 12:30 PM CDT) CREATININE POC 0.8 0.7 - 1.2 mg/dL [facility] Capillary blood specimen (specimen) 02/23/2008 12:30 PM CDT 02/23/2008 7:49 PM CDT Sd Constantino MD POINT OF CARE TESTING Final Result [facility] CLIA# [id number] [address] [place] [id number] documented in this encounter Visit Diagnoses Diagnosis Other nonspecific (abnormal) findings on radiological and other examinations of body structure documented in this encounter Care Teams Air Conditioning Unit Assembler Relationship Specialty Start Date End Date Yumi Alexander DO PCP - General Family Practice 10/05/17 documented as of this encounter
--- OUTSIDE RECORDS SUMMARY | 2025-04-03 15:03 | XMS_ITS | Encounter Summary ---
Author Organization [facility] Address [address] [place] [address] Care Team Providers Care Automatic Pad Making Machine Operator Name Role Phone Yumi Alexander DO Primary Care Provider +1- [phone] Encounter Details Date Type Department Care Team (Latest Contact Info) Description 12/31/2006 Outpatient Historical [facility] Medicine [address] [phone] Yaneli Flores MD [address] [place] [phone] Unspecified Backache (Primary Dx) Social History Tobacco Use Types Packs/Day Years Used Date Smoking Tobacco: Never Assessed Comments Unknown Sex and Gender Information Value Date Recorded Sex Assigned at Not on file 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:37 AM DIRECTOR MEDICAL AFFAIRS Gender Identity Not on file Sexual Orientation Not on file documented as of this encounter Plan of Treatment Not on file documented as of this encounter Visit Diagnoses Diagnosis Backache, unspecified- Primary documented in this encounter Care Teams Automatic Pad Making Machine Operator Relationship Specialty Start Date End Date Yumi Alexander DO PCP - General Family Practice 10/05/17 documented as of this encounter
--- OUTSIDE RECORDS SUMMARY | 2025-04-03 15:03 | XMS_ITS | Encounter Summary ---
Author Organization [facility] Address [address] [facility] Attn: Epic Prelude ADT [place] [address] Care Team Providers Care Capacity Planner Name Role Phone Yumi Alexander DO Primary Care Provider +1- [phone] Encounter Details Date Type Department Care Team (Late st Contact Info) Description 09/20/2001 Outpatient Historical Yaneli Flores MD [address] [place] [address] Social History Tobacco Use Types Packs/Day Years Used Date Smoking Tobacco: Never Assessed Comments Unknown Sex and Gender Information Value Date Recorded Sex Assigned at Not on file 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:37 AM GEM TECHNICIAN Gender Identity Not on file Sexual Orientation Not on file documented as of this encounter Plan of Treatment Not on file documented as of this encounter Visit Diagnoses Not on filedocumented in this encounter Care Teams Capacity Planner Relationship Specialty Start Date End Date Yumi Alexander DO PCP - General Family Practice 10/05/17 documented as of this encounter
--- OUTSIDE RECORDS SUMMARY | 2025-04-03 15:03 | XMS_ITS | Encounter Summary ---
Author Organization [facility] Address [address] [place] [address] Care Team Providers Care Tester Operator Name Role Phone Yumi Alexander DO Primary Care Provider +1- [phone] Encounter Details Date Type Department Care Team (Latest Contact Info) Description 05/05/2000 Outpatient Historical [facility] Josep Shine MD [address] [place] [address] Closed fracture of metacarpal bone(s), site unspecified (Primary Dx) Social History Tobacco Use Types Packs/Day Years Used Date Smoking Tobacco: Never Assessed Comments Unknown Sex and Gender Information Value Date Recorded Sex Assigned at Not on file 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:37 AM ELECTRICITY TRADER Gender Identity Not on file Sexual Orientation Not on file documented as of this encounter Plan of Treatment Not on file documented as of this encounter Visit Diagnoses Diagnosis Closed fracture of metacarpal bone(s), site unspecified- Primary documented in this encounter Care Teams Tester Operator Relationship Specialty Start Date End Date Yumi Alexander DO PCP - General Family Practice 10/05/17 documented as of this encounter
--- OUTSIDE RECORDS SUMMARY | 2025-04-03 15:03 | XMS_ITS | Encounter Summary ---
Author Organization [facility] Address [address] [facility] Attn: Epic Prelude ADT [place] [address] Care Team Providers Care Sole Dyer Name Role Phone Yumi Alexander DO Primary Care Provider +1- [phone] Encounter Details Date Type Department Care Team (Late st Contact Info) Description 05/05/2000 Outpatient Historical Josep Shine MD [address] [place] [address] Social History Tobacco Use Types Packs/Day Years Used Date Smoking Tobacco: Never Assessed Comments Unknown Sex and Gender Information Value Date Recorded Sex Assigned at Not on file 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:37 AM MAGNETIC PROSPECTING OPERATOR Gender Identity Not on file Sexual Orientation Not on file documented as of this encounter Plan of Treatment Not on file documented as of this encounter Visit Diagnoses Not on filedocumented in this encounter Care Teams Sole Dyer Relationship Specialty Start Date End Date Yumi Alexander DO PCP - General Family Practice 10/05/17 documented as of this encounter
--- OUTSIDE RECORDS SUMMARY | 2025-04-03 15:03 | XMS_ITS | Encounter Summary ---
Author Organization [facility] Address [address] [place] [address] Care Team Providers Care Stripper Printed Circuit Boards Name Role Phone Yumi Alexander DO Primary Care Provider +1- [phone] Encounter Details Date Type Department Care Team (Latest Contact Info) Description 09/19/2001 Outpatient Historical [facility] Medicine [address] [phone] Yaneli Flores MD [address] [place] [phone] PROLAPSE OF VAGINAL WALL (Primary Dx) Social History Tobacco Use Types Packs/Day Years Used Date Smoking Tobacco: Never Assessed Comments Unknown Sex and Gender Information Value Date Recorded Sex Assigned at Not on file 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
--- OUTSIDE RECORDS SUMMARY | 2025-04-03 15:03 | XMS_ITS | Encounter Summary ---
Author Organization [facility] Address [address] [facility] Attn: Epic Prelude ADT [place] [address] Care Team Providers Care Test Tech Name Role Phone Yumi Alexander Primary Care Provider +1- [phone] Encounter Details Date Type Department Care Team (Late st Contact Info) Description 09/21/2006 Outpatient Historical Leif Abraham MD NO ADDRESS ON FILE Social History Tobacco Use Types Packs/Day Years Used Date Smoking Tobacco: Never Assessed Comments Unknown Sex and Gender Information Value Date Recorded Sex Assigned at Not on file 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:37 AM ASSOCIATE JUSTICE Gender Identity Not on file Sexual Orientation Not on file documented as of this encounter Plan of Treatment Not on file documented as of this encounter Procedures Procedure Name Priority Date/Time Associated Diagnosis Comments LIPID PANEL Routine 09/21/2006 9:15 AM ASSOCIATE JUSTICE documented in this encounter Results * (ABNORMAL) LIPID PANEL (09/21/2006 9:15 AM ASSOCIATE JUSTICE) CALCULATED TOTAL CHOLESTEROL TO HDL RATIO 2.76(L) 3.27 - 4.44 INTERFACE SYSTEM CHOLESTEROL 199 75 - 200 mg/dL INTERFACE SYSTEM GLUCOSE 68(L) 70 - 110 mg/dL INTERFACE SYSTEM HDL 72(H) 40 - 60 mg/dL INTERFACE SYSTEM CALCULATED LDL CHOLESTEROL 106 0 - 130 mg/dL INTERFACE SYSTEM TRIGLYCERIDE 107 0 - 200 mg/dL INTERFACE SYSTEM 09/21/2006 9:15 AM ASSOCIATE JUSTICE Leif Abraham MD CHEMISTRY ORDERABLES Edited INTERFACE SYSTEM Refer to clinic/hospital department documented in this encounter Visit Diagnoses Not on filedocumented in this encounter Care Teams Test Tech Relationship Specialty Start Date End Date Yumi Alexander DO PCP - General Family Practice 10/05/17 documented as of this encounter
--- OUTSIDE RECORDS SUMMARY | 2025-04-03 15:04 | XMS_ITS | Encounter Summary ---
Author Organization [facility] Address [address] [place] [address] Care Team Providers Care Plant Breeder Name Role Phone Yumi Alexander DO Primary Care Provider +1- [phone] Encounter Details Date Type Department Care Team (Latest Contact Info) Description 05/27/2005 Outpatient Historical [facility] Podiatry-[facility] [place] [address] [place] [address] Toni Morris, DPM [address] [place] [address] CONTUSION OF TOE (Primary Dx); FX PHALANX, FOOT-CLOSED Social History Tobacco Use Types Packs/Day Years Used Date Smoking Tobacco: Never Assessed Comments Unknown Sex and Gender Information Value Date Recorded Sex Assigned at Not on file 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:37 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
--- OUTSIDE RECORDS SUMMARY | 2025-04-03 15:04 | XMS_ITS | Encounter Summary ---
Author Organization [facility] Address [address] [place] [address] Care Team Providers Care Field Crew Chief Name Role Phone Yumi Alexander DO Primary Care Provider +1- [phone] Encounter Details Date Type Department Care Team (Latest Contact Info) Description 12/15/2002 Outpatient Historical [address] [phone] Shanda Duong MD [address] [place] [address] SKIN DISORDER NOS (Primary Dx); PALPITATIONS Social History Tobacco Use Types Packs/Day Years Used Date Smoking Tobacco: Never Assessed Comments Unknown Sex and Gender Information Value Date Recorded Sex Assigned at Not on file 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
--- OUTSIDE RECORDS SUMMARY | 2025-04-03 15:04 | XMS_ITS | Encounter Summary ---
Author Organization [facility] Address [address] [place] [address] Care Team Providers Care Pilot Plant Research Technician Name Role Phone Benjamin Yumi Manisha VALENCIA Primary Care Provider +1- [phone] Reason for Referral * Outpatient Services (Routine) - Closed Specialty Diagnoses / Procedures Referred By Ally matias Referred To Contact Radiology Diagnoses Other screening mammogram Procedures MAMMO DIGITAL SCREEN BILAT Chantal Ahmadi FNP [address], [place] [address] Phone: tel: fax: [facility] [place] [address] [place] [address] Phone: tel: fax: Referral ID Status Reason Start Date Expiration Date Visits Re quested Visits Authorized [id number] Closed 01/29/2011 07/28/2011 1 1 Encounter Details Date Type Department Care Team (Late st Contact Info) Description 01/29/2011 Ancillary Orders [facility] Regis Crow [place] [address] 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 Chantal Ahmadi OXYGEN SYSTEM TESTER MAMMO ORDERABLES Final Result documented in this encounter Visit Diagnoses Diagnosis Other screening mammogram Other screening mammogram documented in this encounter Care Teams Pilot Plant Research Technician Relationship Specialty Start Date End Date Yumi Alexander DO PCP - General Family Practice 10/05/17 documented as of this encounter
--- OUTSIDE RECORDS SUMMARY | 2025-04-03 15:04 | XMS_ITS | Encounter Summary ---
Author Organization [facility] Address [address] [place] [address] Care Team Providers Care Audio Visual Tech Name Role Phone Yumi Alexander DO Primary Care Provider +1- [phone] Encounter Details Date Type Department Care Team (Latest Contact Info) Description 12/15/2002 Outpatient Historical [employer] [facility] [place] [address] [place] [phone] Shanda Duong MD [address] [place] [address] SEBORRHEIC KERATOSIS INFLAMED (Primary Dx) Social History Tobacco Use Types Packs/Day Years Used Date Smoking Tobacco: Never Assessed Comments Unknown Sex and Gender Information Value Date Recorded Sex Assigned at Not on file 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:37 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
--- OUTSIDE RECORDS SUMMARY | 2025-04-03 15:04 | XMS_ITS | Encounter Summary ---
Author Organization [facility] Address [address] [place] [address] Care Team Providers Care Saturator Tender Name Role Phone Yumi Alexander DO Primary Care Provider +1- [phone] Encounter Details Date Type Department Care Team (Latest Contact Info) Description 03/13/2002 Outpatient Historical [address], [place] [address] Sd Constantino MD [address] [place] [phone] CELLULITIS OF LEG (Primary Dx) Social History Tobacco Use Types Packs/Day Years Used Date Smoking Tobacco: Never Assessed Comments Unknown Sex and Gender Information Value Date Recorded Sex Assigned at Not on file 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:37 AM BARREL MAKER Gender Identity Not on file Sexual Orientation Not on file documented as of this encounter Plan of Treatment Not on file documented as of this encounter Visit Diagnoses Diagnosis Cellulitis and abscess of leg, except foot- Primary documented in this encounter Care Teams Saturator Tender Relationship Specialty Start Date End Date Yumi Alexander DO PCP - General Family Practice 10/05/17 documented as of this encounter
--- OUTSIDE RECORDS SUMMARY | 2025-04-03 15:04 | XMS_ITS | Encounter Summary ---
Author Organization [facility] Address [address] [place] [address] Care Team Providers Care Doctor Naturopathic Name Role Phone Yumi Alexander DO Primary Care Provider +1- [phone] Encounter Details Date Type Department Care Team (Late st Contact Info) Description 01/29/2011 Ancillary Orders [facility] Regis Crow [place] [address] [place] [address] Sd Constantino MD [address], [place] [phone] Other screening mammogram Social History Tobacco Use Types Packs/Day Years Used Date Smoking Tobacco: Never Alcohol Use Standard Drinks/Week Comments No 0 (1 standard drink = 0.6 oz pur e alcohol) Comments No Sex and Gender Information Value Date Recorded Sex Assigned at Not on file 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:37 AM CARDIOLOGY TEACHER Gender Identity Not on file Sexual Orientation Not on file documented as of this encounter Plan of Treatment Not on file documented as of this encounter Visit Diagnoses Diagnosis Other screening mammogram documented in this encounter Care Teams Doctor Naturopathic Relationship Specialty Start Date End Date Yumi Alexander DO PCP - General Family Practice 10/05/17 documented as of this encounter
--- OUTSIDE RECORDS SUMMARY | 2025-04-03 15:04 | XMS_ITS | Encounter Summary ---
Author Organization [facility] Address [address] [place] [address] Care Team Providers Care Car Scrubber Name Role Phone Yumi Alexander DO Primary Care Provider +1- [phone] Encounter Details Date Type Department Care Team (Latest Contact Info) Description 08/12/2004 Outpatient Historical [facility] Breast [place] [address] [place] [address] [place] [phone] Nicole Watt MD NO ADDRESS ON FILE SCREENING MAMM-MAILG NEOPL-OTHER (Primary Dx) Social History Tobacco Use Types Packs/Day Years Used Date Smoking Tobacco: Never Assessed Comments Unknown Sex and Gender Information Value Date Recorded Sex Assigned at Not on file 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:37 AM CASE FITTER Gender Identity Not on file Sexual Orientation Not on file documented as of this encounter Plan of Treatment Not on file documented as of this encounter Visit Diagnoses Diagnosis Other screening mammogram- Primary documented in this encounter Care Teams Car Scrubber Relationship Specialty Start Date End Date Yumi Alexander DO PCP - General Family Practice 10/05/17 documented as of this encounter
--- OUTSIDE RECORDS SUMMARY | 2025-04-03 15:04 | XMS_ITS | Encounter Summary ---
Author Organization [facility] Address [address] [place] [address] Care Team Providers Care Iron Installer Name Role Phone Yumi Alexander DO Primary Care Provider +1- [phone] Encounter Details Date Type Department Care Team (Latest Contact Info) Description 12/22/2002 Outpatient Historical [address] [phone] Yaneli Flores MD [address] [place] [address] ATTEN-SURG DRESSNG/SUTUR (Primary Dx); Inflamed seborr keratos Social History Tobacco Use Types Packs/Day Years Used Date Smoking Tobacco: Never Assessed Comments Unknown Sex and Gender Information Value Date Recorded Sex Assigned at Not on file 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
--- OUTSIDE RECORDS SUMMARY | 2025-04-03 15:04 | XMS_ITS | Encounter Summary ---
Author Organization [facility] Address [address] [place] [address] Care Team Providers Care Nuclear Pharmacist Name Role Phone Yumi Alexander DO Primary Care Provider +1- [phone] Encounter Details Date Type Department Care Team (Latest Contact Info) Description 11/05/2004 Outpatient Historical [address] [phone] Sd Constantino MD [address] [place] [phone] SPRAIN NOS (Primary Dx) Social History Tobacco Use Types Packs/Day Years Used Date Smoking Tobacco: Never Assessed Comments Unknown Sex and Gender Information Value Date Recorded Sex Assigned at Not on file 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:37 AM IT SECURITY CONSULTING DIRECTOR Gender Identity Not on file Sexual Orientation Not on file documented as of this encounter Plan of Treatment Not on file documented as of this encounter Visit Diagnoses Diagnosis Unspecified site of sprain and strain- Primary documented in this encounter Care Teams Nuclear Pharmacist Relationship Specialty Start Date End Date Yumi Alexander DO PCP - General Family Practice 10/05/17 documented as of this encounter
--- OUTSIDE RECORDS SUMMARY | 2025-04-03 15:04 | XMS_ITS | Encounter Summary ---
Author Organization [facility] Address [address] [place] [address] Care Team Providers Care Cold Food Packer Name Role Phone Yumi Alexander DO Primary Care Provider +1- [phone] Encounter Details Date Type Department Care Team (Latest Contact Info) Description 08/12/2004 Outpatient Historical [facility] Breast [place] [address] [place] [address] [place] [phone] Yaneli Flores MD [address] [place] [phone] SCREENING MAMM-MAILG NEOPL-OTHER (Primary Dx) Social History Tobacco Use Types Packs/Day Years Used Date Smoking Tobacco: Never Assessed Comments Unknown Sex and Gender Information Value Date Recorded Sex Assigned at Not on file 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:37 AM SLAG SKIMMER Gender Identity Not on file Sexual Orientation Not on file documented as of this encounter Plan of Treatment Not on file documented as of this encounter Visit Diagnoses Diagnosis Other screening mammogram- Primary documented in this encounter Care Teams Cold Food Packer Relationship Specialty Start Date End Date Yumi Alexander DO PCP - General Family Practice 10/05/17 documented as of this encounter
--- OUTSIDE RECORDS SUMMARY | 2025-04-03 15:04 | XMS_ITS | Encounter Summary ---
Author Organization [facility] Address [address] [place] [address] Care Team Providers Care Screen Printing Supervisor Name Role Phone Yumi Alexander DO Primary Care Provider +1- [phone] Encounter Details Date Type Department Care Team (Latest Contact Info) Description 01/07/2004 Outpatient Historical [address] [phone] Shanda Duong MD [address] [place] [address] OPEN WOUND OF FINGER (Primary Dx) Social History Tobacco Use Types Packs/Day Years Used Date Smoking Tobacco: Never Assessed Comments Unknown Sex and Gender Information Value Date Recorded Sex Assigned at Not on file 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:37 AM CALL OUT OPERATOR Gender Identity Not on file Sexual Orientation Not on file documented as of this encounter Plan of Treatment Not on file documented as of this encounter Visit Diagnoses Diagnosis Open wound of finger(s) , without mention of complication- Primary documented in this encounter Care Teams Screen Printing Supervisor Relationship Specialty Start Date End Date Yumi Alexander DO PCP - General Family Practice 10/05/17 documented as of this encounter
--- OUTSIDE RECORDS SUMMARY | 2025-04-03 15:04 | XMS_ITS | Encounter Summary ---
Author Organization [facility] Address [address] [place] [address] Care Team Providers Care Cage Manager Name Role Phone Yumi Alexander DO Primary Care Provider +1- [phone] Encounter Details Date Type Department Care Team (Latest Contact Info) Description 04/14/2004 Outpatient Historical [address] [phone] Yaneli Flores MD [address] [place] [phone] OTALGIA NOS (Primary Dx); HEARING LOSS NOS Social History Tobacco Use Types Packs/Day Years Used Date Smoking Tobacco: Never Assessed Comments Unknown Sex and Gender Information Value Date Recorded Sex Assigned at Not on file 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:37 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
--- OUTSIDE RECORDS SUMMARY | 2025-04-03 15:04 | XMS_ITS | Encounter Summary ---
Author Organization [facility] Address [address] [place] [address] Care Team Providers Care Grand Scribe Name Role Phone Yumi Alexander DO Primary Care Provider +1- [phone] Encounter Details Date Type Department Care Team (Latest Contact Info) Description 04/10/2004 Outpatient Historical [address] [phone] Yaneli Flores MD [address] [place] [phone] OTITIS MEDIA NOS (Primary Dx) Social History Tobacco Use Types Packs/Day Years Used Date Smoking Tobacco: Never Assessed Comments Unknown Sex and Gender Information Value Date Recorded Sex Assigned at Not on file 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:37 AM DESTINATION SPECIALIST Gender Identity Not on file Sexual Orientation Not on file documented as of this encounter Plan of Treatment Not on file documented as of this encounter Visit Diagnoses Diagnosis Unspecified otitis media- Primary documented in this encounter Care Teams Grand Scribe Relationship Specialty Start Date End Date Yumi Alexander DO PCP - General Family Practice 10/05/17 documented as of this encounter
--- OUTSIDE RECORDS SUMMARY | 2025-04-03 15:04 | XMS_ITS | Encounter Summary ---
Author Organization [facility] Address [address] [place] [address] Care Team Providers Care Automotive Porter Name Role Phone Yumi Alexander DO Primary Care Provider +1- [phone] Encounter Details Date Type Department Care Team (Latest Contact Info) Description 08/20/2004 Outpatient Historical [address] [phone] Sd Constantino MD [address] [place] [phone] Pain in limb (Primary Dx) Social History Tobacco Use Types Packs/Day Years Used Date Smoking Tobacco: Never Assessed Comments Unknown Sex and Gender Information Value Date Recorded Sex Assigned at Not on file 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:37 AM CLINICAL PSYCHOLOGY TEACHER Gender Identity Not on file Sexual Orientation Not on file documented as of this encounter Plan of Treatment Not on file documented as of this encounter Visit Diagnoses Diagnosis Pain in limb- Primary Pain in soft tissues of limb documented in this encounter Care Teams Automotive Porter Relationship Specialty Start Date End Date Yumi Alexander DO PCP - General Family Practice 10/05/17 documented as of this encounter
--- OUTSIDE RECORDS SUMMARY | 2025-04-03 15:04 | XMS_ITS | Encounter Summary ---
Author Organization [facility] Address [address] [place] [address] Care Team Providers Care Directional Bore Operator Name Role Phone Yumi Alexander DO Primary Care Provider +1- [phone] Encounter Details Date Type Department Care Team (Latest Contact Info) Description 04/27/2005 Outpatient Historical [address] [phone] Sd Constantino MD [address] [place] [phone] CONTUSION OF FOOT (Primary Dx) Social History Tobacco Use Types Packs/Day Years Used Date Smoking Tobacco: Never Assessed Comments Unknown Sex and Gender Information Value Date Recorded Sex Assigned at Not on file 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:37 AM DIRECTOR IMAGING Gender Identity Not on file Sexual Orientation Not on file documented as of this encounter Plan of Treatment Not on file documented as of this encounter Visit Diagnoses Diagnosis Contusion of foot- Primary documented in this encounter Care Teams Directional Bore Operator Relationship Specialty Start Date End Date Yumi Alexander DO PCP - General Family Practice 10/05/17 documented as of this encounter
--- OUTSIDE RECORDS SUMMARY | 2025-04-03 15:04 | XMS_ITS | Encounter Summary ---
Author Organization [facility] Address [address] [place] [address] Care Team Providers Care Reel Repairer Name Role Phone Yumi Alexander DO Primary Care Provider +1- [phone] Encounter Details Date Type Department Care Team (Latest Contact Info) Description 10/22/2003 Outpatient Historical [facility] [address] [phone] Sd Constantino MD [address] [place] [phone] CELLULITIS OF FACE (Primary Dx) Social History Tobacco Use Types Packs/Day Years Used Date Smoking Tobacco: Never Assessed Comments Unknown Sex and Gender Information Value Date Recorded Sex Assigned at Not on file 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:37 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
--- OUTSIDE RECORDS SUMMARY | 2025-04-03 15:04 | XMS_ITS | Encounter Summary ---
Author Organization [facility] Address [address] [place] [address] Care Team Providers Care Inspector Wire Rope Name Role Phone Yumi Alexander DO Primary Care Provider +1- [phone] Encounter Details Date Type Department Care Team (Latest Contact Info) Description 03/08/2002 Outpatient Historical [facility] Medicine [address] [phone] Sd Constantino MD [address] [place] [phone] OPEN WOUND KNEE/LEG/ANKLE (Primary Dx) Social History Tobacco Use Types Packs/Day Years Used Date Smoking Tobacco: Never Assessed Comments Unknown Sex and Gender Information Value Date Recorded Sex Assigned at Not on file 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:37 AM CHIEF DESIGN ENGINEER Gender Identity Not on file Sexual Orientation Not on file documented as of this encounter Plan of Treatment Not on file documented as of this encounter Visit Diagnoses Diagnosis Open wound of knee, leg (except thigh), and ankle, without mention of complication- Primary documented in this encounter Care Teams Inspector Wire Rope Relationship Specialty Start Date End Date Yumi Alexander DO PCP - General Family Practice 10/05/17 documented as of this encounter
--- OUTSIDE RECORDS SUMMARY | 2025-04-03 15:04 | XMS_ITS | Encounter Summary ---
Author Organization [facility] Address [address] [place] [address] Care Team Providers Care Electrician Supervisor Name Role Phone Yumi Alexander DO Primary Care Provider +1- [phone] Encounter Details Date Type Department Care Team (Late st Contact Info) Description 08/10/2003 Outpatient Historical [facility] [place] [address] [place] [phone] Coby Villa MD NO ADDRESS ON FILE SCREENING MAMM-MAILG NEOPL-OTHER (Primary Dx) Social History Tobacco Use Types Packs/Day Years Used Date Smoking Tobacco: Never Assessed Comments Unknown Sex and Gender Information Value Date Recorded Sex Assigned at Not on file 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
--- OUTSIDE RECORDS SUMMARY | 2025-04-03 15:04 | XMS_ITS | Encounter Summary ---
Author Organization [facility] Address [address] [place] [address] Care Team Providers Care Purchasing And Claims Supervisor Name Role Phone Yumi Alexander Primary Care Provider +1- [phone] Encounter Details Date Type Department Care Team (Late st Contact Info) Description 12/04/2009 Ancillary Orders [address] [phone] Yaneli Flores MD [address] [place] [phone] Other Screening Mammogram Social History Tobacco Use Types Packs/Day Years Used Date Smoking Tobacco: Never Alcohol Use Standard Drinks/Week Comments No 0 (1 standard drink = 0.6 oz pur e alcohol) Comments No Sex and Gender Information Value Date Recorded Sex Assigned at Not on file 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
--- OUTSIDE RECORDS SUMMARY | 2025-04-03 15:04 | XMS_ITS | Encounter Summary ---
Author Organization [facility] Address [address] [place] [address] Care Team Providers Care Honest John Rocket Crew Member Name Role Phone Yumi Alexander DO Primary Care Provider +1- [phone] Encounter Details Date Type Department Care Team (Late st Contact Info) Description 02/09/2003 Outpatient Historical [facility] [phone] Jazzy Pugh MD [address] [place] [phone] UTERVAGINAL PROLAPSE NOS (Primary Dx) Social History Tobacco Use Types Packs/Day Years Used Date Smoking Tobacco: Never Assessed Comments Unknown Sex and Gender Information Value Date Recorded Sex Assigned at Not on file 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
--- OUTSIDE RECORDS SUMMARY | 2025-04-03 15:04 | XMS_ITS | Encounter Summary ---
Author Organization [facility] Address [address] [place] [address] Care Team Providers Care Etl Data Architect Name Role Phone Yumi Alexander DO Primary Care Provider +1- [phone] Encounter Details Date Type Department Care Team (Latest Contact Info) Description 08/04/2005 Outpatient Historical [address] [phone] Yaneli Flores MD [address] [place] [phone] GENITAL WARTS NOS (Primary Dx) Social History Tobacco Use Types Packs/Day Years Used Date Smoking Tobacco: Never Assessed Comments Unknown Sex and Gender Information Value Date Recorded Sex Assigned at Not on file 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
--- OUTSIDE RECORDS SUMMARY | 2025-04-03 15:04 | XMS_ITS | Encounter Summary ---
Author Organization [facility] Address [address] [place] [address] Care Team Providers Care High School Science Tutor Name Role Phone Yumi Alexander DO Primary Care Provider +1- [phone] Encounter Details Date Type Department Care Team (Latest Contact Info) Description 05/27/2005 Outpatient Historical [facility] 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
--- OUTSIDE RECORDS SUMMARY | 2025-04-03 15:04 | XMS_ITS | Encounter Summary ---
Author Organization [facility] Address [address] [place] [address] Care Team Providers Care Cardiac Technician Name Role Phone Yumi Alexander DO Primary Care Provider +1- [phone] Encounter Details Date Type Department Care Team (Latest Contact Info) Description 03/18/2005 Outpatient Historical [facility] [address] [place] [phone] Joey Still MD NO ADDRESS ON FILE DISEASES OF NAIL NEC (Primary Dx); Inflamed seborr keratos Social History Tobacco Use Types Packs/Day Years Used Date Smoking Tobacco: Never Assessed Comments Unknown Sex and Gender Information Value Date Recorded Sex Assigned at Not on file 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
--- OUTSIDE RECORDS SUMMARY | 2025-04-03 15:04 | XMS_ITS | Encounter Summary ---
Author Organization [facility] Address [address] [place] [address] Care Team Providers Care Commercial Property Manager Name Role Phone Yumi Alexander DO Primary Care Provider +1- [phone] Encounter Details Date Type Department Care Team (Latest Contact Info) Description 04/04/2004 Outpatient Historical [address] [phone] Yaneli Flores MD [address] [place] [phone] OTITIS MEDIA NOS (Primary Dx); ACUTE FRONTAL SINUSITIS Social History Tobacco Use Types Packs/Day Years Used Date Smoking Tobacco: Never Assessed Comments Unknown Sex and Gender Information Value Date Recorded Sex Assigned at Not on file 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
--- OUTSIDE RECORDS SUMMARY | 2025-04-03 15:04 | XMS_ITS | Encounter Summary ---
Author Organization [facility] Address [address] [facility] Attn: [place] [address] Care Team Providers Care Project Coordinator Name Role Phone Yumi Alexander DO Primary Care Provider +1- [phone] Encounter Details Date Type Department Care Team (Late st Contact Info) Description 04/20/2002 Outpatient Historical Tyler Rey MD [address] [place] [address] Social History Tobacco Use Types Packs/Day Years Used Date Smoking Tobacco: Never Assessed Comments Unknown Sex and Gender Information Value Date Recorded Sex Assigned at Not on file 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:37 AM LEGAL FILE CLERK Gender Identity Not on file Sexual Orientation Not on file documented as of this encounter Plan of Treatment Not on file documented as of this encounter Visit Diagnoses Not on filedocumented in this encounter Care Teams Project Coordinator Relationship Specialty Start Date End Date Yumi Alexander DO PCP - General Family Practice 10/05/17 documented as of this encounter
--- OUTSIDE RECORDS SUMMARY | 2025-04-03 15:04 | XMS_ITS | Encounter Summary ---
Author Organization [facility] Address [address] [place] [address] Care Team Providers Care Occupational Hygienist Name Role Phone Yumi Alexander DO Primary Care Provider +1- [phone] Encounter Details Date Type Department Care Team (Latest Contact Info) Description 08/11/2004 Outpatient Historical [facility] Medicine [address] [phone] Yaneli Flores MD [address] [place] [phone] CONTUSION OF FOOT (Primary Dx) Social History Tobacco Use Types Packs/Day Years Used Date Smoking Tobacco: Never Assessed Comments Unknown Sex and Gender Information Value Date Recorded Sex Assigned at Not on file 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
--- OUTSIDE RECORDS SUMMARY | 2025-04-03 15:04 | XMS_ITS | Encounter Summary ---
Author Organization [facility] Address [address] [place] [address] Care Team Providers Care Stock Associate Name Role Phone Yumi Alexander DO Primary Care Provider +1- [phone] Encounter Details Date Type Department Care Team (Latest Contact Info) Description 12/04/2004 Outpatient Historical [facility] Medicine [address] [phone] Yaneli Flores MD [address] [place] [phone] DERMATOPHYTOSIS OF NAIL (Primary Dx) Social History Tobacco Use Types Packs/Day Years Used Date Smoking Tobacco: Never Assessed Comments Unknown Sex and Gender Information Value Date Recorded Sex Assigned at Not on file 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
--- OUTSIDE RECORDS SUMMARY | 2025-04-03 15:04 | XMS_ITS | Encounter Summary ---
Author Organization [facility] Address [address] [place] [address] Care Team Providers Care Gas Meter Mechanic Name Role Phone Yumi Alexander DO Primary Care Provider +1- [phone] Encounter Details Date Type Department Care Team (Late st Contact Info) Description 04/28/2005 Outpatient Historical [facility] [place] [address] [place] [phone] Social History Tobacco Use Types Packs/Day Years Used Date Smoking Tobacco: Never Assessed Comments Unknown Sex and Gender Information Value Date Recorded Sex Assigned at Not on file 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
--- OUTSIDE RECORDS SUMMARY | 2025-04-03 15:04 | XMS_ITS | Encounter Summary ---
Author Organization [facility] Address [address] [place] [address] Care Team Providers Care Coin Collector Name Role Phone Yumi Alexander DO Primary Care Provider +1- [phone] Encounter Details Date Type Department Care Team (Latest Contact Info) Description 01/05/2005 Outpatient Historical [address] [phone] Sd Constantino MD [address] [place] [phone] ACUTE FRONTAL SINUSITIS (Primary Dx) Social History Tobacco Use Types Packs/Day Years Used Date Smoking Tobacco: Never Assessed Comments Unknown Sex and Gender Information Value Date Recorded Sex Assigned at Not on file 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
--- OUTSIDE RECORDS SUMMARY | 2025-04-03 15:04 | XMS_ITS | Clinical Summary ---
Author Organization [facility] Address [address] [place] [address] Care Team Providers Care Mail Handler Name Role Phone Yumi Alexander Primary Care Provider +1- [phone] Allergies No known active allergies Medications Cholecalciferol [...] on file 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:37 AM CENSUS CLERK Gender Identity Not on file Sexual [...] (#1) 2025 Medical Devices Implanted Type Area Women'S Health Care Nurse Practitioner Device Identifier Shelf Expiration Date Model / Serial / Lot Lens Io Tecnis 1pc 26.5 [id number] - [id number] Implanted:Qty: 1 on 11/08/2017 by Segun Boudreaux DO at [facility] Left: Eye [employer] 06/13/2021 [id number] / [id number] / N/A Lens Io Tecnis 1pc 25.5 [id number] - [id number] Implanted:Qty: 1 on 11/22/2017 by Segun Boudreaux DO at [facility] Right: Eye [employer] 05/12/2021 [id number] / [id number] / Procedures Procedure Name Priority Date/Time Associated [...] approximately two years. jaw - uploaded from [employer] - Narrative 11/06/2008 5:26 PM CDT DEXA [...] Advance Directives For more information, please contact: [phone] Documents on File Type Date Recorded Patient Market Relationship Manager Expl anation Advance Directive POA 07/19/2014 11:06 [...] 10:08 AM 02/15/2014 11:07 AM Care Teams Mail Handler Relationship Specialty Start Date End Date Yumi Alexander DO PCP - General Family Practice 10/05/17
--- OUTSIDE RECORDS SUMMARY | 2025-04-03 15:04 | XMS_ITS | Encounter Summary ---
Author Organization [facility] Address [address] [place] [address] Care Team Providers Care Seconds Inspector Name Role Phone Yumi Alexander DO Primary Care Provider +1- [phone] Encounter Details Date Type Department Care Team (Latest Contact Info) Description 08/27/2005 Outpatient Historical [address] [phone] Vero Li MD [facility] [place] [address] ACUTE FRONTAL SINUSITIS (Primary Dx); DERMATOPHYTOSIS OF NAIL Social History Tobacco Use Types Packs/Day Years Used Date Smoking Tobacco: Never Assessed Comments Unknown Sex and Gender Information Value Date Recorded Sex Assigned at Not on file 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
--- OUTSIDE RECORDS SUMMARY | 2025-04-03 15:04 | XMS_ITS | Encounter Summary ---
Author Organization [facility] Address [address] [place] [address] Care Team Providers Care Acid Pumper Name Role Phone Yumi Alexander DO Primary Care Provider +1- [phone] Encounter Details Date Type Department Care Team (Late st Contact Info) Description 03/13/2005 Outpatient Historical [facility] OBGYN-[address] [address] Jazzy Pugh MD [address] [place] [phone] UTERVAGINAL PROLAPSE NOS (Primary Dx) Social History Tobacco Use Types Packs/Day Years Used Date Smoking Tobacco: Never Assessed Comments Unknown Sex and Gender Information Value Date Recorded Sex Assigned at Not on file 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
--- OUTSIDE RECORDS SUMMARY | 2025-04-03 15:04 | XMS_ITS | Encounter Summary ---
Author Organization [facility] Address [address] [place] [address] Care Team Providers Care Terrazzo Layer Helper Name Role Phone Yumi Alexander DO Primary Care Provider +1- [phone] Encounter Details Date Type Department Care Team (Late st Contact Info) Description 04/17/2004 Outpatient Historical [facility] Ear, Nose and Throat 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
--- OUTSIDE RECORDS SUMMARY | 2025-04-03 15:04 | XMS_ITS | Encounter Summary ---
Author Organization [facility] Address [address] [place] [address] Care Team Providers Care Tag Machine Operator Name Role Phone Yumi Alexander DO Primary Care Provider +1- [phone] Encounter Details Date Type Department Care Team (Latest Contact Info) Description 05/20/2005 Outpatient Historical [address] [phone] Sd Constantino MD [address] [place] [phone] CONTUSION OF TOE (Primary Dx) Social History Tobacco Use Types Packs/Day Years Used Date Smoking Tobacco: Never Assessed Comments Unknown Sex and Gender Information Value Date Recorded Sex Assigned at Not on file 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
--- OUTSIDE RECORDS SUMMARY | 2025-04-03 15:04 | XMS_ITS | Encounter Summary ---
Author Organization [facility] Address [address] [place] [address] Care Team Providers Care Rotary Drill Operator Name Role Phone Yumi Alexander DO Primary Care Provider +1- [phone] Encounter Details Date Type Department Care Team (Latest Contact Info) Description 02/27/2005 Outpatient Historical [facility] Medicine [address] [phone] Yaneli Flores MD [address] [place] [phone] CYSTOCELE, MIDLINE (Primary Dx); DISEASES OF NAIL NEC; PAPERBOARD BOX MAKER MARITAL/PARTNR PROBLM NOS Social History Tobacco Use Types Packs/Day Years Used Date Smoking Tobacco: Never Assessed Comments Unknown Sex and Gender Information Value Date Recorded Sex Assigned at Not on file 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
--- OUTSIDE RECORDS SUMMARY | 2025-04-03 15:04 | XMS_ITS | Encounter Summary ---
Author Organization [facility] Address [address] [place] [address] Care Team Providers Care Talent Development Director Name Role Phone Yumi Alexander DO Primary Care Provider +1- [phone] Encounter Details Date Type Department Care Team (Late st Contact Info) Description 04/23/2005 Outpatient Historical [facility] OBGYN-[address] [address] Jazzy Pugh MD [address] [place] [phone] UTERVAGINAL PROLAPSE NOS (Primary Dx) Social History Tobacco Use Types Packs/Day Years Used Date Smoking Tobacco: Never Assessed Comments Unknown Sex and Gender Information Value Date Recorded Sex Assigned at Not on file 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
--- OUTSIDE RECORDS SUMMARY | 2025-04-03 15:04 | XMS_ITS | Encounter Summary ---
Author Organization [facility] Address [address] [place] [address] Care Team Providers Care Primer Inspector Name Role Phone Yumi Alexander DO Primary Care Provider +1- [phone] Encounter Details Date Type Department Care Team (Latest Contact Info) Description 04/17/2004 Outpatient Historical [facility] Ear, Nose and Throat [address] [place] [address] [place] [address] Reji Garcia MD [address] [address] CHR NONSUP OM NOS/NEC (Primary Dx) Social History Tobacco Use Types Packs/Day Years Used Date Smoking Tobacco: Never Assessed Comments Unknown Sex and Gender Information Value Date Recorded Sex Assigned at Not on file 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:37 AM PBX MANAGER Gender Identity Not on file Sexual Orientation Not on file documented as of this encounter Plan of Treatment Not on file documented as of this encounter Visit Diagnoses Diagnosis Other and unspecified chronic nonsuppurative otitis media- Primary documented in this encounter Care Teams Primer Inspector Relationship Specialty Start Date End Date Yumi Alexander DO PCP - General Family Practice 10/05/17 documented as of this encounter
--- OUTSIDE RECORDS SUMMARY | 2025-04-03 15:04 | XMS_ITS | Encounter Summary ---
Author Organization [facility] Address [address] [place] [address] Care Team Providers Care Guidance Adviser Name Role Phone Yumi Alexander DO Primary Care Provider +1- [phone] Encounter Details Date Type Department Care Team (Latest Contact Info) Description 10/17/2003 Outpatient Historical [address] [phone] Shanda Duong MD [address] [place] [address] NAUSEA ALONE (Primary Dx); HEARTBURN; ALLERGY, UNSPECIFIED Social History Tobacco Use Types Packs/Day Years Used Date Smoking Tobacco: Never Assessed Comments Unknown Sex and Gender Information Value Date Recorded Sex Assigned at Not on file 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
--- OUTSIDE RECORDS SUMMARY | 2025-04-03 15:04 | XMS_ITS | Encounter Summary ---
Author Organization [facility] Address [address] [place] [address] Care Team Providers Care Open Hearth Helper Name Role Phone Yumi Alexander DO Primary Care Provider +1- [phone] Encounter Details Date Type Department Care Team (Latest Contact Info) Description 08/08/2002 Outpatient Historical [facility] Breast Center [address] [place] [address] [place] [phone] Yaneli Flores MD [address] [place] [phone] SCREENING MAMM-MAILG NEOPL-OTHER (Primary Dx) Social History Tobacco Use Types Packs/Day Years Used Date Smoking Tobacco: Never Assessed Comments Unknown Sex and Gender Information Value Date Recorded Sex Assigned at Not on file 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
--- OUTSIDE RECORDS SUMMARY | 2025-04-03 15:04 | XMS_ITS | Encounter Summary ---
Author Organization [facility] Address [address] [place] [address] Care Team Providers Care Energy Conservation Engineer Name Role Phone Yumi Alexander DO Primary Care Provider +1- [phone] Encounter Details Date Type Department Care Team (Latest Contact Info) Description 08/29/2003 Outpatient Historical [address] [phone] Sd Constantino MD [address] [place] [phone] ACUTE FRONTAL SINUSITIS (Primary Dx) Social History Tobacco Use Types Packs/Day Years Used Date Smoking Tobacco: Never Assessed Comments Unknown Sex and Gender Information Value Date Recorded Sex Assigned at Not on file 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
--- OUTSIDE RECORDS SUMMARY | 2025-04-03 15:04 | XMS_ITS | Encounter Summary ---
Author Organization [facility] Address [address] [place] [address] Care Team Providers Care Crane Operator Name Role Phone Yumi Alexander DO Primary Care Provider +1- [phone] Encounter Details Date Type Department Care Team (Latest Contact Info) Description 08/10/2003 Outpatient Historical [facility] Breast [place] [address] [place] [address] [place] [phone] Yaneli Flores MD [address] [place] [phone] SCREENING MAMM-MAILG NEOPL-OTHER (Primary Dx) Social History Tobacco Use Types Packs/Day Years Used Date Smoking Tobacco: Never Assessed Comments Unknown Sex and Gender Information Value Date Recorded Sex Assigned at Not on file 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
--- OUTSIDE RECORDS SUMMARY | 2025-04-03 15:04 | XMS_ITS | Encounter Summary ---
Author Organization [facility] Address [address] [place] [address] Care Team Providers Care Litigation Manager Name Role Phone Yumi Alexander DO Primary Care Provider +1- [phone] Encounter Details Date Type Department Care Team (Latest Contact Info) Description 10/29/2003 Outpatient Historical [address] [phone] Shanda Duong MD [address] [address] CELLULITIS NOS (Primary Dx); ALLERGY, UNSPECIFIED; ESOPHAGEAL REFLUX; COUGH Social History Tobacco Use Types Packs/Day Years Used Date Smoking Tobacco: Never Assessed Comments Unknown Sex and Gender Information Value Date Recorded Sex Assigned at Not on file 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
--- OUTSIDE RECORDS SUMMARY | 2025-04-03 15:04 | XMS_ITS | Encounter Summary ---
Author Organization [facility] Address [address] [place] [address] Care Team Providers Care Magnetizer Name Role Phone Yumi Alexander DO Primary Care Provider +1- [phone] Encounter Details Date Type Department Care Team (Latest Contact Info) Description 04/06/2002 Outpatient Historical [address] [phone] Yaneli Flores MD [address] [place] [phone] HEMORRHOIDS NOS (Primary Dx); PROLAPSE OF VAGINAL WALL Social History Tobacco Use Types Packs/Day Years Used Date Smoking Tobacco: Never Assessed Comments Unknown Sex and Gender Information Value Date Recorded Sex Assigned at Not on file 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
--- OUTSIDE RECORDS SUMMARY | 2025-04-03 15:04 | XMS_ITS | Encounter Summary ---
Author Organization [facility] Address [address] [place] [address] Care Team Providers Care Sprinkler Installer Name Role Phone Yumi Alexander DO Primary Care Provider +1- [phone] Encounter Details Date Type Department Care Team (Latest Contact Info) Description 12/25/2010 Ancillary Orders [facility] Pre-Registration [place] CALL TO MAKE APPOINTMENT ONLY [address] [place] [phone] Chantal Ahmadi, MOONER [address] [place] [phone] Other screening mammogram Social History Tobacco Use Types Packs/Day Years Used Date Smoking Tobacco: Never Alcohol Use Standard Drinks/Week Comments No 0 (1 standard drink = 0.6 oz pur e alcohol) Comments No Sex and Gender Information Value Date Recorded Sex Assigned at Not on file 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:37 AM FUNNEL COATER Gender Identity Not on file Sexual Orientation Not on file documented as of this encounter Plan of Treatment Not on file documented as of this encounter Visit Diagnoses Diagnosis Other screening mammogram documented in this encounter Care Teams Sprinkler Installer Relationship Specialty Start Date End Date Yumi Alexander DO PCP - General Family Practice 10/05/17 documented as of this encounter
--- OUTSIDE RECORDS SUMMARY | 2025-04-03 15:05 | XMS_ITS | Clinical Summary ---
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 Gender Identity Not on file Sexual [...] (#1) 2025 Medical Devices Implanted Type Area Computer Field Technician Device Identifier Shelf Expiration Date Model / Serial / Lot Lens Io Tecnis 1pc 26.5 [id number] - [id number] Implanted:Qty: 1 on 11/08/2017 by Segun Boudreaux DO Eye Left: Eye [employer] 06/13/2021 [id number] / [id number] / N/A Lens Io Tecnis 1pc 25.5 [id number] - [id number] Implanted:Qty: 1 on 11/22/2017 by Segun Boudreaux DO Eye Right: Eye [employer] 05/12/2021 [id number] / [id number] / Procedures Procedure Name Priority Date/Time Associated [...] approximately two years. jaw - uploaded from [employer] - Narrative 11/06/2008 5:26 PM CDT DEXA [...] approximately two years. jaw - uploaded from [employer] - us Reji Woody MD DIAGNOSTIC IMAGING ORDERABLES Fi nal Result from Last 3 Months or Most Recently Relevant to Health Maintenance Insurance [facility] MEDICARE Care Teams Ice Skating Teacher Relationship Specialty Start Date End Date Yumi Alexander DO PCP - General Family Practice 10/05/17
--- NOTE | 2025-04-03 15:08 | CT_ITS ---
WS: [id number] CT LUMBAR SPINE, noncontrast. HISTORY: fall TECHNIQUE: Contiguous 2.0 mm axial imaging are performed. Sagittal and coronal reformats are submitted and reviewed. All CT scans at [facility] use at least one of these dose optimization techniques: automated exposure control; mA and/or kV adjustment per patient size (includes targeted exams where dose is matched to clinical indication); or iterative reconstruction. IV contrast: None DLP: 507.13 mGy.cm COMPARISON: MRI 06/01/2022 Bones are diffusely osteopenic. Vertebroplasty is at T12-L4. 30% compression fracture without retropulsion at L5. L2 retrolisthesis by 3 mm. L1-2: No stenosis. L2-3: Small central disc protrusion encroaching upon the subarticular recesses. Mild bilateral subarticular recess stenosis. L3-4: Diffuse annular disc bulging. No stenosis. L4-5: Diffuse annular disc bulging with no stenosis. L5-S1: Shallow RIGHT paracentral disc protrusion. No stenosis or fracture. Atherosclerosis aorta. Right-sided diaphragmatic hernia. CT/CT lumbar spine wo con* [id number] IMPRESSION: 1. No acute lumbar fracture identified. 2. Prior vertebroplasties from T12-L4. 3. Mild anterior wedging of L5 similar to the prior MRI from 06/01/2022. No obv ious progression of this fracture. 4. Small central disc protrusion at T2-3 encroaching upon the subarticular rec esses.
--- NOTE | 2025-04-03 15:08 | CT_ITS ---
WS: [id number] CT PELVIS NONCONTRAST HISTORY: fall, RIGHT hip pain. TECHNIQUE: Contiguous imaging is performed of the pelvis without contrast. Coronal and sagittal reformats are reviewed. All CT scans at [facility] use at least one of these dose optimization techniques: automated exposure control; mA and/or kV adjustment per patient size (includes targeted exams where dose is matched to clinical indication); or iterative reconstruction. DLP: 507.13 mGy.cm COMPARISON: 05/06/2015, radiograph 04/01/2025 Bones are osteopenic. No acute fractures are identified. Linear calcific density over the lateral RIGHT greater trochanter. This is probably calcification from previously injured gluteus medius tendon. Pubic rami are intact. Acetabulum intact. No soft tissue hematomas. Atherosclerotic plaque within the visualized abdominal aorta. 30% compression fracture L5 without retropulsion. Vertebroplasty at L4. CT/CT bony pelvis [id number] IMPRESSION: 1. No acute RIGHT hip fracture. 2. No pelvic fractures are identified. 3. Osteopenia. 4. Calcification in the expected location of the RIGHT gluteus medius tendon i s probably from a prior tear with healing.
--- NOTE | 2025-04-03 15:09 | W.ED.BACK ---
HPI - Back Pain/Injury General: Chief Complaint: Back Pain/Injury Stated Complaint: BACK PAIN Time Seen by Provider: 04/03/25 15:01 Source: patient Mode of arrival: EMS Limitations: no limitations History of Present Illness: Patient is an 89-year-old female who presents again to the emergency department by ambulance due to lower back pain from a fall approximately 5 days or so ago. 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 She was seen here on 04/01 and had negative XRs of her right hip/pelvis. States pain has continued to worsen. States she has been somewhat ambulatory since the fall but states it is difficult. No bowel or bladder incontinence, no saddle anesthesia, no paralysis or weakness to legs. She does report a history of osteoporosis and has had multiple kyphoplasty procedures. MD elicited complaint: back pain Pertinent past history: recent trauma Onset (ago): day(s) Timing: constant Severity: severe Location: lumbar spine Radiation: right upper leg (R hip) Exacerbating factors: movement and walking Relieving factors: none Context: fall Associated symptoms: Reports no associated symptoms and difficulty walking (due to back pain); Deny abdominal pain, chills, dysuria, fatigue, fever(s), hematuria or syncope Work related injury: No Related Data Home Medications ?Medication ?Instructions ?Recorded ?Confirmed naproxen sodium 220 mg tablet 220 mg PO BID PRN Fever Or Pain 04/01/25 04/01/25 Previous Rx's ?Medication ?Instructions ?Recorded fluticasone propionate 50 2 spray intranasal DAILY allergy 05/27/23 mcg/actuation nasal symptoms #16 grams spray,suspension (Flonase Allergy Relief) furosemide 20 mg tablet See Rx Instructions .Route 02/26/25 .COMPLEX #30 tabs Allergies Allergy/AdvReac Type Severity Reaction Status Date / Time amoxicillin (From Augmentin) Allergy ADR-Vomitin Verified 03/26/25 09:33 g clavulanic acid (From Allergy ADR-Vomitin Verified 03/26/25 09:33 Augmentin) g Review of Systems Const: Denies: fever(s), chills, body aches, fatigue or malaise Card: Denies: chest pain, palpitations, lightheadedness, syncope or pre-syncope Resp: Denies: dyspnea GI: Denies: abdominal pain : Denies: flank pain, dysuria or hematuria Musc: Reports: back pain and joint pain (R hip); Denies: neck pain, extremity pain, extremity swelling, joint swelling or joint redness Neuro: Reports: difficulty walking (due to back pain); Denies: headache(s), numbness in extremities, weakness in extremities or sensory changes PFSH ED PFSH: Medical History History of compression fracture of spine History of thyroid nodule Osteoporosis 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 GERD (gastroesophageal reflux disease) Osteoarthritis Surgical History History of kyphoplasty H/O hemorrhoidectomy H/O cervical spine surgery Family History Mother Diabetes Stroke Brother Cancer Father Heart disease Social History Smoking and tobacco/nicotine status: never used tobacco/nicotine Second hand smoke exposure: No Alcohol intake: never Substance/Drug Use: never Do you think of yourself as: Straight/Heterosexual Current gender identity: Female Female Reproductive History: Spontaneous abortions: No Physical Exam Const: COMMON NORMALS: no acute distress, patient oriented x3, no limitations, alert and well nourished GENERAL APPEARANCE: cooperative and frail appearing ORIENTATION/CONSCIOUSNESS: Yes awake, Yes oriented to person, Yes oriented to place and Yes oriented to time HENMT: COMMON NORMALS: normocephalic and atraumatic HEAD & SCALP: normal to inspection, normocephalic and atraumatic Neck/C-Spine: COMMON NORMALS: full ROM CERVICAL SPINE: No Cervical spine tenderness Chest: COMMONS NORMALS: normal inspection of the chest and normal palpation of entire chest wall Resp: COMMON NORMALS: normal respiratory effort and clear to auscultation bilaterally AUSCULTATION: clear to auscultation bilaterally Cardio: COMMON NORMALS: regular rate and regular rhythm RATE: regular rate RHYTHM: regular rhythm GI: COMMON NORMALS: Normal to inspection, nondistended, normoactive bowel sounds present, Soft to palpation, non-tender, No hepatosplenomegaly present and no masses PALPATION: Yes Soft to palpation and Yes No hepatosplenomegaly present : COMMON NORMALS: Yes no CVA tenderness BLADDER/KIDNEY EXAM: Yes no CVA tenderness Back/Pelvis: COMMON NORMALS: no CVA tenderness THORACIC SPINE/UPPER BACK: No thoracic spinal tenderness LUMBAR SPINE/LOWER BACK: Yes lumbar spinal tenderness PELVIS: Yes buttocks normal and No sciatic notch tenderness SACRUM: tenderness COCCYX: no tenderness Extremity: COMMON NORMALS: capillary refill normal, no joint enlargement, no clubbing, cyanosis or edema, no calf tenderness and no pedal edema GENERAL: Yes normal exam except as noted RIGHT LOWER EXTREMITY: Yes hip joint (no shortening/rotation) Right hip: Yes ROM (painful ROM) and Yes neurovascular exam (normal) Neuro: COMMON NORMALS: patient oriented x3, moves all extremities, no focal motor deficits and no sensory deficits noted SENSORIUM/ORIENTATION: Yes alert, Yes oriented to person, Yes oriented to place and Yes oriented to time Course Vital Signs: Vital signs: Vital Signs Temperature 98.2 F 04/03/25 15:00 Pulse Rate 85 04/03/25 15:00 Respiratory Rate 16 04/03/25 15:00 Blood Pressure 177/92 04/03/25 15:00 Pulse Oximetry 95 04/03/25 15:00 Oxygen Delivery Me thod Room Air 04/03/25 15:00 MDM - Back Pain/Injury Medical Decision Making CT imaging of bony pelvis and lumbar spine were obtained showing no acute fractures. Patient states she feels comfortable and wants to go home. She has declined pain medications while here. She does not want a prescription for pain medications at home and states she will continue to take Naproxen. Recommend she follow up with her primary care provider later this week/early next week for re-evaluation. Medical Records I reviewed the patient's medical records. Labs Radiology Impressions Lumbar Spine CT 04/03/25 15:08 IMPRESSION: 1. No acute lumbar fracture identified. 2. Prior vertebroplasties from T12-L4. 3. Mild anterior wedging of L5 similar to the prior MRI from 06/01/2022. No obvious progression of this fracture. 4. Small central disc protrusion at T2-3 encroaching upon the subarticular recesses. Pelvis CT 04/03/25 15:08 IMPRESSION: 1. No acute RIGHT hip fracture. 2. No pelvic fractures are identified. 3. Osteopenia. 4. Calcification in the expected location of the RIGHT gluteus medius tendon is probably from a prior tear with healing. All radiology interpretation(s) finalized by discharge Discharge Plan Discharge Patient Disposition: Home Clinical Impression: Fall, Back contusion Condition: Stable Prescriptions: No Action fluticasone propionate [Flonase Allergy Relief] 50 mcg/actuation spray,suspension 2 spray intranasal DAILY Qty: 16 5RF furosemide 20 mg tablet See Rx Instructions .ROUTE .COMPLEX Qty: 30 1RF Dose Instruction: TAKE 1 TABLET BY MOUTH ONCE DAILY EVERY MORNING NEEDED FOR swelling Rx Instructions: TAKE 1 TABLET BY MOUTH ONCE DAILY EVERY MORNING NEEDED FOR swelling naproxen sodium 220 mg Tablet 220 mg PO BID PRN (Reason: Fever Or Pain) Discharge Orders: Discharge ED (Routine); Ordered 04/03/25 Ordered By: Domonique Asif Referrals: Deya Torres MD [Primary Care Provider, Family Practice] Patient Instructions: Patient Portal & [facility] Instructions Activity Restrictions/Additional Instructions: As we discussed, we obtained CT imaging of your lumbar spine (lower back) as well as your hips and pelvis including your sacrum and tailbone. These were negative for fractures. You have indicated you are comfortable going home. Recommend you use a walker at all times to help with ambulation. Recommend you follow-up with your primary care provider later this week/early next week for re-evaluation. You may return to the emergency department at anytime for any further concerns you may have. I hope you begin to feel better soon. Print Language: French Coding Level of Care Code ED Porcelain Buildup Assistant for Rohit Browne
[2025-04-03 16:50] VITALS: BP 181/86; PULSE 81; RESP 16; O2SAT 100
== END 2025-04-03 17:08 | disposition home or self-care (01) ==
PROVIDERS: Emergency Provider Physician Assistant; PCP Family Medicine
DX: S30.0XXA Contusion of lower back and pelvis, initial encounter (principal); W19.XXXA Unspecified fall, initial encounter
CPT/HCPCS: 72131; 72192; 99284